=== PATIENT | female | born 1955 | race Two or more races ===

== ENCOUNTER → 2020-09-21 | Outpatient (CLI) | payer OTHER ==
[2020-09-21 08:51] LABS: Basophils # (auto) 0 10 ^3/uL (0-0.2); Basophils % (auto) 0.6 % (0.0-2.0); Eosinophils # (auto) 0.1 10 ^3/uL (0-0.8); Eosinophils % (auto) 2.5 % (0.0-7.0); Hematocrit 35.7 % (36.0-46.0); Hemoglobin 11.9 g/dL (12.2-16.2); Lymphocytes # (auto) 0.7 10 ^3/uL (0.4-5.4); Lymphocytes % (auto) 22.2 % (10.0-50.0); Mean Corpuscular Hemoglobin 28.3 pg (28.0-32.0); Mean Corpuscular Hgb Conc. 33.4 g/dL (32.0-36.0); Mean Corpuscular Volume 84.8 fL (80.0-100.0); Monocytes # (auto) 0.3 10 ^3/uL (0-1.3); Monocytes % (auto) 10.7 % (0.0-12.0); Neutrophils # (auto) 1.9 10 ^3/uL (1.6-8.6); Nucleated Red Blood Cells % 0.2 %; Platelet Count (auto) 89 10^3/uL (140-450); Red Blood Cells 4.21 10^6/uL (4.0-5.20); Red Cell Distribution Width 14.8 % (11.8-14.3)
[2020-09-21 08:53] LABS: Urine Bacteria MANY /hpf (None Seen); Urine Blood Negative /uL (Negative); Urine Mucus FEW (None Seen); Urine Specific Gravity 1.019 (1.001-1.035); Urine WBC 28 /hpf (0 - 5)
[2020-09-21 09:05] LABS: Albumin 2.9 g/dL (3.4-5.0); Calcium 9.1 mg/dL (8.5-10.1); Potassium 4.7 mmol/L (3.5-5.1)
[2020-09-21 09:10] LABS: BUN/Creatinine Ratio 22.1; Bilirubin, Total 1.1 mg/dL (0.2-1.0); Total Protein 7.1 g/dL (6.4-8.2)
[2020-09-21 09:17] LABS: Folate (Folic Acid) 18.25 ng/mL (5.38-24)
== END | disposition home or self-care (01) ==
LOC: LAB 08:21
PROVIDERS: ATTEND Internal Medicine
DX: Z00.00 Encounter for general adult medical examination without abnormal findings (principal)
CPT/HCPCS: 36415; 80053; 80061; 81001; 82274; 82306; 82607; 82746; 83036; 83880; 84443; 85025; 87086

== ENCOUNTER → 2020-11-05 | Outpatient (CLI) | payer OTHER | END | disposition home or self-care (01) | LOC: XYW 08:06 | PROVIDERS: ATTEND Internal Medicine | DX: I89.0 Lymphedema, not elsewhere classified (principal) | CPT/HCPCS: 93306 ==

== ENCOUNTER → 2021-01-20 | Outpatient (CLI) | payer OTHER ==
[2021-01-20 16:14] LABS: BUN/Creatinine Ratio 20.9; Calcium 9.2 mg/dL (8.5-10.1); Potassium 3.5 mmol/L (3.5-5.1)
== END | disposition home or self-care (01) ==
LOC: LAB 15:41
PROVIDERS: ATTEND Internal Medicine
DX: I89.0 Lymphedema, not elsewhere classified (principal)
CPT/HCPCS: 36415; 80048

== ENCOUNTER → 2021-09-21 | Outpatient (CLI) | payer OTHER ==
[2021-09-21 09:42] LABS: Basophils # (auto) 0 10 ^3/uL (0-0.2); Basophils % (auto) 0.5 % (0.0-2.0); Eosinophils # (auto) 0.1 10 ^3/uL (0-0.8); Eosinophils % (auto) 2.4 % (0.0-7.0); Hematocrit 36.2 % (36.0-46.0); Hemoglobin 12.2 g/dL (12.2-16.2); Lymphocytes # (auto) 0.7 10 ^3/uL (0.4-5.4); Lymphocytes % (auto) 24.2 % (10.0-50.0); Mean Corpuscular Hemoglobin 28.5 pg (28.0-32.0); Mean Corpuscular Hgb Conc. 33.8 g/dL (32.0-36.0); Mean Corpuscular Volume 84.4 fL (80.0-100.0); Monocytes # (auto) 0.3 10 ^3/uL (0-1.3); Monocytes % (auto) 11.5 % (0.0-12.0); Neutrophils # (auto) 1.8 10 ^3/uL (1.6-8.6); Neutrophils % (auto) 61.4 % (37.0-80.0); Nucleated Red Blood Cells % 0.3 %; Red Blood Cells 4.29 10^6/uL (4.0-5.20); Red Cell Distribution Width 16.1 % (11.8-14.3); White Blood Cell 2.9 10^3/uL (4.4-10.8)
[2021-09-21 11:39] LABS: Albumin 3.1 g/dL (3.4-5.0); BUN/Creatinine Ratio 17.6; Calcium 8.8 mg/dL (8.5-10.1); Total Protein 6.9 g/dL (6.4-8.2)
== END | disposition home or self-care (01) ==
LOC: LAB 09:18
PROVIDERS: ATTEND Student in an Organized Health Care Education/Training Program
DX: Z00.00 Encounter for general adult medical examination without abnormal findings (principal)
CPT/HCPCS: 36415; 80053; 80061; 85025

== ENCOUNTER → 2023-04-18 | Outpatient (CLI) | payer OTHER ==
[2023-04-18 10:45] LABS: Basophils # (auto) 0 10 ^3/uL (0-0.2); Basophils % (auto) 0.5 % (0.0-2.0); Eosinophils # (auto) 0 10 ^3/uL (0-0.8); Lymphocytes # (auto) 0.6 10 ^3/uL (0.4-5.4); Lymphocytes % (auto) 22.5 % (10.0-50.0); Mean Corpuscular Hemoglobin 27.9 pg (28.0-32.0); Mean Corpuscular Hgb Conc. 32.2 g/dL (32.0-36.0); Mean Corpuscular Volume 86.6 fL (80.0-100.0); Monocytes # (auto) 0.2 10 ^3/uL (0-1.3); Monocytes % (auto) 8.3 % (0.0-12.0); Neutrophils # (auto) 1.6 10 ^3/uL (1.6-8.6); Neutrophils % (auto) 66.7 % (37.0-80.0); Nucleated Red Blood Cells % 0.2 %; Red Blood Cells 3.58 10^6/uL (4.0-5.20); Red Cell Distribution Width 16.8 % (11.8-14.3); White Blood Cell 2.5 10^3/uL (4.4-10.8)
[2023-04-18 11:08] LABS: Urine Bacteria MOD /hpf (None Seen); Urine Blood Negative /uL (Negative); Urine Clarity HAZY (Clear); Urine Color Yellow (Yellow); Urine Hyaline Cast FEW /lpf (0 - 2); Urine Mucus FEW (None Seen); Urine Protein, UAD Negative (Negative); Urine WBC 27 /hpf (0 - 5); Urine pH 5.5 (5.0-8.0)
[2023-04-18 11:40] LABS: Alanine Aminotransferase 24 U/L (7-40); Albumin 3.2 g/dL (3.2-4.8); Alkaline Phosphatase 115 U/L (46-116); Anion Gap 7 (5-15); Aspartate Aminotransferase 42 U/L (13-40); BUN/Creatinine Ratio 16.9 (10.0-20.0); Blood Urea Nitrogen 11 mg/dL (9-23); Calcium 8.7 mg/dL (8.5-10.1); Carbon Dioxide 24 mmol/L (20-30); Chloride 114 mmol/L (98-107); Glucose 96 mg/dL (74-106); LDL Cholesterol 71 mg/dL (< 100); Potassium 3.9 mmol/L (3.5-5.1); Sodium 145 mmol/L (136-145); Triglycerides 66 mg/dL (< 150)
[2023-04-18 11:41] LABS: Bilirubin, Total 2.7 mg/dL (0.2-1.0); Cholesterol 140 mg/dL (< 200); HDL Cholesterol 50 mg/dL (40-59); Total Protein 6.2 g/dL (5.7-8.2)
== END | disposition home or self-care (01) ==
LOC: LAB 10:23
PROVIDERS: ATTEND Internal Medicine
DX: I10 Essential (primary) hypertension (principal)
CPT/HCPCS: 36415; 80053; 80061; 81001; 82306; 84443; 85025

== ENCOUNTER → 2023-07-05 | Outpatient (CLI) | payer OTHER | END | disposition home or self-care (01) | LOC: LAB 12:34 | PROVIDERS: ATTEND Internal Medicine | DX: Z12.11 Encounter for screening for malignant neoplasm of colon (principal) | CPT/HCPCS: 82274 ==

== ENCOUNTER → 2023-11-16 | Outpatient (CLI) | payer MEDICARE, MEDICAID | END | disposition home or self-care (01) | LOC: XYW 12:19 | PROVIDERS: ATTEND Internal Medicine | DX: R06.02 Shortness of breath (principal); I51.89 Other ill-defined heart diseases | CPT/HCPCS: 93306 ==

== ENCOUNTER → 2023-11-19 | Outpatient (CLI) | payer MEDICARE, MEDICAID ==
[2023-11-19 08:07] LABS: Basophils # (auto) 0 10 ^3/uL (0-0.2); Eosinophils # (auto) 0 10 ^3/uL (0-0.8); Lymphocytes # (auto) 0.5 10 ^3/uL (0.4-5.4); Monocytes # (auto) 0.2 10 ^3/uL (0-1.3); Neutrophils # (auto) 1.1 10 ^3/uL (1.6-8.6); Nucleated Red Blood Cells % 0.1 %; Red Cell Distribution Width 18.3 % (11.8-14.3)
[2023-11-19 08:08] LABS: Basophils % (auto) 0.5 % (0.0-2.0); Eosinophils % (auto) 2.5 % (0.0-7.0); Hematocrit 28.1 % (36.0-46.0); Hemoglobin 8.9 g/dL (12.2-16.2); Lymphocytes % (auto) 27.6 % (10.0-50.0); Mean Corpuscular Hemoglobin 27.1 pg (28.0-32.0); Mean Corpuscular Hgb Conc. 31.6 g/dL (32.0-36.0); Mean Corpuscular Volume 85.6 fL (80.0-100.0); Monocytes % (auto) 11.8 % (0.0-12.0); Neutrophils % (auto) 57.6 % (37.0-80.0); Red Blood Cells 3.29 10^6/uL (4.0-5.20)
[2023-11-19 08:19] LABS: White Blood Cell 1.9 10^3/uL (4.4-10.8)
[2023-11-19 08:43] LABS: Anisocytosis Slight; Hypochromia Slight; Ovalocytes FEW; Platelet Estimate Decreased
[2023-11-19 09:03] LABS: Alanine Aminotransferase 18 U/L (7-40); Albumin 2.9 g/dL (3.2-4.8); Alkaline Phosphatase 131 U/L (46-116); Anion Gap 8 (5-15); Aspartate Aminotransferase 40 U/L (13-40); BUN/Creatinine Ratio 15.9 (10.0-20.0); Blood Urea Nitrogen 10 mg/dL (9-23); Calcium 8.9 mg/dL (8.5-10.1); Carbon Dioxide 24 mmol/L (20-30); Chloride 112 mmol/L (98-107); Glucose 93 mg/dL (74-106); Sodium 144 mmol/L (136-145)
[2023-11-19 09:04] LABS: Bilirubin, Total 2.6 mg/dL (0.2-1.0); Total Protein 5.8 g/dL (5.7-8.2)
== END | disposition home or self-care (01) ==
LOC: LAB 07:48
PROVIDERS: ATTEND Internal Medicine
DX: I10 Essential (primary) hypertension (principal); E55.9 Vitamin D deficiency, unspecified; R73.03 Prediabetes; D64.9 Anemia, unspecified; Z86.2 Personal history of diseases of the blood and blood-forming organs and certain disorders involving the immune mechanism
CPT/HCPCS: 36415; 80053; 82274; 82306; 83036; 83540; 83550; 84443; 85025

== ENCOUNTER → 2023-11-20 | Outpatient (CLI) | payer MEDICARE, MEDICAID ==
[2023-11-20 07:25] LABS: Basophils # (auto) 0 10 ^3/uL (0-0.2); Eosinophils # (auto) 0.1 10 ^3/uL (0-0.8); Lymphocytes # (auto) 0.5 10 ^3/uL (0.4-5.4); Monocytes # (auto) 0.3 10 ^3/uL (0-1.3); Neutrophils # (auto) 1.4 10 ^3/uL (1.6-8.6); Red Blood Cells 3.39 10^6/uL (4.0-5.20); White Blood Cell 2.3 10^3/uL (4.4-10.8)
[2023-11-20 07:27] LABS: Basophils % (auto) 0.5 % (0.0-2.0); Eosinophils % (auto) 2.5 % (0.0-7.0); Hematocrit 28.9 % (36.0-46.0); Lymphocytes % (auto) 21.9 % (10.0-50.0); Mean Corpuscular Hemoglobin 26.7 pg (28.0-32.0); Mean Corpuscular Hgb Conc. 31.2 g/dL (32.0-36.0); Mean Corpuscular Volume 85.5 fL (80.0-100.0); Monocytes % (auto) 11.1 % (0.0-12.0); Nucleated Red Blood Cells % 0.3 %; Red Cell Distribution Width 18.2 % (11.8-14.3)
== END | disposition home or self-care (01) ==
LOC: LAB 06:35
PROVIDERS: ATTEND Internal Medicine
DX: I89.0 Lymphedema, not elsewhere classified (principal); D64.9 Anemia, unspecified
CPT/HCPCS: 36415; 85025

== ENCOUNTER → 2023-11-27 | Outpatient (CLI) | payer MEDICARE, MEDICAID ==
[2023-11-27 12:26] LABS: INR 1.51 (0.9-1.15); Prothrombin Time 15.5 sec (9.3-11.8)
== END | disposition home or self-care (01) ==
LOC: LAB 11:36
PROVIDERS: ATTEND Internal Medicine
DX: Z01.812 Encounter for preprocedural laboratory examination (principal); D61.818 Other pancytopenia
CPT/HCPCS: 36415; 85610

== ENCOUNTER → 2023-12-04 | Outpatient (CLI) | payer MEDICARE, MEDICAID ==
[~2023-12-04] VITALS: Ht 167.6 cm; Wt 99.8 kg
[~2023-12-04] MED LIST: FERR-7 PO; FURO1TAB31 PO; HYDR-4902 PO; LIDOCAINE 2%HCL (LOCAL ANESTH.) INJ 10ml MDV ONE; MIDAZOLAM HCL 2MG/2ML 2ml VIAL (1mg/ml) ONE; POTA-36 PO; TRAM50TA2 PO
[2023-12-04 09:15] VITALS: BP 149/67; PULSE 79; RESP 18
[2023-12-04] MEDS: fentaNYL CITRATE 100 MCG/2 ML VL IV ONE (09:15)
[2023-12-04] MEDS: MIDAZOLAM HCL 2MG/2ML 2ml VIAL (1mg/ml) IV ONE (09:15)
== END | disposition home or self-care (01) ==
LOC: XYW 08:26
PROVIDERS: ATTEND Internal Medicine
DX: D61.818 Other pancytopenia (principal); F41.9 Anxiety disorder, unspecified; M17.0 Bilateral primary osteoarthritis of knee; M16.0 Bilateral primary osteoarthritis of hip; I50.32 Chronic diastolic (congestive) heart failure; E66.01 Morbid (severe) obesity due to excess calories; Z79.899 Other long term (current) drug therapy; Z98.890 Other specified postprocedural states
CPT/HCPCS: 38222; 72192; 77012; C1729; J2001; J2250; 10005; 99152

== ENCOUNTER 2023-12-09 18:12 | Inpatient (IN) | payer MEDICARE, MEDICAID ==
[~2023-12-09] VITALS: Ht 170.2 cm; Wt 119.9 kg
[~2023-12-09 18:12] MED LIST changes: -FERR-7 PO; -FURO1TAB31 PO; -HYDR-4902 PO; -LIDOCAINE 2%HCL (LOCAL ANESTH.) INJ 10ml MDV ONE; -MIDAZOLAM HCL 2MG/2ML 2ml VIAL (1mg/ml) ONE; -POTA-36 PO
[2023-12-09 20:23] LABS: Alanine Aminotransferase 24 U/L (7-40); Alkaline Phosphatase 94 U/L (46-116); Anion Gap 12 (5-15); Aspartate Aminotransferase 49 U/L (13-40); BUN/Creatinine Ratio 12.9 (10.0-20.0); Bilirubin, Total 4.6 mg/dL (0.2-1.0); Blood Urea Nitrogen 9 mg/dL (9-23); Calcium 8.7 mg/dL (8.5-10.1); Carbon Dioxide 18 mmol/L (20-30); Chloride 109 mmol/L (98-107); Glucose 110 mg/dL (74-106); Potassium 3.8 mmol/L (3.5-5.1); Sodium 139 mmol/L (136-145); Total Protein 6.1 g/dL (5.7-8.2)
[2023-12-09] MEDS ORDERED: SODIUM CHLORIDE 0.9% 2,000 ML IV ONE (20:45)
[2023-12-09 21:36] LABS: Basophils # (auto) 0 10 ^3/uL (0-0.2); Basophils % (auto) 0.1 % (0.0-2.0); Eosinophils # (auto) 0 10 ^3/uL (0-0.8); Hematocrit 37.5 % (36.0-46.0); Hemoglobin 11.5 g/dL (12.2-16.2); Lymphocytes # (auto) 0.2 10 ^3/uL (0.4-5.4); Lymphocytes % (auto) 2.3 % (10.0-50.0); Mean Corpuscular Hgb Conc. 30.6 g/dL (32.0-36.0); Mean Corpuscular Volume 88.4 fL (80.0-100.0); Monocytes # (auto) 0.2 10 ^3/uL (0-1.3); Monocytes % (auto) 2.9 % (0.0-12.0); Neutrophils # (auto) 6.5 10 ^3/uL (1.6-8.6); Neutrophils % (auto) 94.7 % (37.0-80.0); Nucleated Red Blood Cells % 0.1 %; Red Blood Cells 4.25 10^6/uL (4.0-5.20); White Blood Cell 6.9 10^3/uL (4.4-10.8)
[2023-12-09 21:37] LABS: Red Cell Distribution Width 21.5 % (11.8-14.3)
[2023-12-09] MEDS: cefTRIAXone 1GM/50ML D5W 50 ML IV ONE (23:32)
[2023-12-09] MEDS: ACETAMINOPHEN 325 MG TAB PO ONE (23:32)
[2023-12-09] MEDS: VANCOMYCIN 1GM/200ML 200 ML IV ONE (23:33)
[2023-12-10] VITALS (7 sets, daily range): BP systolic 125–139; BP diastolic 49–53; PULSE 94–115; RESP 16–20; TEMP 97.5–98.2; O2SAT 93–99
[2023-12-10] MEDS ORDERED: NITROGLYCERIN 0.4 MG SL TAB SL PRN
[2023-12-10] MEDS: SODIUM CHLORIDE 0.9% 1,000 ML IV ONE (00:15)
[2023-12-10] MEDS ORDERED: ONDANSETRON HCL 4 MG/2 ML VIAL IV PRN (00:15)
[2023-12-10] MEDS ORDERED: MORPHINE SULFATE INJ 2 MG/ml SYRG IV PRN ×2 (00:15)
[2023-12-10 01:46] LABS: Urine Bacteria MANY /hpf (None Seen); Urine Blood Negative /uL (Negative); Urine Clarity Turbid (Clear); Urine Color Dark-Yellow (Yellow); Urine Mucus FEW (None Seen); Urine Protein, UAD TRACE (Negative); Urine Specific Gravity 1.021 (1.001-1.035); Urine Urobilinogen 3 mg/dL (Negative); Urine WBC 3 /hpf (0 - 5); Urine pH 5.5 (5.0-9.0)
[2023-12-10] MEDS ORDERED: FUROSEMIDE 40 MG TAB PO SCH (10:00)
[2023-12-10] MEDS ORDERED: ENOXAPARIN SOD 40 MG/0.4 ML SYRINGE SC SCH (10:00)
[2023-12-10] MEDS: ACETAMINOPHEN 325 MG TAB PO PRN (10:56)
[2023-12-10] MEDS ORDERED: HYDR-4902 PO (11:14)
[2023-12-10] MEDS ORDERED: FURO1TAB31 PO (11:14)
[2023-12-10] MEDS ORDERED: FERR-7 PO (11:14)
[2023-12-10] MEDS ORDERED: POTA-36 PO (11:14)
[2023-12-10] MEDS ORDERED: INFLUENZA QUAD 2023-2024 0.5 ML SYRG IM ONE (11:15)
[2023-12-10] MEDS ORDERED: PNEUMOCOCCAL VACC POLYS 25 MCG/0.5 ML VIAL IM ONE (11:15)
[2023-12-10 11:42] LABS: Alanine Aminotransferase 19 U/L (7-40); Albumin 2.7 g/dL (3.2-4.8); Alkaline Phosphatase 69 U/L (46-116); Anion Gap 11 (5-15); Aspartate Aminotransferase 26 U/L (13-40); BUN/Creatinine Ratio 19.8 (10.0-20.0); Blood Urea Nitrogen 16 mg/dL (9-23); Calcium 8.7 mg/dL (8.5-10.1); Carbon Dioxide 20 mmol/L (20-30); Chloride 108 mmol/L (98-107); Glucose 99 mg/dL (74-106); LDL Cholesterol 45 mg/dL (< 100); Magnesium 1.8 mg/dL (1.6-2.6); Potassium 3.7 mmol/L (3.5-5.1); Sodium 139 mmol/L (136-145); Triglycerides 73 mg/dL (< 150)
[2023-12-10 11:43] LABS: Bilirubin, Direct 2.4 mg/dL (<0.3); Bilirubin, Total 4.3 mg/dL (0.2-1.0); Cholesterol 114 mg/dL (< 200); HDL Cholesterol 32 mg/dL (40-59); Total Protein 5.3 g/dL (5.7-8.2)
[2023-12-10 11:47] LABS: Lactic Acid w/Reflex 8.4 mmol/L (0.4-2.0)
[2023-12-10 11:51] LABS: Basophils # (auto) 0 10 ^3/uL (0-0.2); CRP High Sensitivity 6.51 mg/dL (<1.0); Eosinophils # (auto) 0 10 ^3/uL (0-0.8); Hemoglobin 10.4 g/dL (12.2-16.2); Lymphocytes # (auto) 0.3 10 ^3/uL (0.4-5.4); Monocytes # (auto) 0.1 10 ^3/uL (0-1.3); Neutrophils # (auto) 6.3 10 ^3/uL (1.6-8.6); White Blood Cell 6.7 10^3/uL (4.4-10.8)
[2023-12-10 11:53] LABS: Hematocrit 33.4 % (36.0-46.0); Lymphocytes % (auto) 4.5 % (10.0-50.0); Mean Corpuscular Hemoglobin 27.3 pg (28.0-32.0); Mean Corpuscular Hgb Conc. 31.3 g/dL (32.0-36.0); Mean Corpuscular Volume 87.3 fL (80.0-100.0); Monocytes % (auto) 1.8 % (0.0-12.0); Neutrophils % (auto) 93.7 % (37.0-80.0); Red Blood Cells 3.82 10^6/uL (4.0-5.20)
[2023-12-10 12:01] LABS: Red Cell Distribution Width 21.5 % (11.8-14.3)
[2023-12-10 12:04] LABS: Partial Thromboplastin Time 38.9 SEC (24.5-34.5); Prothrombin Time 20.1 sec (9.3-11.8)
[2023-12-10] MEDS ORDERED: VANCOMYCIN PER PHARMACY 0 MG IV SCH (12:15)
[2023-12-10 12:21] LABS: Anisocytosis Slight; Platelet Estimate Decreased
[2023-12-10] MEDS: VANCOMYCIN 1GM/200ML 200 ML IV SCH (12:59)
[2023-12-10] MEDS: HYDROcodone-ACET 5/325MG TAB PO PRN (13:29)
[2023-12-10] MEDS ORDERED: IOHEXOL 350 MG/ML 100ML IJ ONE (15:28)
[2023-12-10 15:34] LABS: Free T3 1.35 pg/mL (2.3-4.2); Free T4 (Free Thyroxine) 1.03 ng/dL (0.89-1.76)
[2023-12-10] MEDS ORDERED: cefTRIAXone 1GM/50ML D5W 50 ML IV SCH (21:00)
[2023-12-10] MEDS: PIPERACILLIN-TAZOB 3.375GM 100 ML IV SCH (21:26)
[2023-12-11] VITALS (7 sets, daily range): BP systolic 115–148; BP diastolic 43–55; PULSE 89–98; RESP 16–20; TEMP 97.3–98.1; O2SAT 95–99
[2023-12-11 05:49] LABS: Basophils # (auto) 0 10 ^3/uL (0-0.2); Eosinophils # (auto) 0 10 ^3/uL (0-0.8); Hematocrit 30.4 % (36.0-46.0); Hemoglobin 9.4 g/dL (12.2-16.2); Lymphocytes # (auto) 0.4 10 ^3/uL (0.4-5.4); Lymphocytes % (auto) 5.9 % (10.0-50.0); Mean Corpuscular Hemoglobin 26.7 pg (28.0-32.0); Mean Corpuscular Volume 86.1 fL (80.0-100.0); Monocytes # (auto) 0.2 10 ^3/uL (0-1.3); Monocytes % (auto) 3.3 % (0.0-12.0); Neutrophils # (auto) 5.8 10 ^3/uL (1.6-8.6); Neutrophils % (auto) 90.8 % (37.0-80.0); Nucleated Red Blood Cells % 0.2 %; Red Blood Cells 3.53 10^6/uL (4.0-5.20); Red Cell Distribution Width 21.6 % (11.8-14.3); White Blood Cell 6.4 10^3/uL (4.4-10.8)
[2023-12-11 05:56] LABS: Alanine Aminotransferase 14 U/L (7-40); Albumin 2.4 g/dL (3.2-4.8); Alkaline Phosphatase 52 U/L (46-116); Anion Gap 8 (5-15); Aspartate Aminotransferase 22 U/L (13-40); BUN/Creatinine Ratio 21.6 (10.0-20.0); Bilirubin, Total 4.5 mg/dL (0.2-1.0); Blood Urea Nitrogen 16 mg/dL (9-23); Calcium 8.9 mg/dL (8.7-10.4); Carbon Dioxide 21 mmol/L (20-30); Chloride 107 mmol/L (98-107); Glucose 88 mg/dL (74-106); Sodium 136 mmol/L (136-145)
[2023-12-11 06:24] LABS: Lactic Acid w/Reflex 4.3 mmol/L (0.4-2.0)
[2023-12-11] MEDS: FUROSEMIDE 40 MG/4 ML VIAL IV ONE (09:28)
[2023-12-11] MEDS: metroNIDAZOLE 500MG/100ML 100 ML IV SCH (14:00)
[2023-12-11 15:01] LABS: Lactic Acid w/Reflex 3.6 mmol/L (0.4-2.0)
[2023-12-11] MEDS: CEFEPIME 1GM/ 50ML 50 ML IV SCH (17:33)
[2023-12-11] MEDS: VANCOMYCIN 1GM/200ML 200 ML IV SCH (23:06)
[2023-12-12] VITALS (8 sets, daily range): BP systolic 115–138; BP diastolic 46–54; PULSE 79–90; RESP 17–19; TEMP 90–99.3; O2SAT 92–100
[2023-12-12] MEDS: CEFEPIME 1GM/ 50ML 50 ML IV SCH (01:45)
[2023-12-12 06:30] LABS: Basophils # (auto) 0 10 ^3/uL (0-0.2); Basophils % (auto) 0.1 % (0.0-2.0); Eosinophils # (auto) 0 10 ^3/uL (0-0.8); Eosinophils % (auto) 0.1 % (0.0-7.0); Hematocrit 29.2 % (36.0-46.0); Hemoglobin 9.2 g/dL (12.2-16.2); Lymphocytes # (auto) 0.3 10 ^3/uL (0.4-5.4); Lymphocytes % (auto) 5.7 % (10.0-50.0); Mean Corpuscular Hemoglobin 27.1 pg (28.0-32.0); Mean Corpuscular Hgb Conc. 31.3 g/dL (32.0-36.0); Mean Corpuscular Volume 86.6 fL (80.0-100.0); Monocytes # (auto) 0.3 10 ^3/uL (0-1.3); Neutrophils # (auto) 5.3 10 ^3/uL (1.6-8.6); Neutrophils % (auto) 89.1 % (37.0-80.0); Nucleated Red Blood Cells % 0.2 %; Red Blood Cells 3.37 10^6/uL (4.0-5.20); Red Cell Distribution Width 21.1 % (11.8-14.3)
[2023-12-12 06:40] LABS: Alanine Aminotransferase 15 U/L (7-40); Albumin 2.3 g/dL (3.2-4.8); Alkaline Phosphatase 63 U/L (46-116); Anion Gap 8 (5-15); Aspartate Aminotransferase 28 U/L (13-40); BUN/Creatinine Ratio 25.6 (10.0-20.0); Bilirubin, Total 4.2 mg/dL (0.2-1.0); Blood Urea Nitrogen 21 mg/dL (9-23); Calcium 8.8 mg/dL (8.7-10.4); Carbon Dioxide 22 mmol/L (20-30); Chloride 104 mmol/L (98-107); Glucose 101 mg/dL (74-106); Magnesium 2.1 mg/dL (1.6-2.6); Potassium 3.6 mmol/L (3.5-5.1); Sodium 134 mmol/L (136-145); Total Protein 4.8 g/dL (5.7-8.2)
[2023-12-12] MEDS: FUROSEMIDE 40 MG/4 ML VIAL IV SCH (10:47)
[2023-12-12] MEDS: metroNIDAZOLE 500 MG TAB PO SCH (16:03)
[2023-12-12] MEDS: cefTRIAXone 1GM/50ML D5W 50 ML IV SCH (18:25)
[2023-12-12] MEDS: NYSTATIN TOPICAL POWDER 15GM TOP SCH (22:49)
[2023-12-13 05:00] VITALS: BP 154/47; PULSE 83; RESP 19; TEMP 98.6; O2SAT 95
[2023-12-13 05:49] VITALS: BP 141/56; PULSE 77
[2023-12-13 06:39] LABS: Hematocrit 28.8 % (36.0-46.0); Hemoglobin 9.3 g/dL (12.2-16.2); Mean Corpuscular Hemoglobin 27.7 pg (28.0-32.0); Mean Corpuscular Hgb Conc. 32.3 g/dL (32.0-36.0); Mean Corpuscular Volume 85.7 fL (80.0-100.0); Red Blood Cells 3.36 10^6/uL (4.0-5.20); White Blood Cell 5.4 10^3/uL (4.4-10.8)
[2023-12-13 06:47] LABS: Red Cell Distribution Width 22.3 % (11.8-14.3)
[2023-12-13 06:48] LABS: Basophils % (manual) 0 (0.0-2.0); Blast Cells 0; Myelocytes % 0; Promyelocytes % 0; Reactive Lymphocytes 0
[2023-12-13 07:04] LABS: Alanine Aminotransferase 22 U/L (7-40); Albumin 2.3 g/dL (3.2-4.8); Alkaline Phosphatase 85 U/L (46-116); Anion Gap 5 (5-15); BUN/Creatinine Ratio 29.7 (10.0-20.0); Blood Urea Nitrogen 19 mg/dL (9-23); Calcium 8.5 mg/dL (8.5-10.1); Carbon Dioxide 24 mmol/L (20-30); Chloride 105 mmol/L (98-107); Glucose 114 mg/dL (74-106); Magnesium 1.9 mg/dL (1.6-2.6); Potassium 3.3 mmol/L (3.5-5.1); Sodium 134 mmol/L (136-145)
[2023-12-13 07:05] LABS: Aspartate Aminotransferase 48 U/L (13-40); Bilirubin, Total 4.6 mg/dL (0.2-1.0)
[2023-12-13 07:10] LABS: Lactic Acid w/Reflex 2.6 mmol/L (0.4-2.0)
[2023-12-13 08:10] LABS: Band Neutrophils % (manual) 8; Eosinophils % (manual) 2 (0-7); Lymphocytes % (manual) 14 (10.0-50.0); Metamyelocytes % 3; Monocytes % (manual) 5 (0-12)
[2023-12-13 08:11] LABS: Anisocytosis Slight; Platelet Estimate Decreased
[2023-12-13 08:17] VITALS: PULSE 82; RESP 17; O2SAT 93
[2023-12-13 08:37] LABS: Erythrocyte Sedimentation Rate 8 mm/hr (0-20)
[2023-12-13] MEDS: POTASSIUM EFFERVESENT TAB 25 MEQ PO ONE (08:54)
[2023-12-13 09:00] VITALS: BP 141/54; PULSE 82; RESP 17; TEMP 98.7; O2SAT 93
[2023-12-13 09:36] LABS: Hepatitis B Surface Antibody Negative (Negative)
[2023-12-13 09:48] LABS: Hepatitis B Surface Antigen Negative (Negative)
[2023-12-13] MEDS: FUROSEMIDE 20 MG/2 ML VIAL IV SCH (09:52)
[2023-12-13 10:10] LABS: Hepatitis C Antibody Negative (Negative)
[2023-12-13 13:00] VITALS: BP 109/70; PULSE 85; RESP 18; TEMP 97.7; O2SAT 93
[2023-12-13 17:00] VITALS: BP 136/51; PULSE 74; RESP 17; TEMP 98.2; O2SAT 98
[2023-12-14] VITALS (8 sets, daily range): BP systolic 127–150; BP diastolic 48–64; PULSE 80–87; RESP 17–21; TEMP 97.7–98.1; O2SAT 94–98
[2023-12-14 06:10] LABS: Basophils # (auto) 0 10 ^3/uL (0-0.2); Basophils % (auto) 0.1 % (0.0-2.0); Eosinophils # (auto) 0.1 10 ^3/uL (0-0.8); Eosinophils % (auto) 1.8 % (0.0-7.0); Hematocrit 30.2 % (36.0-46.0); Hemoglobin 9.8 g/dL (12.2-16.2); Lymphocytes # (auto) 0.8 10 ^3/uL (0.4-5.4); Lymphocytes % (auto) 19.9 % (10.0-50.0); Mean Corpuscular Hgb Conc. 32.4 g/dL (32.0-36.0); Mean Corpuscular Volume 86.6 fL (80.0-100.0); Monocytes # (auto) 0.6 10 ^3/uL (0-1.3); Monocytes % (auto) 14.7 % (0.0-12.0); Neutrophils # (auto) 2.7 10 ^3/uL (1.6-8.6); Neutrophils % (auto) 63.5 % (37.0-80.0); Nucleated Red Blood Cells % 0.1 %; Red Blood Cells 3.49 10^6/uL (4.0-5.20); Red Cell Distribution Width 21.9 % (11.8-14.3); White Blood Cell 4.2 10^3/uL (4.4-10.8)
[2023-12-14 06:21] LABS: Alanine Aminotransferase 30 U/L (7-40); Albumin 2.3 g/dL (3.2-4.8); Alkaline Phosphatase 113 U/L (46-116); Anion Gap 3 (5-15); Aspartate Aminotransferase 62 U/L (13-40); Bilirubin, Total 4.7 mg/dL (0.2-1.0); Blood Urea Nitrogen 15 mg/dL (9-23); Calcium 8.6 mg/dL (8.7-10.4); Carbon Dioxide 27 mmol/L (20-30); Chloride 105 mmol/L (98-107); Glucose 93 mg/dL (74-106); Magnesium 1.9 mg/dL (1.6-2.6); Potassium 3.4 mmol/L (3.5-5.1); Sodium 135 mmol/L (136-145); Total Protein 5.1 g/dL (5.7-8.2)
[2023-12-14] MEDS: POTASSIUM CHL 20 Meq TABLET PO ONE (07:09)
[2023-12-14 08:06] LABS: Anti-Centromere B Antibody <0.2 AI (0.0-0.9); Anti-Jo-1 Antibody <0.2 AI (0.0-0.9); Anti-dsDNA Antibody 1 IU/mL (0-9); Antichromatin Antibody <0.2 AI (0.0-0.9); Antiscleroderma-70 Antibody <0.2 AI (0.0-0.9); RNP Antibody 5.5 AI (0.0-0.9); Sjogren's Anti-SS-A Antibody <0.2 AI (0.0-0.9); Sjogren's Anti-SS-B Antibody <0.2 AI (0.0-0.9); Smith Antibody <0.2 AI (0.0-0.9)
[2023-12-14] MEDS: LORazepam 2MG/ML-1ML VIAL IV ONE (17:20)
[2023-12-14] MEDS: NEOMYCIN-BACITRACIN-POLYM 15GM TOP OINT TOP SCH (22:09)
[2023-12-15] VITALS (7 sets, daily range): BP systolic 109–142; BP diastolic 43–61; PULSE 85–91; RESP 17–20; TEMP 97.6–98.4; O2SAT 94–97
[2023-12-15 06:30] LABS: Hematocrit 28.8 % (36.0-46.0); Hemoglobin 9.6 g/dL (12.2-16.2); Mean Corpuscular Hgb Conc. 33.3 g/dL (32.0-36.0)
[2023-12-15 06:31] LABS: Mean Corpuscular Hemoglobin 28.1 pg (28.0-32.0); Mean Corpuscular Volume 84.3 fL (80.0-100.0); Red Blood Cells 3.42 10^6/uL (4.0-5.20); White Blood Cell 5.1 10^3/uL (4.4-10.8)
[2023-12-15 06:32] LABS: Red Cell Distribution Width 21.6 % (11.8-14.3)
[2023-12-15 06:33] LABS: Basophils % (manual) 0 (0.0-2.0); Blast Cells 0; Myelocytes % 0; Promyelocytes % 0; Reactive Lymphocytes 0
[2023-12-15 06:41] LABS: INR 1.6 (0.9-1.15); Partial Thromboplastin Time 34.2 SEC (24.5-34.5); Prothrombin Time 16.4 sec (9.3-11.8)
[2023-12-15 06:44] LABS: Band Neutrophils % (manual) 4; Eosinophils % (manual) 5 (0-7); Lymphocytes % (manual) 21 (10.0-50.0); Metamyelocytes % 1; Monocytes % (manual) 15 (0-12); Platelet Estimate Decreased
[2023-12-15 06:47] LABS: Alanine Aminotransferase 30 U/L (7-40); Alkaline Phosphatase 130 U/L (46-116); Anion Gap 3 (5-15); Aspartate Aminotransferase 58 U/L (13-40); BUN/Creatinine Ratio 27.8 (10.0-20.0); Blood Urea Nitrogen 15 mg/dL (9-23); Calcium 8.4 mg/dL (8.5-10.1); Carbon Dioxide 28 mmol/L (20-30); Chloride 105 mmol/L (98-107); Glucose 91 mg/dL (74-106); Magnesium 1.8 mg/dL (1.6-2.6); Potassium 3.8 mmol/L (3.5-5.1); Sodium 136 mmol/L (136-145)
[2023-12-15 06:48] LABS: Albumin 2.4 g/dL (3.2-4.8); Bilirubin, Total 4.3 mg/dL (0.2-1.0); Total Protein 5.1 g/dL (5.7-8.2)
[2023-12-15 06:56] LABS: CRP High Sensitivity 3.21 mg/dL (<1.0)
[2023-12-15 10:07] LABS: Actin (Smooth Muscle) Antibody 34 Units (0-19); Mitochondrial (M2) Antibody <20.0 Units (0.0-20.0)
[2023-12-16] VITALS (7 sets, daily range): BP systolic 122–134; BP diastolic 47–61; PULSE 84–92; RESP 17–20; TEMP 97.5–98.3; O2SAT 93–96
[2023-12-16 07:05] LABS: Red Blood Cells 3.48 10^6/uL (4.0-5.20)
[2023-12-16 07:08] LABS: Hematocrit 30.3 % (36.0-46.0); Hemoglobin 9.7 g/dL (12.2-16.2); Mean Corpuscular Hemoglobin 27.9 pg (28.0-32.0); Mean Corpuscular Volume 87.3 fL (80.0-100.0); White Blood Cell 3.9 10^3/uL (4.4-10.8)
[2023-12-16 07:35] LABS: Basophils % (manual) 0 (0.0-2.0); Blast Cells 0; Metamyelocytes % 0; Myelocytes % 0; Promyelocytes % 0; Reactive Lymphocytes 0; Red Cell Distribution Width 21.9 % (11.8-14.3)
[2023-12-16 07:50] LABS: Alanine Aminotransferase 30 U/L (7-40); Albumin 2.2 g/dL (3.2-4.8); Alkaline Phosphatase 141 U/L (46-116); Anion Gap 4 (5-15); Aspartate Aminotransferase 68 U/L (13-40); BUN/Creatinine Ratio 21.1 (10.0-20.0); Blood Urea Nitrogen 12 mg/dL (9-23); Calcium 8.3 mg/dL (8.5-10.1); Carbon Dioxide 25 mmol/L (20-30); Chloride 106 mmol/L (98-107); Glucose 79 mg/dL (74-106); Magnesium 1.9 mg/dL (1.6-2.6); Phosphorus 2.7 mg/dL (2.4-5.1); Sodium 135 mmol/L (136-145)
[2023-12-16 07:51] LABS: Bilirubin, Total 3.7 mg/dL (0.2-1.0)
[2023-12-16 07:59] LABS: CRP High Sensitivity 2.26 mg/dL (<1.0)
[2023-12-16 08:43] LABS: Monocytes % (manual) 16 (0-12)
[2023-12-16 08:44] LABS: Band Neutrophils % (manual) 2; Eosinophils % (manual) 5 (0-7); Lymphocytes % (manual) 21 (10.0-50.0)
[2023-12-16 08:45] LABS: Anisocytosis Slight; Platelet Estimate Markedly Decreased
[2023-12-17] VITALS (8 sets, daily range): BP systolic 117–148; BP diastolic 46–63; PULSE 83–90; RESP 18–20; TEMP 97.6–98; O2SAT 93–98
[2023-12-17 06:37] LABS: Alanine Aminotransferase 31 U/L (7-40); Alkaline Phosphatase 144 U/L (46-116); Anion Gap 4 (5-15); BUN/Creatinine Ratio 22.8 (10.0-20.0); Blood Urea Nitrogen 13 mg/dL (9-23); Calcium 8.2 mg/dL (8.7-10.4); Carbon Dioxide 27 mmol/L (20-30); Chloride 106 mmol/L (98-107); Glucose 85 mg/dL (74-106); Magnesium 1.8 mg/dL (1.6-2.6); Potassium 3.8 mmol/L (3.5-5.1); Sodium 137 mmol/L (136-145)
[2023-12-17 06:38] LABS: Albumin 2.2 g/dL (3.2-4.8); Aspartate Aminotransferase 65 U/L (13-40)
[2023-12-17 06:39] LABS: Bilirubin, Total 3.6 mg/dL (0.2-1.0); Total Protein 4.9 g/dL (5.7-8.2)
[2023-12-17 06:46] LABS: Basophils # (auto) 0 10 ^3/uL (0-0.2); Eosinophils # (auto) 0.2 10 ^3/uL (0-0.8); Hemoglobin 9.6 g/dL (12.2-16.2); Lymphocytes # (auto) 0.8 10 ^3/uL (0.4-5.4); Neutrophils # (auto) 2.3 10 ^3/uL (1.6-8.6); Red Blood Cells 3.46 10^6/uL (4.0-5.20); White Blood Cell 3.8 10^3/uL (4.4-10.8)
[2023-12-17 06:48] LABS: Basophils % (auto) 0.2 % (0.0-2.0); Eosinophils % (auto) 4.4 % (0.0-7.0); Hematocrit 30.3 % (36.0-46.0); Mean Corpuscular Hemoglobin 27.9 pg (28.0-32.0); Mean Corpuscular Hgb Conc. 31.8 g/dL (32.0-36.0); Mean Corpuscular Volume 87.6 fL (80.0-100.0); Monocytes # (auto) 0.5 10 ^3/uL (0-1.3); Monocytes % (auto) 13.8 % (0.0-12.0); Neutrophils % (auto) 60.6 % (37.0-80.0); Nucleated Red Blood Cells % 0.3 %
[2023-12-17 06:59] LABS: Red Cell Distribution Width 22.3 % (11.8-14.3)
[2023-12-17 08:13] LABS: INR 1.57 (0.9-1.15); Partial Thromboplastin Time 32.8 SEC (24.5-34.5); Prothrombin Time 16.1 sec (9.3-11.8)
[2023-12-17] MEDS: CEFPODOXIME PROXETIL 200 MG TAB PO SCH (21:06)
[2023-12-18] VITALS (7 sets, daily range): BP systolic 96–145; BP diastolic 45–66; PULSE 72–100; RESP 13–20; TEMP 97.5–98.4; O2SAT 94–98
[2023-12-18 06:37] LABS: Hematocrit 29.1 % (36.0-46.0); Hemoglobin 9.5 g/dL (12.2-16.2); Mean Corpuscular Hemoglobin 28.4 pg (28.0-32.0); Red Cell Distribution Width 23.1 % (11.8-14.3); White Blood Cell 3.4 10^3/uL (4.4-10.8)
[2023-12-18 06:41] LABS: Mean Corpuscular Hgb Conc. 32.7 g/dL (32.0-36.0); Mean Corpuscular Volume 86.7 fL (80.0-100.0); Red Blood Cells 3.35 10^6/uL (4.0-5.20)
[2023-12-18 06:50] LABS: Alanine Aminotransferase 27 U/L (7-40); Alkaline Phosphatase 120 U/L (46-116); Anion Gap 5 (5-15); Aspartate Aminotransferase 53 U/L (13-40); BUN/Creatinine Ratio 22.9 (10.0-20.0); Blood Urea Nitrogen 11 mg/dL (9-23); Calcium 8.2 mg/dL (8.5-10.1); Carbon Dioxide 26 mmol/L (20-30); Chloride 105 mmol/L (98-107); Glucose 81 mg/dL (74-106); Magnesium 1.8 mg/dL (1.6-2.6); Potassium 3.5 mmol/L (3.5-5.1); Sodium 136 mmol/L (136-145)
[2023-12-18 06:51] LABS: Albumin 2.2 g/dL (3.2-4.8); Total Protein 4.8 g/dL (5.7-8.2)
[2023-12-18 07:02] LABS: Band Neutrophils % (manual) 0; Basophils % (manual) 0 (0.0-2.0); Blast Cells 0; Metamyelocytes % 0; Myelocytes % 0; Promyelocytes % 0; Reactive Lymphocytes 0
[2023-12-18 07:52] LABS: Anisocytosis Slight; Eosinophils % (manual) 3 (0-7); Hypochromia Slight; Lymphocytes % (manual) 25 (10.0-50.0); Monocytes % (manual) 8 (0-12); Platelet Estimate Decreased
[2023-12-18] MEDS: POTASSIUM CHL 20 Meq TABLET PO ONE (11:37)
[2023-12-18] MEDS: FUROSEMIDE 20 MG TAB PO SCH (11:39)
[2023-12-18] MEDS: LORazepam 2MG/ML-1ML VIAL IV ONE (13:44)
[2023-12-18] MEDS: MORPHINE SULFATE INJ 2 MG/ml SYRG IV PRN (13:45)
[2023-12-19 01:00] VITALS: BP 124/56; PULSE 96; RESP 18; TEMP 98.6; O2SAT 93
[2023-12-19 05:00] VITALS: BP 121/47; PULSE 95; RESP 18; TEMP 98.5; O2SAT 93
[2023-12-19 07:25] LABS: Basophils # (auto) 0 10 ^3/uL (0-0.2); Basophils % (auto) 0.2 % (0.0-2.0); Eosinophils # (auto) 0.1 10 ^3/uL (0-0.8); Eosinophils % (auto) 2.6 % (0.0-7.0); Hemoglobin 9.4 g/dL (12.2-16.2); Lymphocytes # (auto) 0.6 10 ^3/uL (0.4-5.4); Lymphocytes % (auto) 13.6 % (10.0-50.0); Mean Corpuscular Hemoglobin 28.5 pg (28.0-32.0); Mean Corpuscular Hgb Conc. 32.3 g/dL (32.0-36.0); Mean Corpuscular Volume 88.1 fL (80.0-100.0); Monocytes # (auto) 0.5 10 ^3/uL (0-1.3); Monocytes % (auto) 12.1 % (0.0-12.0); Neutrophils # (auto) 3.1 10 ^3/uL (1.6-8.6); Neutrophils % (auto) 71.5 % (37.0-80.0); Nucleated Red Blood Cells % 0.1 %; Red Blood Cells 3.29 10^6/uL (4.0-5.20); Red Cell Distribution Width 23.3 % (11.8-14.3); White Blood Cell 4.3 10^3/uL (4.4-10.8)
[2023-12-19 07:46] LABS: Alanine Aminotransferase 26 U/L (7-40); Albumin 2.1 g/dL (3.2-4.8); Alkaline Phosphatase 132 U/L (46-116); Anion Gap 6 (5-15); Aspartate Aminotransferase 56 U/L (13-40); BUN/Creatinine Ratio 18.6 (10.0-20.0); Blood Urea Nitrogen 11 mg/dL (9-23); Carbon Dioxide 24 mmol/L (20-30); Chloride 106 mmol/L (98-107); Glucose 83 mg/dL (74-106); Potassium 4.1 mmol/L (3.5-5.1); Sodium 136 mmol/L (136-145)
[2023-12-19 07:47] LABS: Bilirubin, Total 3.4 mg/dL (0.2-1.0); Total Protein 4.9 g/dL (5.7-8.2)
[2023-12-19 08:00] VITALS: RESP 20
[2023-12-19 09:00] VITALS: BP 138/55; PULSE 85; RESP 18; TEMP 98.5; O2SAT 95
[2023-12-19] MEDS ORDERED: NYS15PW TOP (11:56)
[2023-12-19] MEDS ORDERED: MET500T PO (11:56)
[2023-12-19] MEDS ORDERED: CEFP200T15 PO (11:56)
[2023-12-19 13:00] VITALS: BP 130/61; PULSE 98; RESP 18; TEMP 97.8; O2SAT 98
[2023-12-19 13:52] VITALS: BP 138/55; PULSE 98; RESP 18; TEMP 36.9; O2SAT 98
== END 2023-12-19 14:50 | disposition home or self-care (01) | DRG 871 ==
LOC: ER 18:12 → EDUNIT# 18:12 → EDBD 18:12 → EDUNIT# 23:59 → TELE 23:59 → TELE-CENTR 12-10 10:49 → CENTRAL 12-11 13:25
PROVIDERS: ADMIT Internal Medicine; ATTEND Internal Medicine
DX: A40.3 Sepsis due to Streptococcus pneumoniae (principal); J13 Pneumonia due to Streptococcus pneumoniae; I50.32 Chronic diastolic (congestive) heart failure; E87.20 Acidosis, unspecified; E44.1 Mild protein-calorie malnutrition; D68.9 Coagulation defect, unspecified; R18.8 Other ascites; D61.818 Other pancytopenia; K80.20 Calculus of gallbladder without cholecystitis without obstruction; Z66 Do not resuscitate; R74.01 Elevation of levels of liver transaminase levels; K74.60 Unspecified cirrhosis of liver; K76.0 Fatty (change of) liver, not elsewhere classified; E66.01 Morbid (severe) obesity due to excess calories; E07.81 Sick-euthyroid syndrome; E80.6 Other disorders of bilirubin metabolism; D69.59 Other secondary thrombocytopenia; E88.09 Other disorders of plasma-protein metabolism, not elsewhere classified; E87.6 Hypokalemia; D46.9 Myelodysplastic syndrome, unspecified; B37.2 Candidiasis of skin and nail; Z96.643 Presence of artificial hip joint, bilateral; Z79.899 Other long term (current) drug therapy; K42.9 Umbilical hernia without obstruction or gangrene; Z68.39 Body mass index [BMI] 39.0-39.9, adult; M19.90 Unspecified osteoarthritis, unspecified site
CPT/HCPCS: 36415; 71045; 74175; 74176; 76604; 76705; 78226; 80053; 80061; 80202; 80320; 81001; 82105; 82140; 82248; 82270; 82728; 83516; 83540; 83550; 83605; 83615; 83735; 83880; 84100; 84439; 84443; 84481; 85007; 85025; 85027; 85045; 85610; 85652; 85730; 86141; 86225; 86235; 86706; 86803; 86850; 86880; 86900; 86901; 87040; 87077; 87186; 87340; 96361; 96365; 96368; 97110; 97116; 97163; 97530; G0378; J2543; J3490

== ENCOUNTER 2024-02-06 15:51 | Inpatient (IN) | payer MEDICARE, MEDICAID ==
[~2024-02-06] VITALS: Ht 175.3 cm; Wt 131.7 kg
[2024-02-06] MEDS: ALBUMIN 25% 100 ML IV ONE (00:19)
[2024-02-06] MEDS: PIPERACILLIN-TAZOB 3.375GM 100 ML IV ONE (03:19)
[~2024-02-06 15:51] MED LIST changes: +CEFP200T15 PO; +FERR-7 PO; +FURO1TAB31 PO; +HYDR-4902 PO; +MET500T PO; +NYS15PW TOP; +POTA-36 PO
[2024-02-06 16:51] LABS: Basophils # (auto) 0 10 ^3/uL (0-0.2); Basophils % (auto) 0.1 % (0.0-2.0); Eosinophils # (auto) 0.1 10 ^3/uL (0-0.8); Eosinophils % (auto) 2.4 % (0.0-7.0); Hematocrit 34.7 % (36.0-46.0); Hemoglobin 11.6 g/dL (12.2-16.2); Lymphocytes # (auto) 0.6 10 ^3/uL (0.4-5.4); Lymphocytes % (auto) 13.2 % (10.0-50.0); Mean Corpuscular Hgb Conc. 33.4 g/dL (32.0-36.0); Mean Corpuscular Volume 92.8 fL (80.0-100.0); Monocytes # (auto) 0.6 10 ^3/uL (0-1.3); Monocytes % (auto) 12.9 % (0.0-12.0); Neutrophils # (auto) 3.1 10 ^3/uL (1.6-8.6); Neutrophils % (auto) 71.4 % (37.0-80.0); Nucleated Red Blood Cells % 0.1 %; Red Blood Cells 3.74 10^6/uL (4.0-5.20); Red Cell Distribution Width 19.3 % (11.8-14.3); White Blood Cell 4.3 10^3/uL (4.4-10.8)
[2024-02-06 17:19] LABS: Alanine Aminotransferase 26 U/L (7-40); Albumin 2.4 g/dL (3.2-4.8); Alkaline Phosphatase 164 U/L (46-116); Anion Gap 8 (5-15); Aspartate Aminotransferase 63 U/L (13-40); BUN/Creatinine Ratio 14.5 (10.0-20.0); Blood Urea Nitrogen 11 mg/dL (9-23); Calcium 8.5 mg/dL (8.7-10.4); Carbon Dioxide 24 mmol/L (20-30); Chloride 104 mmol/L (98-107); Glucose 95 mg/dL (74-106); Potassium 3.5 mmol/L (3.5-5.1); Sodium 136 mmol/L (136-145)
[2024-02-06 17:20] LABS: Bilirubin, Total 5.4 mg/dL (0.2-1.0); Total Protein 5.8 g/dL (5.7-8.2)
[2024-02-06] MEDS ORDERED: ALBUTEROL SULF 2.5 MG/0.5ML(0.5%) NEB SOLN NEB PRN (18:15)
[2024-02-06] MEDS ORDERED: IPRATROPIUM BROM 0.5 MG/2.5ML INH SOL NEB PRN (18:15)
[2024-02-06] MEDS ORDERED: LORazepam 0.5 MG TAB PO PRN (18:15)
[2024-02-06 19:18] LABS: Erythrocyte Sedimentation Rate 22 mm/hr (0-20)
[2024-02-06 19:43] LABS: Lactic Acid w/Reflex 2.6 mmol/L (0.4-2.0)
[2024-02-06] MEDS: ACETAMINOPHEN 325 MG TAB PO PRN (20:47)
[2024-02-06] MEDS ORDERED: VANCOMYCIN PER PHARMACY 0 MG IV STA (21:26)
[2024-02-06 21:45] VITALS: PULSE 96; RESP 16; O2SAT 96
[2024-02-06 23:07] VITALS: BP 127/62; PULSE 108; RESP 20; TEMP 98.6; O2SAT 99
[2024-02-06] MEDS: SODIUM CHLOR 0.9% PF (SALINE LOCK) 10ML VIAL/SYR IV SCH (23:08)
[2024-02-06 23:29] VITALS: O2SAT 98
[2024-02-06 23:31] VITALS: BP 134/80; PULSE 107; RESP 18; TEMP 98; O2SAT 98
[2024-02-06] MEDS: MORPHINE SULFATE INJ 2 MG/ml SYRG IV PRN (23:31)
[2024-02-07] VITALS (11 sets, daily range): BP systolic 96–134; BP diastolic 34–73; PULSE 95–113; RESP 17–20; TEMP 97.9–98.6; O2SAT 93–99
[2024-02-07] MEDS: FUROSEMIDE 100 MG/10ML VIAL IV ONE (00:41)
[2024-02-07] MEDS: FUROSEMIDE 20 MG/2 ML VIAL IV SCH (06:00)
[2024-02-07] MEDS: VANCOMYCIN 1GM/200ML 200 ML IV ONE (06:00)
[2024-02-07] MEDS: HYDROcodone-ACET 5/325MG TAB PO PRN (06:02)
[2024-02-07 06:36] LABS: Alanine Aminotransferase 21 U/L (7-40); Alkaline Phosphatase 111 U/L (46-116); Anion Gap 9 (5-15); BUN/Creatinine Ratio 15.9 (10.0-20.0); Blood Urea Nitrogen 13 mg/dL (9-23); Calcium 8.4 mg/dL (8.7-10.4); Carbon Dioxide 23 mmol/L (20-30); Chloride 104 mmol/L (98-107); Glucose 97 mg/dL (74-106); Magnesium 1.8 mg/dL (1.6-2.6); Potassium 3.8 mmol/L (3.5-5.1); Sodium 136 mmol/L (136-145)
[2024-02-07 06:37] LABS: Albumin 2.4 g/dL (3.2-4.8); Aspartate Aminotransferase 46 U/L (13-40); Bilirubin, Total 6.8 mg/dL (0.2-1.0); Total Protein 5.3 g/dL (5.7-8.2)
[2024-02-07 06:53] LABS: Lactic Acid w/Reflex 2.8 mmol/L (0.4-2.0)
[2024-02-07 08:26] LABS: Basophils # (auto) 0 10 ^3/uL (0-0.2); Basophils % (auto) 0.1 % (0.0-2.0); Eosinophils # (auto) 0 10 ^3/uL (0-0.8); Eosinophils % (auto) 0.1 % (0.0-7.0); Hematocrit 29.1 % (36.0-46.0); Hemoglobin 9.8 g/dL (12.2-16.2); Lymphocytes # (auto) 0.5 10 ^3/uL (0.4-5.4); Lymphocytes % (auto) 6.1 % (10.0-50.0); Mean Corpuscular Hemoglobin 31.4 pg (28.0-32.0); Mean Corpuscular Hgb Conc. 33.7 g/dL (32.0-36.0); Mean Corpuscular Volume 93.1 fL (80.0-100.0); Monocytes # (auto) 0.6 10 ^3/uL (0-1.3); Monocytes % (auto) 7.4 % (0.0-12.0); Neutrophils # (auto) 6.5 10 ^3/uL (1.6-8.6); Neutrophils % (auto) 86.3 % (37.0-80.0); Nucleated Red Blood Cells % 0.1 %; Red Blood Cells 3.13 10^6/uL (4.0-5.20); Red Cell Distribution Width 19.4 % (11.8-14.3); White Blood Cell 7.5 10^3/uL (4.4-10.8)
[2024-02-07 09:24] LABS: INR 1.44 (0.9-1.15); Partial Thromboplastin Time 34.6 SEC (24.5-34.5); Prothrombin Time 14.9 sec (9.3-11.8)
[2024-02-07 09:27] LABS: Magnesium 1.7 mg/dL (1.6-2.6)
[2024-02-07 09:28] LABS: Phosphorus 3.1 mg/dL (2.4-5.1)
[2024-02-07 09:39] LABS: Hepatitis B Surface Antigen Negative (Negative)
[2024-02-07 09:59] LABS: Hepatitis A Ab IgM Negative
[2024-02-07 10:00] LABS: Hepatitis B Core IgM Negative; Hepatitis C Antibody Negative (Negative)
[2024-02-07] MEDS: FUROSEMIDE 20 MG/2 ML VIAL IV ONE (10:35)
[2024-02-07] MEDS: cefTRIAXone 2GM/50ML D5W 50 ML IV SCH (12:28)
[2024-02-07 12:42] LABS: Lactic Acid w/Reflex 3.3 mmol/L (0.4-2.0)
[2024-02-07 16:08] LABS: Urine Bacteria None Seen /hpf (None Seen)
[2024-02-07 16:12] LABS: Body Fluid Polymorphonuclear 22 % (0-25)
[2024-02-07 16:17] LABS: Body Fluid Red Blood Cells 2148 CUMM (0-2000); Body Fluid White Blood Cells 155 CUMM (0-200)
[2024-02-07 16:30] LABS: Urine Blood 2+ /uL (Negative); Urine Clarity Clear (Clear); Urine Color Yellow (Yellow); Urine Mucus FEW (None Seen); Urine Protein, UAD Negative (Negative); Urine Specific Gravity 1.014 (1.001-1.035); Urine Urobilinogen Normal (Negative); Urine WBC 5 /hpf (0 - 5)
[2024-02-07 16:37] LABS: Amphetamine Screen, Urine Neg (NEGATIVE)
[2024-02-07 16:38] LABS: Benzodiazephine Screen, Urine Neg (NEGATIVE)
[2024-02-07 16:39] LABS: Barbiturate Scree,Urine Neg (NEGATIVE); Cannabinoid Screen, Urine Neg (NEGATIVE); Cocaine Screen, Urine Neg (NEGATIVE); Opiate Scree,Urine Neg (NEGATIVE); Phencyclidine Screen, Urine Neg (NEGATIVE)
[2024-02-07] MEDS: FUROSEMIDE 40 MG/4 ML VIAL IV SCH ×2 (18:06→22:34)
[2024-02-07] MEDS: PANTOPRAZOLE 40 MG/10 ML VIAL INJ IV ONE (22:22)
[2024-02-07] MEDS: ALBUMIN 25% 50 ML IV ONE (22:32)
[2024-02-08] VITALS (9 sets, daily range): BP systolic 98–128; BP diastolic 34–49; PULSE 84–93; RESP 18–20; TEMP 97.8–98.5; O2SAT 94–98
[2024-02-08 01:23] LABS: Lactic Acid w/Reflex 2.8 mmol/L (0.4-2.0)
[2024-02-08 07:06] LABS: Basophils # (auto) 0 10 ^3/uL (0-0.2); Basophils % (auto) 0.1 % (0.0-2.0); Eosinophils # (auto) 0 10 ^3/uL (0-0.8); Eosinophils % (auto) 0.4 % (0.0-7.0); Hematocrit 26.2 % (36.0-46.0); Lymphocytes # (auto) 0.5 10 ^3/uL (0.4-5.4); Lymphocytes % (auto) 10.9 % (10.0-50.0); Mean Corpuscular Hemoglobin 31.7 pg (28.0-32.0); Mean Corpuscular Hgb Conc. 34.4 g/dL (32.0-36.0); Mean Corpuscular Volume 92.1 fL (80.0-100.0); Monocytes # (auto) 0.4 10 ^3/uL (0-1.3); Neutrophils # (auto) 3.6 10 ^3/uL (1.6-8.6); Neutrophils % (auto) 80.6 % (37.0-80.0); Nucleated Red Blood Cells % 0.1 %; Red Blood Cells 2.84 10^6/uL (4.0-5.20); Red Cell Distribution Width 19.1 % (11.8-14.3); White Blood Cell 4.4 10^3/uL (4.4-10.8)
[2024-02-08 07:29] LABS: Alanine Aminotransferase 19 U/L (7-40); Albumin 2.2 g/dL (3.2-4.8); Alkaline Phosphatase 93 U/L (46-116); Anion Gap 6 (5-15); Aspartate Aminotransferase 36 U/L (13-40); BUN/Creatinine Ratio 17.8 (10.0-20.0); Blood Urea Nitrogen 16 mg/dL (9-23); Calcium 8.6 mg/dL (8.7-10.4); Carbon Dioxide 25 mmol/L (20-30); Chloride 103 mmol/L (98-107); Glucose 99 mg/dL (74-106); Potassium 3.5 mmol/L (3.5-5.1); Sodium 134 mmol/L (136-145)
[2024-02-08 07:30] LABS: Bilirubin, Total 4.8 mg/dL (0.2-1.0); Total Protein 4.7 g/dL (5.7-8.2)
[2024-02-08 08:04] LABS: Platelet Estimate Decreased
[2024-02-08 08:05] LABS: Stomatocytes Few
[2024-02-08 08:08] LABS: Platelet Estimate Decreased
[2024-02-08] MEDS: CYANOCOBALAMIN (B-12) 1000 MCG/1 ML VIAL IM ONE (08:44)
[2024-02-08] MEDS: PANTOPRAZOLE 40 MG/10 ML VIAL INJ IV SCH (08:44)
[2024-02-08] MEDS: POTASSIUM EFFERVESENT TAB 25 MEQ PO ONE ×2 (11:31→18:54)
[2024-02-08] MEDS ORDERED: POTA-180 PO (12:42)
[2024-02-08] MEDS ORDERED: ERGO1CAP23 PO (12:42)
[2024-02-08] MEDS ORDERED: BUME1TAB3 PO (12:42)
[2024-02-08] MEDS ORDERED: VANCOMYCIN PER PHARMACY 0 MG IV SCH (15:30)
[2024-02-08] MEDS: FUROSEMIDE INJECTION 100 MG in SODIUM CHL 0.9% 100 ML IV SCH (16:03)
[2024-02-08] MEDS ORDERED: VANCOMYCIN 1GM/200ML 200 ML IV SCH (17:00)
[2024-02-08] MEDS: VANCOMYCIN 1GM/200ML 200 ML IV SCH (20:24)
[2024-02-09] VITALS (13 sets, daily range): BP systolic 104–116; BP diastolic 42–53; PULSE 78–91; RESP 18–20; TEMP 97.5–98.6; O2SAT 94–99
[2024-02-09 07:41] LABS: Basophils # (auto) 0 10 ^3/uL (0-0.2); Basophils % (auto) 0.1 % (0.0-2.0); Eosinophils # (auto) 0.1 10 ^3/uL (0-0.8); Eosinophils % (auto) 1.4 % (0.0-7.0); Hematocrit 27.4 % (36.0-46.0); Hemoglobin 9.5 g/dL (12.2-16.2); Lymphocytes # (auto) 0.5 10 ^3/uL (0.4-5.4); Lymphocytes % (auto) 12.6 % (10.0-50.0); Mean Corpuscular Hemoglobin 32.2 pg (28.0-32.0); Mean Corpuscular Hgb Conc. 34.7 g/dL (32.0-36.0); Mean Corpuscular Volume 92.8 fL (80.0-100.0); Monocytes # (auto) 0.4 10 ^3/uL (0-1.3); Neutrophils # (auto) 3.3 10 ^3/uL (1.6-8.6); Neutrophils % (auto) 76.9 % (37.0-80.0); Red Blood Cells 2.95 10^6/uL (4.0-5.20); Red Cell Distribution Width 19.4 % (11.8-14.3); White Blood Cell 4.3 10^3/uL (4.4-10.8)
[2024-02-09 07:46] LABS: Alanine Aminotransferase 23 U/L (7-40); Albumin 2.1 g/dL (3.2-4.8); Alkaline Phosphatase 123 U/L (46-116); Anion Gap 8 (5-15); Aspartate Aminotransferase 58 U/L (13-40); BUN/Creatinine Ratio 17.1 (10.0-20.0); Blood Urea Nitrogen 14 mg/dL (9-23); Calcium 8.1 mg/dL (8.7-10.4); Carbon Dioxide 26 mmol/L (20-30); Chloride 101 mmol/L (98-107); Glucose 88 mg/dL (74-106); Potassium 3.5 mmol/L (3.5-5.1); Sodium 135 mmol/L (136-145)
[2024-02-09 07:47] LABS: Bilirubin, Total 3.6 mg/dL (0.2-1.0); INR 1.33 (0.9-1.15); Partial Thromboplastin Time 34.8 SEC (24.5-34.5); Prothrombin Time 13.8 sec (9.3-11.8); Total Protein 4.9 g/dL (5.7-8.2)
[2024-02-09] MEDS ORDERED: POTASSIUM CHL 20MEQ/100ML 100 ML IV SCH (08:30)
[2024-02-09] MEDS: POTASSIUM EFFERVESENT TAB 25 MEQ PO ONE (11:32)
[2024-02-09] MEDS: SPIRONOLACTONE 25 MG TAB PO ONE (14:30)
[2024-02-09] MEDS: ALBUMIN 25% 100 ML IV SCH (17:14)
[2024-02-09] MEDS: FUROSEMIDE 40 MG/4 ML VIAL IV SCH (21:57)
[2024-02-10] VITALS (9 sets, daily range): BP systolic 109–127; BP diastolic 49–82; PULSE 76–96; RESP 16–20; TEMP 97.7–98.7; O2SAT 95–99
[2024-02-10 07:06] LABS: Basophils # (auto) 0 10 ^3/uL (0-0.2); Basophils % (auto) 0.1 % (0.0-2.0); Eosinophils # (auto) 0.1 10 ^3/uL (0-0.8); Eosinophils % (auto) 3.2 % (0.0-7.0); Hemoglobin 8.8 g/dL (12.2-16.2); Lymphocytes # (auto) 0.4 10 ^3/uL (0.4-5.4); Lymphocytes % (auto) 14.5 % (10.0-50.0); Mean Corpuscular Hemoglobin 31.7 pg (28.0-32.0); Mean Corpuscular Hgb Conc. 33.8 g/dL (32.0-36.0); Mean Corpuscular Volume 93.9 fL (80.0-100.0); Monocytes # (auto) 0.4 10 ^3/uL (0-1.3); Neutrophils # (auto) 1.8 10 ^3/uL (1.6-8.6); Neutrophils % (auto) 68.2 % (37.0-80.0); Red Blood Cells 2.77 10^6/uL (4.0-5.20); Red Cell Distribution Width 19.2 % (11.8-14.3); White Blood Cell 2.6 10^3/uL (4.4-10.8)
[2024-02-10 07:23] LABS: Anion Gap 6 (5-15); Carbon Dioxide 28 mmol/L (20-30); Chloride 105 mmol/L (98-107); Potassium 3.8 mmol/L (3.5-5.1); Sodium 139 mmol/L (136-145)
[2024-02-10 07:24] LABS: Calcium 8.2 mg/dL (8.7-10.4)
[2024-02-10 07:29] LABS: BUN/Creatinine Ratio 25.3 (10.0-20.0); Blood Urea Nitrogen 20 mg/dL (9-23); Glucose 90 mg/dL (74-106)
[2024-02-10] MEDS: SPIRONOLACTONE 25 MG TAB PO SCH (09:58)
[2024-02-10] MEDS ORDERED: SPIRONOLACTONE 25 MG TAB PO SCH (10:00)
[2024-02-10] MEDS: VANCOMYCIN 1GM/200ML 200 ML IV ONE (11:44)
[2024-02-12 06:42] LABS: Protein, Body Fluid 1.1 g/dL (.)
== END 2024-02-10 18:20 | disposition home health service (06) | DRG 871 ==
LOC: ER 15:51 → OVERFLOW 18:05 → CENTRAL 23:01 → EAST 02-10 11:23
PROVIDERS: ADMIT Internal Medicine; ATTEND Emergency Medicine
PROC: 0W9G3ZZ Drainage of Peritoneal Cavity, Percutaneous Approach (ICD-10-PCS; principal; 2024-02-07)
DX: A41.9 Sepsis, unspecified organism (principal); I50.31 Acute diastolic (congestive) heart failure; R18.8 Other ascites; L03.115 Cellulitis of right lower limb; D61.818 Other pancytopenia; Z68.41 Body mass index [BMI] 40.0-44.9, adult; K75.4 Autoimmune hepatitis; K74.60 Unspecified cirrhosis of liver; K80.20 Calculus of gallbladder without cholecystitis without obstruction; E87.70 Fluid overload, unspecified; K21.9 Gastro-esophageal reflux disease without esophagitis; E66.01 Morbid (severe) obesity due to excess calories; Z96.642 Presence of left artificial hip joint; K76.0 Fatty (change of) liver, not elsewhere classified; Z98.51 Tubal ligation status; Z79.899 Other long term (current) drug therapy
CPT/HCPCS: 36415; 49083; 71045; 74176; 76705; 76942; 80048; 80053; 80061; 80074; 80202; 80307; 81001; 82140; 82248; 82306; 82607; 83010; 83036; 83605; 83615; 83690; 83735; 83880; 83986; 84100; 84443; 84484; 85025; 85610; 85652; 85730; 86141; 86880; 87081; 87205; 89051; 93970; 93971; 97110; 97116; 97163; 97530; G0378; J2470; J2543; P9047

== ENCOUNTER → 2024-04-07 | Outpatient (CLI) | payer MEDICARE, MEDICAID ==
[~2024-04-07] MED LIST changes: +BUME1TAB3 PO; +ERGO1CAP23 PO; -FURO1TAB31 PO; +POTA-180 PO; -POTA-36 PO; -TRAM50TA2 PO
[2024-04-07 12:30] LABS: Basophils # (auto) 0 10 ^3/uL (0-0.2); Eosinophils # (auto) 0.1 10 ^3/uL (0-0.8); Eosinophils % (auto) 2.3 % (0.0-7.0); Hematocrit 29.7 % (36.0-46.0); Hemoglobin 10.2 g/dL (12.2-16.2); Lymphocytes # (auto) 0.5 10 ^3/uL (0.4-5.4); Lymphocytes % (auto) 14.4 % (10.0-50.0); Mean Corpuscular Hgb Conc. 34.4 g/dL (32.0-36.0); Mean Corpuscular Volume 93.2 fL (80.0-100.0); Monocytes # (auto) 0.5 10 ^3/uL (0-1.3); Monocytes % (auto) 13.8 % (0.0-12.0); Neutrophils # (auto) 2.6 10 ^3/uL (1.6-8.6); Neutrophils % (auto) 68.5 % (37.0-80.0); Nucleated Red Blood Cells % 0.1 %; Platelet Count (auto) 124 10^3/uL (140-450); Red Blood Cells 3.19 10^6/uL (4.0-5.20); Red Cell Distribution Width 15.6 % (11.8-14.3); White Blood Cell 3.8 10^3/uL (4.4-10.8)
[2024-04-07 12:54] LABS: Alanine Aminotransferase 15 U/L (7-40); Albumin 2.8 g/dL (3.2-4.8); Alkaline Phosphatase 126 U/L (46-116); Anion Gap 8 (5-15); Aspartate Aminotransferase 33 U/L (13-40); BUN/Creatinine Ratio 18.1 (10.0-20.0); Bilirubin, Total 5.2 mg/dL (0.2-1.0); Blood Urea Nitrogen 17 mg/dL (9-23); Calcium 9.3 mg/dL (8.7-10.4); Carbon Dioxide 24 mmol/L (20-30); Chloride 107 mmol/L (98-107); Glucose 98 mg/dL (74-106); Sodium 139 mmol/L (136-145); Total Protein 6.5 g/dL (5.7-8.2)
== END | disposition home or self-care (01) ==
LOC: LAB 12:09
PROVIDERS: ATTEND Internal Medicine
DX: I89.0 Lymphedema, not elsewhere classified (principal); K74.60 Unspecified cirrhosis of liver
CPT/HCPCS: 36415; 80053; 85025

== ENCOUNTER 2024-05-07 01:03 | Inpatient (IN) | payer MEDICARE, MEDICAID ==
[~2024-05-07] VITALS: Ht 175.3 cm; Wt 87.5 kg
[2024-05-07 01:39] VITALS: PULSE 78; RESP 20; O2SAT 99
[2024-05-07 01:54] LABS: Basophils # (auto) 0 10 ^3/uL (0-0.2); Basophils % (auto) 0.6 % (0.0-2.0); Eosinophils # (auto) 0.1 10 ^3/uL (0-0.8); Eosinophils % (auto) 2.6 % (0.0-7.0); Hematocrit 28.3 % (36.0-46.0); Hemoglobin 9.5 g/dL (12.2-16.2); Lymphocytes # (auto) 0.6 10 ^3/uL (0.4-5.4); Lymphocytes % (auto) 19.8 % (10.0-50.0); Mean Corpuscular Hemoglobin 30.9 pg (28.0-32.0); Mean Corpuscular Hgb Conc. 33.6 g/dL (32.0-36.0); Monocytes # (auto) 0.4 10 ^3/uL (0-1.3); Monocytes % (auto) 14.3 % (0.0-12.0); Neutrophils # (auto) 1.8 10 ^3/uL (1.6-8.6); Neutrophils % (auto) 62.7 % (37.0-80.0); Nucleated Red Blood Cells % 0.2 %; Platelet Count (auto) 123 10^3/uL (140-450); Red Blood Cells 3.08 10^6/uL (4.0-5.20); Red Cell Distribution Width 14.3 % (11.8-14.3); White Blood Cell 2.9 10^3/uL (4.4-10.8)
[2024-05-07 02:18] LABS: Alanine Aminotransferase 32 U/L (7-40); Albumin 2.8 g/dL (3.2-4.8); Alkaline Phosphatase 137 U/L (46-116); Anion Gap 6 (5-15); Aspartate Aminotransferase 51 U/L (13-40); BUN/Creatinine Ratio 21.6 (10.0-20.0); Blood Alcohol < 3.0 mg/dL (<10); Blood Urea Nitrogen 22 mg/dL (9-23); Calcium 8.9 mg/dL (8.7-10.4); Carbon Dioxide 22 mmol/L (20-31); Chloride 109 mmol/L (98-107); Glucose 87 mg/dL (74-106); Potassium 4.1 mmol/L (3.5-5.1); Sodium 137 mmol/L (136-145)
[2024-05-07 02:19] LABS: Bilirubin, Total 4.4 mg/dL (0.2-1.0); Total Protein 6.2 g/dL (5.7-8.2)
[2024-05-07 02:27] LABS: INR 1.36 (0.9-1.15); Partial Thromboplastin Time 31.6 SEC (24.5-34.5); Prothrombin Time 14.1 sec (9.3-11.8)
[2024-05-07] MEDS ORDERED: MORPHINE SULFATE INJ 2 MG/ml SYRG IV PRN (05:15)
[2024-05-07] MEDS ORDERED: NITROGLYCERIN 0.4 MG SL TAB SL PRN (05:15)
[2024-05-07] MEDS ORDERED: ONDANSETRON HCL 4 MG/2 ML VIAL IV PRN (05:15)
[2024-05-07] MEDS ORDERED: ACETAMINOPHEN 325 MG TAB PO PRN (05:15)
[2024-05-07] MEDS: SODIUM CHLOR 0.9% PF (SALINE LOCK) 10ML VIAL/SYR IV SCH (05:43)
[2024-05-07] MEDS ORDERED: HYDROcodone-ACET 5/325MG TAB PO PRN (05:45)
[2024-05-07 05:49] LABS: Urine Bacteria FEW /hpf (None Seen); Urine Blood Negative /uL (Negative); Urine Clarity Clear (Clear); Urine Color Yellow (Yellow); Urine Protein, UAD Negative (Negative); Urine Specific Gravity 1.017 (1.001-1.035); Urine Urobilinogen 8 mg/dL (Negative); Urine WBC 8 /hpf (0 - 5); Urine pH 5.5 (5.0-9.0)
[2024-05-07] MEDS ORDERED: ERGOCALCIFEROL 50,000 UNIT(1.25MG) CAP PO SCH (06:00)
[2024-05-07] MEDS: POTASSIUM CHL 20 Meq TABLET PO SCH (06:00)
[2024-05-07 06:04] LABS: Amphetamine Screen, Urine Neg (NEGATIVE)
[2024-05-07 06:05] LABS: Barbiturate Scree,Urine Neg (NEGATIVE); Benzodiazephine Screen, Urine Neg (NEGATIVE); Cannabinoid Screen, Urine Neg (NEGATIVE); Cocaine Screen, Urine Neg (NEGATIVE); Opiate Scree,Urine Neg (NEGATIVE); Phencyclidine Screen, Urine Neg (NEGATIVE)
[2024-05-07 07:42] LABS: Basophils # (auto) 0 10 ^3/uL (0-0.2); Basophils % (auto) 0.7 % (0.0-2.0); Eosinophils # (auto) 0 10 ^3/uL (0-0.8); Eosinophils % (auto) 1.2 % (0.0-7.0); Hematocrit 30.8 % (36.0-46.0); Hemoglobin 10.1 g/dL (12.2-16.2); Lymphocytes # (auto) 0.4 10 ^3/uL (0.4-5.4); Mean Corpuscular Hemoglobin 30.5 pg (28.0-32.0); Mean Corpuscular Hgb Conc. 32.8 g/dL (32.0-36.0); Mean Corpuscular Volume 92.8 fL (80.0-100.0); Monocytes # (auto) 0.4 10 ^3/uL (0-1.3); Monocytes % (auto) 12.9 % (0.0-12.0); Neutrophils # (auto) 1.9 10 ^3/uL (1.6-8.6); Neutrophils % (auto) 70.2 % (37.0-80.0); Nucleated Red Blood Cells % 0.4 %; Platelet Count (auto) 70 10^3/uL (140-450); Red Blood Cells 3.32 10^6/uL (4.0-5.20); Red Cell Distribution Width 14.4 % (11.8-14.3); White Blood Cell 2.7 10^3/uL (4.4-10.8)
[2024-05-07 07:49] LABS: Alanine Aminotransferase 33 U/L (7-40); Albumin 2.9 g/dL (3.2-4.8); Alkaline Phosphatase 128 U/L (46-116); Anion Gap 7 (5-15); Aspartate Aminotransferase 53 U/L (13-40); BUN/Creatinine Ratio 18.7 (10.0-20.0); Bilirubin, Total 4.9 mg/dL (0.2-1.0); Blood Urea Nitrogen 17 mg/dL (9-23); Calcium 9.1 mg/dL (8.7-10.4); Carbon Dioxide 20 mmol/L (20-31); Chloride 110 mmol/L (98-107); Glucose 83 mg/dL (74-106); Potassium 4.3 mmol/L (3.5-5.1); Sodium 137 mmol/L (136-145); Total Protein 6.5 g/dL (5.7-8.2)
[2024-05-07 07:55] VITALS: PULSE 78; RESP 14; O2SAT 100
[2024-05-07] MEDS ORDERED: BUMETANIDE 1 MG TAB PO SCH (10:00)
[2024-05-07] MEDS: FERROUS SULFATE 325mg EC TAB PO SCH (10:20)
[2024-05-07] MEDS: PANTOPRAZOLE 40 MG TAB PO SCH (10:21)
[2024-05-07] MEDS: LACTULOSE 20Gm/30ML SOLN PO ONE (10:26)
[2024-05-07] MEDS ORDERED: LACTULOSE 20Gm/30ML SOLN PO PRN ×2 (11:15→14:15)
[2024-05-07] MEDS: SPIRONOLACTONE 25 MG TAB PO ONE (11:47)
[2024-05-07] MEDS: FUROSEMIDE 20 MG TAB PO ONE (11:47)
[2024-05-07] MEDS: LACTULOSE 20Gm/30ML SOLN PO SCH (14:08)
[2024-05-07] MEDS: cefTRIAXone 1GM/50ML D5W 50 ML IV SCH (14:44)
[2024-05-07] MEDS ORDERED: BUMETANIDE 2.5mg/10ml (0.25 mg/ml) INJ IV SCH (18:00)
[2024-05-07 19:40] VITALS: PULSE 86; RESP 14; O2SAT 96
[2024-05-08 05:17] LABS: Basophils # (auto) 0 10 ^3/uL (0-0.2); Basophils % (auto) 0.3 % (0.0-2.0); Eosinophils # (auto) 0.1 10 ^3/uL (0-0.8); Eosinophils % (auto) 2.5 % (0.0-7.0); Hematocrit 27.7 % (36.0-46.0); Hemoglobin 9.3 g/dL (12.2-16.2); Lymphocytes # (auto) 0.5 10 ^3/uL (0.4-5.4); Lymphocytes % (auto) 19.7 % (10.0-50.0); Mean Corpuscular Hemoglobin 30.9 pg (28.0-32.0); Mean Corpuscular Hgb Conc. 33.8 g/dL (32.0-36.0); Mean Corpuscular Volume 91.6 fL (80.0-100.0); Monocytes # (auto) 0.4 10 ^3/uL (0-1.3); Monocytes % (auto) 17.3 % (0.0-12.0); Neutrophils # (auto) 1.5 10 ^3/uL (1.6-8.6); Neutrophils % (auto) 60.2 % (37.0-80.0); Nucleated Red Blood Cells % 0.1 %; Platelet Count (auto) 113 10^3/uL (140-450); Red Blood Cells 3.02 10^6/uL (4.0-5.20); Red Cell Distribution Width 14.2 % (11.8-14.3); White Blood Cell 2.5 10^3/uL (4.4-10.8)
[2024-05-08 05:34] LABS: Alanine Aminotransferase 33 U/L (7-40); Alkaline Phosphatase 101 U/L (46-116); Anion Gap 6 (5-15); BUN/Creatinine Ratio 18.1 (10.0-20.0); Blood Urea Nitrogen 17 mg/dL (9-23); Calcium 9.2 mg/dL (8.7-10.4); Carbon Dioxide 22 mmol/L (20-31); Chloride 110 mmol/L (98-107); Glucose 89 mg/dL (74-106); Potassium 4.4 mmol/L (3.5-5.1); Sodium 138 mmol/L (136-145)
[2024-05-08 05:35] LABS: Albumin 2.7 g/dL (3.2-4.8); Aspartate Aminotransferase 45 U/L (13-40)
[2024-05-08 05:36] LABS: Bilirubin, Total 5.1 mg/dL (0.2-1.0); Total Protein 6.3 g/dL (5.7-8.2)
[2024-05-08 08:40] VITALS: O2SAT 100
[2024-05-08] MEDS: FUROSEMIDE 20 MG TAB PO SCH (11:11)
[2024-05-08] MEDS: rifAXIMin 550 MG TAB PO SCH (11:11)
[2024-05-08] MEDS: SPIRONOLACTONE 25 MG TAB PO SCH (11:12)
[2024-05-08] MEDS: LACTULOSE 20Gm/30ML SOLN PO SCH (12:29)
[2024-05-08 16:04] VITALS: BP 113/47; PULSE 78; RESP 16; TEMP 97.6; O2SAT 100
[2024-05-08 16:44] VITALS: BP 113/47; PULSE 78; RESP 16; TEMP 97.6; O2SAT 100
[2024-05-08 21:00] VITALS: BP 119/50; PULSE 81; RESP 22; TEMP 98; O2SAT 98
[2024-05-09 01:00] VITALS: BP 116/53; PULSE 81; RESP 22; TEMP 98.1; O2SAT 99
[2024-05-09 05:00] VITALS: BP 139/62; PULSE 82; RESP 22; TEMP 98; O2SAT 100
[2024-05-09] MEDS ORDERED: ENOXAPARIN SOD 40 MG/0.4 ML SYRINGE SC ONE (06:30)
[2024-05-09 07:20] LABS: Basophils # (auto) 0 10 ^3/uL (0-0.2); Basophils % (auto) 0.2 % (0.0-2.0); Eosinophils # (auto) 0.1 10 ^3/uL (0-0.8); Eosinophils % (auto) 1.9 % (0.0-7.0); Hematocrit 28.4 % (36.0-46.0); Hemoglobin 9.5 g/dL (12.2-16.2); Lymphocytes # (auto) 0.4 10 ^3/uL (0.4-5.4); Lymphocytes % (auto) 15.9 % (10.0-50.0); Mean Corpuscular Hemoglobin 30.8 pg (28.0-32.0); Mean Corpuscular Hgb Conc. 33.4 g/dL (32.0-36.0); Mean Corpuscular Volume 92.1 fL (80.0-100.0); Monocytes # (auto) 0.4 10 ^3/uL (0-1.3); Monocytes % (auto) 15.1 % (0.0-12.0); Neutrophils # (auto) 1.8 10 ^3/uL (1.6-8.6); Neutrophils % (auto) 66.9 % (37.0-80.0); Nucleated Red Blood Cells % 0.1 %; Platelet Count (auto) 106 10^3/uL (140-450); Red Blood Cells 3.09 10^6/uL (4.0-5.20); Red Cell Distribution Width 14.4 % (11.8-14.3); White Blood Cell 2.7 10^3/uL (4.4-10.8)
[2024-05-09 07:41] LABS: Chloride 110 mmol/L (98-107); Potassium 4.4 mmol/L (3.5-5.1); Sodium 137 mmol/L (136-145)
[2024-05-09 07:42] LABS: Anion Gap 6 (5-15); Carbon Dioxide 21 mmol/L (20-31)
[2024-05-09 07:47] LABS: Glucose 96 mg/dL (74-106)
[2024-05-09 07:48] LABS: BUN/Creatinine Ratio 20.4 (10.0-20.0); Blood Urea Nitrogen 19 mg/dL (9-23)
[2024-05-09 09:00] VITALS: BP 108/57; PULSE 75; RESP 18; TEMP 98; O2SAT 99
[2024-05-09 13:00] VITALS: BP 111/61; PULSE 73; RESP 16; TEMP 98.1; O2SAT 100
[2024-05-09] MEDS ORDERED: LACT10SO3 PO (14:38)
[2024-05-09] MEDS ORDERED: FURO20TA4 PO (14:38)
[2024-05-09] MEDS ORDERED: SPIR25TA PO (14:38)
[2024-05-09] MEDS ORDERED: RIFA550T PO (14:38)
[2024-05-09 15:10] VITALS: BP 108/57
[2024-05-09 16:24] VITALS: BP 117/80; PULSE 73; RESP 20; TEMP 97.9; O2SAT 100
== END 2024-05-09 17:35 | disposition home or self-care (01) | DRG 441 ==
LOC: EDBD 01:03 → ER 01:03 → OVERFLOW 05:10 → ER 05:10 → WEST WING 05-08 15:45
PROVIDERS: ADMIT Hospitalist; ATTEND Hospitalist
DX: K76.82 Hepatic encephalopathy (principal); G92.8 Other toxic encephalopathy; I50.33 Acute on chronic diastolic (congestive) heart failure; D61.818 Other pancytopenia; D68.4 Acquired coagulation factor deficiency; E72.20 Disorder of urea cycle metabolism, unspecified; R18.8 Other ascites; K74.69 Other cirrhosis of liver; K72.90 Hepatic failure, unspecified without coma; K75.81 Nonalcoholic steatohepatitis (NASH); K21.9 Gastro-esophageal reflux disease without esophagitis; D69.59 Other secondary thrombocytopenia; D53.9 Nutritional anemia, unspecified; E55.9 Vitamin D deficiency, unspecified; N18.2 Chronic kidney disease, stage 2 (mild); R74.01 Elevation of levels of liver transaminase levels; Z79.899 Other long term (current) drug therapy
CPT/HCPCS: 36415; 70450; 71045; 76705; 80048; 80053; 80307; 80320; 81001; 82105; 82140; 82248; 82306; 82607; 83516; 83605; 83735; 83880; 84443; 84484; 85025; 85610; 85730; 86038; 86225; 86235; 93005; 97110; 97116; 97163; 97530; 99291; G0378

== ENCOUNTER → 2024-07-18 | Outpatient (CLI) | payer MEDICARE, MEDICAID ==
[~2024-07-18] MED LIST changes: +FURO20TA4 PO; +LACT10SO3 PO; +RIFA550T PO; +SPIR25TA PO
[2024-07-18 12:27] LABS: Basophils # (auto) 0 10 ^3/uL (0-0.2); Basophils % (auto) 0.2 % (0.0-2.0); Eosinophils # (auto) 0 10 ^3/uL (0-0.8); Eosinophils % (auto) 0.9 % (0.0-7.0); Hematocrit 39.4 % (36.0-46.0); Hemoglobin 13.3 g/dL (12.2-16.2); Lymphocytes # (auto) 0.5 10 ^3/uL (0.4-5.4); Lymphocytes % (auto) 9.5 % (10.0-50.0); Mean Corpuscular Hemoglobin 31.8 pg (28.0-32.0); Mean Corpuscular Hgb Conc. 33.8 g/dL (32.0-36.0); Mean Corpuscular Volume 94.1 fL (80.0-100.0); Monocytes # (auto) 0.7 10 ^3/uL (0-1.3); Monocytes % (auto) 14.1 % (0.0-12.0); Neutrophils # (auto) 3.8 10 ^3/uL (1.6-8.6); Neutrophils % (auto) 75.3 % (37.0-80.0); Platelet Count (auto) 105 10^3/uL (140-450); Red Blood Cells 4.18 10^6/uL (4.0-5.20); Red Cell Distribution Width 15.7 % (11.8-14.3); White Blood Cell 5.1 10^3/uL (4.4-10.8)
[2024-07-18 12:36] LABS: INR 1.4 (0.9-1.15); Partial Thromboplastin Time 33.3 SEC (24.5-34.5); Prothrombin Time 14.5 sec (9.3-11.8)
[2024-07-18 13:17] LABS: Alanine Aminotransferase 35 U/L (7-40); Alkaline Phosphatase 111 U/L (46-116); Anion Gap 5 (5-15); Blood Urea Nitrogen 19 mg/dL (9-23); Calcium 9.7 mg/dL (8.7-10.4); Carbon Dioxide 26 mmol/L (20-31); Chloride 103 mmol/L (98-107); Total Protein 6.8 g/dL (5.7-8.2)
[2024-07-18 13:24] LABS: Albumin 3.1 g/dL (3.2-4.8); Aspartate Aminotransferase 47 U/L (13-40); Glucose 116 mg/dL (74-106); Sodium 134 mmol/L (136-145)
== END | disposition home or self-care (01) ==
LOC: LAB 12:01
PROVIDERS: ATTEND Internal Medicine
DX: K74.69 Other cirrhosis of liver (principal)
CPT/HCPCS: 36415; 80053; 85025; 85610; 85730

== ENCOUNTER 2024-10-06 12:45 | Inpatient (IN) | payer MEDICARE, MEDICAID ==
[~2024-10-06] VITALS: Ht 170.2 cm; Wt 99.5 kg
[~2024-10-06 12:45] MED LIST changes: +CIPR250T3 PO; -ERGO1CAP23 PO; -FERR-7 PO; -HYDR-4902 PO; +LACT10SO60 PO; +SPIR100T4 PO
--- NOTE | 2024-10-06 13:00 | ED.PDOC ---
Musculoskeletal HPI Comments 69 year old female brought in by EMS presents to the ED with a chief complaint of bilateral leg swelling onset 2 weeks. Per EMS, patient's family noticed bilateral leg swelling for the past 2 weeks, worsen the past 3 days. Patient is usually able to ambulate on her own, has not been able to due to swelling. She noticed she was confused yesterday, improved today. PMHx CHF,GERD. Denies chest pain, shortness of breath, nausea, vomiting, diarrhea, headache. No other symptoms or modifying factors present at this time. Time Seen by MD: 12:38 Primary Care Provider: Galina Reviewed Notes: Medications, Allergies Allergies: Coded Allergies: NO KNOWN ALLERGIES (Unverified , 12/04/23) Home Meds Active Scripts Ciprofloxacin Hcl (Ciprofloxacin Hcl) 250 Mg Tab, 2 TAB PO BID for 7 Days, #28 TAB Prov:SANIA QUICK MD 09/21/24 Rifaximin (Xifaxan) 550 Mg Tab, 550 MG PO BID for 30 Days, #60 TAB Prov:[facility] 05/09/24 Spironolactone (Aldactone) 25 Mg Tab, 50 MG PO DAILY for 30 Days, #60 TAB Prov:[facility] 05/09/24 Lactulose (Lactulose) 10 Gm/15 Ml Katelynn, 30 ML PO Q6HR for 30 Days, #1 BOTTLE Prov:[facility] 05/09/24 Furosemide (Furosemide) 20 Mg Tab, 20 MG PO DAILY for 30 Days, #30 TAB Prov:[facility] 05/09/24 Nystatin (Mycostatin) 1 Applic Ap, 1 APPLIC TOP BID for 5 Days, #1 APPLIC Prov:RAN MARIE [facility]IDENT 12/19/23 Metronidazole (Metronidazole) 500 Mg Tab, 500 MG PO Q8HR for 3 Days, #9 TAB Prov:[facility] 12/19/23 Cefpodoxime Proxetil (Cefpodoxime Proxetil) 200 Mg Tab, 200 MG PO BID for 3 Days, #6 TAB Prov:RAN MARIE [facility] 12/19/23 Reported Medications Bumetanide (Bumetanide) 1 Mg Tab, 1 MG PO BID, MG 02/08/24 Potassium Chloride (Potassium Chloride ER) 20 Meq Tab, 20 MEQ PO DAILY WITH FOOD, TAB 02/08/24 Information Source: Patient, Emergency Med Personnel Mode of Arrival: EMS Location: Bilateral Extremity Location: Leg Timing: Weeks Prehospital treatment: None Severity: Moderate Bear Weight: Limited Pain: Moderate Mechanism: Unknown Circumstances: Unknown Onset of Symptoms: Spontaneous Symptoms: Swelling, Pain DVT Risk Factors: CHF Associated signs and symptoms: Swelling Past Medical History PAST MEDICAL HISTORY: Anemia, CHF, Gallstones, GERD, Liver Surgical History: Tubal Ligation CONTROL SYSTEMS ENGINEER History: No Pertinent CONTROL SYSTEMS ENGINEER History Family History Family History: Reviewed,noncontributory to illness, No family hx of Cancer, No family hx of DM, No family hx of Heart pedro, No family hx of HTN, No family hx ofKidney pedro, No family hx of Liver pedro, No family hx of Lung pedro, No family hx of Stroke Social History Smoker: Non-Smoker Alcohol: Denies ETOH Use Drugs: Denies Drug Use Lives In: Home Constitutional: denies: chills, diaphoresis, fatigue, fever, malaise, sweats, weakness, others EENTM: denies: blurred vision, double vision, ear bleeding, ear discharge, ear drainage, ear pain, ear ringing, eye pain, eye redness, hearing loss, mouth pain, mouth swelling, nasal discharge, nose bleeding, nose congestion, nose pain, photophobia, tearing, throat pain, throat swelling, voice changes, others Respiratory: denies: cough, hemoptysis, orthopnea, SOB at rest, shortness of breath, SOB with excertion, stridor, wheezing, others Cardiovascular: denies: chest pain, dizzy spells, diaphoresis, Dyspnea on exertion, edema, irregular heart beat, left arm pain, lightheadedness, palpitations, PND, syncope, others Gastrointestinal: denies: abdomen distended, abdominal pain, blood streaked bowels, constipated, diarrhea, dysphagia, difficulty swallowing, hematemesis, melena, nausea, poor appetite, poor fluid intake, rectal bleeding, rectal pain, vomiting, others Genitourinary: denies: abnormal vagina bleeding, burning, dyspareunia, dysuria, flank pain, frequency, hematuria, incontinence, pain, , vagina discharge, urgency, others Neurological: denies: dizziness, fainting, headache, left sided numbness, left sided weakness, numbness, paresthesia, pre-existing deficit, right sided numbness, right sided weakness, seizure, speech problems, tingling, tremors, weakness, others Musculoskeletal: reports: others (bilateral leg swelling); denies: back pain, gout, joint pain, joint swelling, muscle pain, muscle stiffness, neck pain Integumetry: denies: bruises, change in color, change in hair/nails, dryness, laceration, lesions, lumps, rash, wounds, others Allergic/Immunocompromised: denies: Difficulty Healing, Frequent Infections, Hives, Itching, others Hematologic/Lymphatic: denies: anemia, blood clots, easy bleeding, easy bruising, swollen glands, others Endocrine: denies: excessive hunger, excessive sweating, excessive thirst, excessive urination, flushing, intolerance to cold, intolerance to heat, unexplained weight gain, unexplained weight loss, others Psychiatric: denies: anxiety, bipolar disorder, depression, hopeless, panic disorder, schizophrenia, sleepless, suicidal, others All Other Systems: Reviewed and Negative Physical Exam General Appearance: Moderate Distress, Normal HEENT: Normal ENT Inspection, Pharynx Normal, TMs Normal Neck: Full Range of Motion, Non-Tender, Normal, Normal Inspection Respiratory: Chest Non-Tender, Lungs Clear, No Accessory Muscle Use, No Respi ratory Distress, Normal Breath Sounds Cardiovascular: No Edema, No JVD, No Murmur, No Gallop, Normal Peripheral Pulses, Regular Rate/Rhythm Breast Exam: Deferred Gastrointestinal: No Organomegaly, Non Tender, No Pulsatile Mass, Normal Bowel Sounds, Soft Genitalia: Deferred Pelvic: Deferred Rectal: Deferred Extremities: No calf tenderness, Normal capillary refill, Non-tender, Pedal edema, Swelling (Bilateral lower extremity) Musculoskeletal : Apperance: Normal Neurologic: Alert, laminating press operator II-XII nml as Tested, No Motor Deficits, Normal Affect, Normal Mood, No Sensory Deficits Cerebellar Function: NOT DONE Reflexes: NOT DONE Skin: Dry, Normal Color, Warm Peripheral Pulses: 3+ Radial (R), 3+ Radial (L) Lymphatic: No Adenopathy Was a procedure done? Was a procedure done?: No Differential Diagnosis EXT Differential Diagnosis: Sprain, Strain X-Ray, Labs, Meds, VS Vital Signs Date Time Temp Pulse Resp B/P (MAP) Pulse Ox O2 Delivery O2 Flow Rate FiO2 10/06/24 16:20 81 17 124/37 (66) 100 10/06/24 15:58 124/37 10/06/24 13:15 98.1 82 17 111/63 (79) 93 98.1 10/06/24 13:15 82 17 93 Room Air* 0 21 10/06/24 13:04 98.2 82 18 114/53 (73) 97 98.2 Lab Test 10/06/24 15:46 10/06/24 13:30 Range/Units Urine Color Yellow Yellow Urine Clarity Clear Clear Urine pH 5.0 5.0-9.0 Urine Specific Brogan 1.012 1.001-1.035 Urine Protein Negative Negative Urine Ketones Negative Negative Urine Blood Negative Negative /uL Urine Nitrite Negative Negative Urine Bilirubin Negative Negative Urine Urobilinogen Normal Negative mg/dL Urine Leukocyte Esterase Negative Negative /uL Urine RBC 1 0 - 4 /hpf Urine Microscopic WBC 1 0-5 /HPF Urine Squamous Epithelial Cells Few <5 /hpf Urine Bacteria None seen None Seen /hpf Urine Hyaline Casts Mod 0 - 2 /lpf Urine Glucose Normal Normal mg/dL White Blood Count 6.9 4.4-10.8 10^3/uL Red Blood Count 2.85 L 4.0-5.20 10^6/uL Hemoglobin 10.3 L 12.2-16.2 g/dL Hematocrit 30.2 L 36.0-46.0 % Mean Corpuscular Volume 106.0 H 80.0-100.0 fL Mean Corpuscular Hemoglobin 36.3 H 28.0-32.0 pg Mean Corpuscular Hemoglobin Concent 34.2 32.0-36.0 g/dL Red Cell Distribution Width 14.5 H 11.8-14.3 % Platelet Count 105 L 140-450 10^3/uL Mean Platelet Volume 8.4 6.9-10.8 fL Neutrophils (%) (Auto) 74.3 37.0-80.0 % Lymphocytes (%) (Auto) 8.5 L 10.0-50.0 % Monocytes (%) (Auto) 12.3 H 0.0-12.0 % Eosinophils (%) (Auto) 4.6 0.0-7.0 % Basophils (%) (Auto) 0.3 0.0-2.0 % Neutrophils # (Auto) 5.1 1.6-8.6 10 ^3/uL Lymphocytes # (Auto) 0.6 0.4-5.4 10 ^3/uL Monocytes # (Auto) 0.8 0-1.3 10 ^3/uL Eosinophils # (Auto) 0.3 0-0.8 10 ^3/uL Basophils # (Auto) 0 0-0.2 10 ^3/uL Nucleated Red Blood Cells 0.0 % Sodium Level 138 136-145 mmol/L Potassium Level 5.6 *H 3.5-5.1 mmol/L Chloride Level 107 98-107 mmol/L Carbon Dioxide Level 23 20-31 mmol/L Anion Gap 8 5-15 Blood Urea Nitrogen 42 H 9-23 mg/dL Creatinine 1.89 H 0.550-1.02 mg/dL Glomerular Filtration Rate Calc 29 >90 mL/min BUN/Creatinine Ratio 22.2 H 10.0-20.0 Serum Glucose 106 74-106 mg/dL Calcium Level 9.0 8.7-10.4 mg/dL Total Bilirubin 4.5 H 0.2-1.0 mg/dL Aspartate Amino Transferase (AST) 70 H 13-40 U/L Alanine Aminotransferase (ALT) 41 H 7-40 U/L Alkaline Phosphatase 166 H 46-116 U/L Ammonia 18 11-32 umol/L Troponin I High Sensitivity 4 </=34 ng/L Total Protein 5.6 L 5.7-8.2 g/dL Albumin 2.5 L 3.2-4.8 g/dL Current Medications Medications (Trade) Dose Ordered Sig/Anna Route Start Time Stop Time Status Last Admin Bumetanide (Bumex Injection) 2 mg ONCE ONCE IV 10/06/24 13:45 10/06/24 13:46 DC 10/06/24 15:58 Patient slightly disoriented. Complaining of bilateral lower extremity swelling. Vitals stable. Answering questions. Has a history of liver disease. Ammonia level. Reviewed her previous visit. Waiting for family. Continue cardiac monitoring. EKG reviewed does not show any acute changes. WBC within normal limits. Liver enzymes elevated. Potassium elevated. Hyperkalemia treatment. Nephrology consultation. Explained to the patient. Slowly getting better in mentation. [address] [address] Ph: [phone] DIAGNOSTIC IMAGING Diagnostic Imaging Report : [id number] Signed PATIENT: KALPESH KELLOGG ACCT: [id number] UNIT: [id number] : 1955 LOC: ER ROOM / BED: / AGE / SEX: 69 / F ADM STATUS: REG ER SERVICE 1302 ORDERING PHYSICIAN: EDGARD APARICIO MD PROCEDURE(s): CXRP - CHEST PORTABLE REASON: sob ORDER NUMBER(s): [id number], ACCESSION NUMBER(s): [id number] CHEST RADIOGRAPH Indication: sob Technique: Single frontal view of the chest was obtained COMPARISON: XY CHEST PORTABLE on DOS: 09/17/24, XY CHEST PORTABLE on DOS: 05/07/24, XY CHEST PORTABLE on DOS: 02/06/24, XY CHEST XRAY 1 VIEW on DOS: 12/19/23, XY CHEST PORTABLE on DOS: 12/11/23 FINDINGS: Lines and Tubes: None Lungs: Clear Pleura: No effusion. No pneumothorax. Cardiomediastinal contours: Unremarkable Bones: Unremarkable IMPRESSION: No acute disease. ATED BY: DONATO CROWLEY MD DICTATED DATE/TIME: 10/06/24 1325 SIGNED BY: DONATO CROWLEY MD SIGNED DATE/TIME: 10/06/24 1325 CC: Time of 1ST Reevaluation: 13:08 Reevaluation 1ST: Unchanged Patient Education/Counseling: Diagnosis, Treatment, Prognosis Family Education/Counseling: No Family Present Additional Information The following tests were ordered, and results were reviewed by me: TROP, CBC, XY CHEST, UA, BMP, AMMONIA, CMP, WOUND CULTURE W/ GS Additional Information was gathered from interviewing the following independent historians: EMS I reviewed and agreed with the following test results read by other providers: XY CHEST I discussed treatment and results with medical personnel and: patient Comprehensive systems review obtained and negative except for what is stated in the HPI. Departure 1 Departure Time of Disposition: 13:31 Impression: Primary Impression: Metabolic encephalopathy Additional Impressions: Hyperkalemia Bilateral lower extremity edema Hyperbilirubinemia LFT elevation Disposition: ADMITTED INPATIENT Admit to: Med Surg Condition: Guarded Critical Care Note Critical Care Time?: Yes (90 min-critical care time only) Critical care comment: Hyperkalemia Stability Stability form required: No Heart Score Heart Score: Heart Score Response (Comments) Value History Slightly Suspicious 0 EKG Normal 0 Age >65 2 Risk Factors >3 or Hx ASHD 2 Troponin Normal limit 0 Total 4 I personally scribed for EDGARD APARICIO MD ([email or web address]) on 10/06/24 at 13:00. Electronically submitted by Maribell Gutierrez ([email or web address]). I personally scribed for EDGARD APARICIO MD ([email or web address]) on 10/06/24 at 15:00. Electronically submitted by Maribell Gutierrez ([email or web address]). EDGARD APARICIO MD Oct 06, 2024 13:00
[2024-10-06 13:15] VITALS: PULSE 82; RESP 17; O2SAT 93
--- NOTE | 2024-10-06 13:27 | DVH ---
CHEST RADIOGRAPH Indication: sob Technique: Single frontal view of the chest was obtained COMPARISON: XY CHEST PORTABLE on DOS: 09/17/24, XY CHEST PORTABLE on DOS: 05/07/24, XY CHEST PORTABLE o n DOS: 02/06/24, XY CHEST XRAY 1 VIEW on DOS: 12/19/23, XY CHEST PORTABLE on DOS: 12/11/23 FINDINGS: Lines and Tubes: None Lungs: Clear Pleura: No effusion. No pneumothorax. Cardiomediastinal contours: Unremarkable Bones: Unremarkable IMPRESSION: No acute disease.
[2024-10-06 13:54] LABS: Basophils # (auto) 0 10 ^3/uL (0-0.2); Eosinophils # (auto) 0.3 10 ^3/uL (0-0.8); Hemoglobin 10.3 g/dL (12.2-16.2); Lymphocytes # (auto) 0.6 10 ^3/uL (0.4-5.4); Monocytes # (auto) 0.8 10 ^3/uL (0-1.3); Neutrophils % (auto) 74.3 % (37.0-80.0); White Blood Cell 6.9 10^3/uL (4.4-10.8)
[2024-10-06 13:57] LABS: Basophils % (auto) 0.3 % (0.0-2.0); Eosinophils % (auto) 4.6 % (0.0-7.0); Hematocrit 30.2 % (36.0-46.0); Lymphocytes % (auto) 8.5 % (10.0-50.0); Mean Corpuscular Hemoglobin 36.3 pg (28.0-32.0); Mean Corpuscular Hgb Conc. 34.2 g/dL (32.0-36.0); Monocytes % (auto) 12.3 % (0.0-12.0); Neutrophils # (auto) 5.1 10 ^3/uL (1.6-8.6); Platelet Count (auto) 105 10^3/uL (140-450); Red Blood Cells 2.85 10^6/uL (4.0-5.20); Red Cell Distribution Width 14.5 % (11.8-14.3)
[2024-10-06 14:03] LABS: Carbon Dioxide 23 mmol/L (20-31); Glucose 106 mg/dL (74-106)
[2024-10-06 14:04] LABS: Anion Gap 8 (5-15); BUN/Creatinine Ratio 22.2 (10.0-20.0); Sodium 138 mmol/L (136-145)
[2024-10-06 14:07] LABS: Alanine Aminotransferase 41 U/L (7-40); Albumin 2.5 g/dL (3.2-4.8); Alkaline Phosphatase 166 U/L (46-116); Aspartate Aminotransferase 70 U/L (13-40); Blood Urea Nitrogen 42 mg/dL (9-23); Chloride 107 mmol/L (98-107); Total Protein 5.6 g/dL (5.7-8.2)
[2024-10-06 14:11] LABS: Bilirubin, Total 4.5 mg/dL (0.2-1.0); Potassium 5.6 mmol/L (3.5-5.1)
[2024-10-06 15:49] LABS: Urine Bacteria None Seen /hpf (None Seen)
[2024-10-06] MEDS: BUMETANIDE 2.5mg/10ml (0.25 mg/ml) INJ IV ONE (15:58)
[2024-10-06] MEDS ORDERED: DOCUSATE SOD 100 MG CAP PO PRN (16:15)
[2024-10-06] MEDS ORDERED: ONDANSETRON HCL 4 MG/2 ML VIAL IV PRN (16:15)
[2024-10-06] MEDS ORDERED: IBUPROFEN 600 MG TAB PO PRN (16:15)
--- NOTE | 2024-10-06 16:28 | DVHPN2 ---
Subjective Patient is a 69 year-old F with a PMhx of Idiopathic Liver Cirrhosis, HTN, Obesity who presented to the ED with complaints of fluid overload lower extremity swelling and pain at her decubitus ulcer in her sacrum. Patient was recently admitted for confusion. Patient denies any fevers chills chest pain has mild shortness of breath no GI or complaints. Changes from previous H/P or p: No Changes Objective Vitals Vital Signs Date Time Temp Pulse Resp B/P (MAP) Pulse Ox O2 Delivery O2 Flow Rate FiO2 10/06/24 16:20 81 17 124/37 (66) 100 10/06/24 13:15 98.1 98.1 10/06/24 13:15 Room Air* 0 21 Exam Gen: in bed NAD Cvs: N S1/S2, RRR Resp: Creps Abd: Morbidly Obese Herbologist: AAO x3 Ext: 4+ edema Decubitus stage 2-3 present on admission Medications Current Medications Medications Dose Ordered Sig/Anna Route Start Time Stop Time Status Last Admin Dose Admin Bumetanide 1 mg BIDD IV 10/06/24 18:00 UNV Lactulose 30 ml DAILY PO 10/07/24 10:00 UNV Spironolactone 50 mg DAILY PO 10/07/24 10:00 UNV Famotidine 20 mg Q12HR IV 10/06/24 22:00 UNV Sodium Chloride 10 ml Q8HR IV 10/06/24 22:00 UNV Acetaminophen/ Hydrocodone Bitart 1 tab Q4HP PRN PO 10/06/24 16:15 UNV Ondansetron HCl 4 mg Q4HP PRN IV 10/06/24 16:15 UNV Docusate Sodium 100 mg BIDPRN PRN PO 10/06/24 16:15 UNV Multivitamins 1 tab DAILY PO 10/07/24 10:00 UNV Ibuprofen 600 mg Q6HP PRN PO 10/06/24 16:15 UNV Laboratory Results Laboratory Tests 10/06/24 13:30 Chemistry Test 10/06/24 13:30 Albumin 2.5 g/dL (3.2-4.8) L Calcium Level 9.0 mg/dL (8.7-10.4) Total Protein 5.6 g/dL (5.7-8.2) L LFT Test 10/06/24 13:30 Alanine Aminotransferase (ALT) 41 U/L (7-40) H Alkaline Phosphatase 166 U/L (46-116) H Aspartate Amino Transferase (AST) 70 U/L (13-40) H Total Bilirubin 4.5 mg/dL (0.2-1.0) H Urinalysis Test 10/06/24 15:46 Urine Color Pending Urine Clarity Pending Urine pH Pending Urine Specific [place] Pending Urine Protein Pending Urine Ketones Pending Urine Blood Pending Urine Nitrite Pending Urine Bilirubin Pending Urine Urobilinogen Pending Urine Leukocyte Esterase Pending Urine RBC Pending Urine Microscopic WBC Pending Urine Squamous Epithelial Cells Pending Urine Bacteria Pending Urine Glucose Pending Assessment/Plan Assessment/Plan # Fluid Overload due to Liver Cirrhosis - Bumex IV # Idiopathic Liver Cirrhosis # Sacral Decubitus POA - Wound Consult - Position and turn q2 hours # Severe protein Malnutrition - Dietary Cx # Goals of care discussion > 18 mins FULL CODE Plan discussed with: Patient My Orders Orders - BENJAMIN MADISON MD Procedure Category Date Status Time Insert Castrejon Catheter RAMAKRISHNA 10/06/24 In Process 13:33 * Wound Consult CONS 10/06/24 Transmitted Admit ADMIT 10/06/24 Transmitted 16:21 Basic Metabolic Panel LAB 10/07/24 Verified 04:00 Magnesium LAB 10/07/24 Verified 04:00 B-Type Natriuretic LAB 10/07/24 Verified Peptide 04:00 Date of Service: Oct 06, 2024 Billing Provider: BENJAMIN MADISON MD Common Visit Codes: 19629-[id number] INP/OBS CARE (HIGH) Secondary Visit Codes: 27720-[id number] CARE PLAN 30 MINUTES BENJAMIN MADISON MD Oct 06, 2024 16:28
[2024-10-06 16:30] LABS: Urine Blood Negative /uL (Negative); Urine Clarity Clear (Clear); Urine Color Yellow (Yellow); Urine Hyaline Cast MOD /lpf (0 - 2); Urine Protein, UAD Negative (Negative); Urine Specific Gravity 1.012 (1.001-1.035); Urine Squamous Epithelial Cell FEW /hpf (<5); Urine Urobilinogen Normal (Negative); Urine WBC 1 /HPF (0-5)
--- NOTE | 2024-10-06 16:41 | DVHHP2 ---
History of Present Illness Reason for Visit: Hepatic Encepahlopathy History of Present Illness The patient is a 69-year-old female with past medical history of CHF, anemia, gallstones, GERD, and liver disease who presented to [facility] ED with complaint of bilateral lower extremity swelling for the past 2 weeks. Patient reports symptoms progressively get worse with difficulty to ambulate, periods of confusion, getting worse that prompted this visit. Patient was seen and evaluated in the ED, laboratory data shows WBC 6.9, hemoglobin 10.3, hematocrit 30.2, platelets 105, sodium 138, potassium 5.6, BUN 42, creatinine 1.89, GFR 29, glucose 106, AST 70, ALT 41, troponin 4, protein 5.6, albumin 2.5, ammonia 18. Chest x-ray show no acute disease. Patient was started on IV Bumex, please see medication orders section in the computer. On my assessment, patient denied chest pain, no headache, no dizziness, no diaphoresis, no shortness of breath, no abdominal pain, no diarrhea, no nausea, no vomiting, no fever, no chills. Patient was admitted for further evaluation and medical management. Past Medical History Anemia, CHF, Gallstones, GERD, Liver Past Surgical History Tubal Ligation Family History Reviewed, noncontributory to the management of this case. Past Social History The patient lives at home, denies smoking, alcohol or illicit drugs abuse. Review of Systems Constitutional: Yes: Weakness; No: Fever, Chills, Sweats, Malaise, Other Eyes: No: Pain, Vision change, Conjunctivae inflammation, Eyelid inflammation, Other, Redness ENT: No: Ear pain, Ear discharge, Nose pain, Nose discharge, Nose congestion, Mouth pain, Mouth swelling, Throat pain, Throat swelling, Other Respiratory: No: Cough, Dry, Shortness of breath, SOB with excertion, Wheezing, Hemoptysis, Pleuritic Pain, Sputum, Wheezing, Other Cardiovascular: No: Chest Pain, Palpitations, Orthopnea, Paroxysmal Noc. Dyspnea, Edema, Lt Headedness, Other Gastrointestinal: No: Nausea, Vomiting, Abdominal Pain, Diarrhea, Constipation, Melena, Hematochezia, Other Genitourinary: No Dysuria, No Frequency, No Incontinence, No Hematuria, No Retention, No Other Musculoskeletal: other (Bilateral leg swelling); No: neck pain, shoulder pain, arm pain, back pain, hand pain, leg pain, foot pain Skin: Other (Sacral decubitus ulcer); No: Rash, Lesions, Jaundice, Bruising Neurological: No: Weakness, Numbness, Incoordination, Change in speech, Confusion, Seizures, Other Allergies: Coded Allergies: NO KNOWN ALLERGIES (Unverified , 12/04/23) Medications Current Medications Medications Dose Ordered Sig/Anna Route Start Time Stop Time Status Last Admin Dose Admin Bumetanide 1 mg BIDD IV 10/06/24 18:00 Lactulose 30 ml DAILY PO 10/07/24 10:00 Spironolactone 50 mg DAILY PO 10/07/24 10:00 Famotidine 20 mg DAILY IV 10/06/24 16:26 Sodium Chloride 10 ml Q8HR IV 10/06/24 22:00 Acetaminophen/ Hydrocodone Bitart 1 tab Q4HP PRN PO 10/06/24 16:15 Ondansetron HCl 4 mg Q4HP PRN IV 10/06/24 16:15 Docusate Sodium 100 mg BIDPRN PRN PO 10/06/24 16:15 Multivitamins 1 tab DAILY PO 10/07/24 10:00 Ibuprofen 600 mg Q6HP PRN PO 10/06/24 16:15 Hold Exam Vital Signs Vital Signs Date Time Temp Pulse Resp B/P (MAP) Pulse Ox O2 Delivery O2 Flow Rate FiO2 10/06/24 16:20 81 17 124/37 (66) 100 10/06/24 13:15 98.1 98.1 10/06/24 13:15 Room Air* 0 21 General Appearance: Alert, Oriented X3, Cooperative, No acute distress HEENT: Atraumatic, PERRLA, EOMI, Mucous membr. moist/pink Respiratory: Clear to auscultation, Normal air movement Cardiovascular: Regular rate, Normal S1, Normal S2, No murmurs Abdominal: Normal bowel sounds, Soft, No tenderness, No hepatospenomegaly, No masses Extremities: No clubbing, No cyanosis, Normal pulses, No tenderness/swelling, Other (Lower extremity edema) Skin: No rashes Neuro: Normal speech, Normal tone, Sensation intact, Cranial nerves 3-12 NL, Reflexes 2+, Other (Generalized weakness) Psych/Mental Status: Mental status NL, Mood NL Labs/Xrays Labs Test 10/06/24 15:46 10/06/24 13:30 Range/Units Urine Color Yellow Yellow Urine Clarity Clear Clear Urine pH 5.0 5.0-9.0 Urine Specific [place] 1.012 1.001-1.035 Urine Protein Negative Negative Urine Ketones Negative Negative Urine Blood Negative Negative /uL Urine Nitrite Negative Negative Urine Bilirubin Negative Negative Urine Urobilinogen Normal Negative mg/dL Urine Leukocyte Esterase Negative Negative /uL Urine RBC 1 0 - 4 /hpf Urine Microscopic WBC 1 0-5 /HPF Urine Squamous Epithelial Cells Few <5 /hpf Urine Bacteria None seen None Seen /hpf Urine Hyaline Casts Mod 0 - 2 /lpf Urine Glucose Normal Normal mg/dL White Blood Count 6.9 4.4-10.8 10^3/uL Red Blood Count 2.85 L 4.0-5.20 10^6/uL Hemoglobin 10.3 L 12.2-16.2 g/dL Hematocrit 30.2 L 36.0-46.0 % Mean Corpuscular Volume 106.0 H 80.0-100.0 fL Mean Corpuscular Hemoglobin 36.3 H 28.0-32.0 pg Mean Corpuscular Hemoglobin Concent 34.2 32.0-36.0 g/dL Red Cell Distribution Width 14.5 H 11.8-14.3 % Platelet Count 105 L 140-450 10^3/uL Mean Platelet Volume 8.4 6.9-10.8 fL Neutrophils (%) (Auto) 74.3 37.0-80.0 % Lymphocytes (%) (Auto) 8.5 L 10.0-50.0 % Monocytes (%) (Auto) 12.3 H 0.0-12.0 % Eosinophils (%) (Auto) 4.6 0.0-7.0 % Basophils (%) (Auto) 0.3 0.0-2.0 % Neutrophils # (Auto) 5.1 1.6-8.6 10 ^3/uL Lymphocytes # (Auto) 0.6 0.4-5.4 10 ^3/uL Monocytes # (Auto) 0.8 0-1.3 10 ^3/uL Eosinophils # (Auto) 0.3 0-0.8 10 ^3/uL Basophils # (Auto) 0 0-0.2 10 ^3/uL Nucleated Red Blood Cells 0.0 % Sodium Level 138 136-145 mmol/L Potassium Level 5.6 *H 3.5-5.1 mmol/L Chloride Level 107 98-107 mmol/L Carbon Dioxide Level 23 20-31 mmol/L Anion Gap 8 5-15 Blood Urea Nitrogen 42 H 9-23 mg/dL Creatinine 1.89 H 0.550-1.02 mg/dL Glomerular Filtration Rate Calc 29 >90 mL/min BUN/Creatinine Ratio 22.2 H 10.0-20.0 Serum Glucose 106 74-106 mg/dL Calcium Level 9.0 8.7-10.4 mg/dL Total Bilirubin 4.5 H 0.2-1.0 mg/dL Aspartate Amino Transferase (AST) 70 H 13-40 U/L Alanine Aminotransferase (ALT) 41 H 7-40 U/L Alkaline Phosphatase 166 H 46-116 U/L Ammonia 18 11-32 umol/L Troponin I High Sensitivity 4 </=34 ng/L Total Protein 5.6 L 5.7-8.2 g/dL Albumin 2.5 L 3.2-4.8 g/dL PATIENT: KALPESH KELLOGG ACCT: [id number] UNIT: [id number] : 1955 LOC: ER ROOM / BED: / AGE / SEX: 69 / F ADM STATUS: REG ER SERVICE 1302 ORDERING PHYSICIAN: EDGARD APARICIO MD PROCEDURE(s): CXRP - CHEST PORTABLE REASON: sob ORDER NUMBER(s): [id number], ACCESSION NUMBER(s): [id number] CHEST RADIOGRAPH Indication: sob Technique: Single frontal view of the chest was obtained COMPARISON: XY CHEST PORTABLE on DOS: 09/17/24, XY CHEST PORTABLE on DOS: 05/07/24, XY CHEST PORTABLE on DOS: 02/06/24, XY CHEST XRAY 1 VIEW on DOS: 12/19/23, XY CHEST PORTABLE on DOS: 12/11/23 FINDINGS: Lines and Tubes: None Lungs: Clear Pleura: No effusion. No pneumothorax. Cardiomediastinal contours: Unremarkable Bones: Unremarkable IMPRESSION: No acute disease. Assessment/Plan Assessment/Plan Hepatic encephalopathy Hyperkalemia Bilateral lower extremity edema Hyperbilirubinemia Elevated liver enzymes Sacral decubitus ulcer Acute on chronic renal failure Plan 1. Admit to med surge unit 2. Breathing treatment 3. Pain control management 4. Management of fluids and electrolytes 5. Consultation for hospitalist 6. Diagnostic tests chest x-ray 7. DVT prophylaxis on SCDs 8. Repeat labs CBC, CMP in a.m. 9. Continue with current medical management 10. Treatment plan discussed with patient and RN. Patient verbalized un derstanding. Plan discussed with: Patient, Other (RN) My Orders Orders - PATRICIO BLACKWELL DNP Procedure Category Date Status Time Bumetanide Injection PHA 10/06/24 In Process (Bumex Injection) 18:00 Lactulose Oral PHA 10/07/24 In Process 10:00 Spironolactone PHA 10/07/24 In Process (Aldactone) 10:00 *[facility] CONS 10/06/24 Transmitted -[place] 16:02 Famotidine Injection PHA 10/06/24 In Process (Pepcid Injection) 16:26 Albumin 25% (Albutein) PHA 10/06/24 In Process 16:15 Allergies RAMAKRISHNA 10/06/24 In Process 16:02 Code Status CODE 10/06/24 Transmitted 16:02 Renal DIET 10/06/24 Transmitted Standard(2gna,3gk,Lopho) Dinner Sodium Chloride Lock PHA 10/06/24 In Process (Saline Lock Ns) 22:00 Oxygen Per Hour RT 10/06/24 Transmitted 16:02 Hydrocodone-Acet PHA 10/06/24 In Process 5/325mg Tab ([place] 16:15 Ondansetron Hcl PHA 10/06/24 In Process (Zofran) 16:15 Docusate Sodium PHA 10/06/24 In Process Capsule (Colace 16:15 Multiple Vitamin PHA 10/07/24 In Process Tablet (Mvi Tab) 10:00 Complete Blood Count LAB 10/07/24 Verified 04:00 Comprehensive LAB 10/07/24 Verified Metabolic Panel 04:00 Condition: Serious RAMAKRISHNA 10/06/24 In Process 16:02 Bedrest With Bathroom RAMAKRISHNA 10/06/24 In Process Privileg 16:02 Sequential RAMAKRISHNA 10/06/24 In Process Compression Device Ibuprofen Tablet PHA 10/06/24 In Process (Motrin Tablet) 16:15 Pharmacy RAMAKRISHNA 10/06/24 In Process Clarification: 16:26 Problem List: (1) Hepatic encephalopathy (2) Hyperkalemia (3) Elevated liver enzymes (4) Hyperbilirubinemia (5) Bilateral lower extremity edema (6) Sacral decubitus ulcer (7) Acute on chronic renal failure Date of Service: Oct 06, 2024 Billing Provider: PATRICIO BLACKWELL DNP Common Visit Codes: [id number] INP/OBS CARE (HIGH) PATRICIO BLACKWELL DNP Oct 06, 2024 16:41
[2024-10-06] MEDS: FUROSEMIDE 20 MG/2 ML VIAL IV ONE (16:45)
[2024-10-06] MEDS: InsuLIN REG 1unit/0.01ml Soln (100units/ml) IV ONE (16:45)
[2024-10-06] MEDS: CALCIUM GLUC 1,000mg/50ml-NS 50 ML IV ONE (16:45)
[2024-10-06] MEDS: DEXTROSE (50%) 50ML SYRG IV ONE (16:45)
[2024-10-06] MEDS: SODIUM BICARB 8.4% 50Meq/50ml SYR INJ IV ONE (16:45)
[2024-10-06] MEDS: ALBUTEROL SULF 2.5 MG/0.5ML(0.5%) NEB SOLN NEB ONE (16:54)
[2024-10-06] MEDS: SODIUM ZIRCONIUM CYCL 10 GM PAK PO ONE ×2 (17:00→17:52)
[2024-10-06] MEDS: FAMOTIDINE (10MG/ML) 2ML VL IV SCH (17:53)
[2024-10-06] MEDS: ALBUMIN 25% 100 ML IV ONE (17:53)
[2024-10-06] MEDS: BUMETANIDE 1mg/4ml VIAL (0.25mg/ml) IV SCH (18:00)
[2024-10-06 19:30] VITALS: PULSE 90; RESP 15; O2SAT 90
[2024-10-06] MEDS: SODIUM CHLOR 0.9% PF (SALINE LOCK) 10ML VIAL/SYR IV SCH (22:27)
[2024-10-06] MEDS: HYDROcodone-ACET 5/325MG TAB PO PRN (22:48)
[2024-10-07] VITALS (9 sets, daily range): BP systolic 113–134; BP diastolic 37–86; PULSE 69–85; RESP 17–20; TEMP 97.4–98.5; O2SAT 95–100
[2024-10-07 07:17] LABS: Alanine Aminotransferase 35 U/L (7-40); Anion Gap 11 (5-15); BUN/Creatinine Ratio 20.1 (10.0-20.0); Calcium 8.8 mg/dL (8.7-10.4); Carbon Dioxide 21 mmol/L (20-31); Chloride 102 mmol/L (98-107); Magnesium 2.2 mg/dL (1.6-2.6); Potassium 4.6 mmol/L (3.5-5.1)
[2024-10-07 07:20] LABS: Albumin 2.7 g/dL (3.2-4.8); Alkaline Phosphatase 140 U/L (46-116); Aspartate Aminotransferase 51 U/L (13-40); Bilirubin, Total 4.6 mg/dL (0.2-1.0); Blood Urea Nitrogen 37 mg/dL (9-23); Glucose 71 mg/dL (74-106); Sodium 134 mmol/L (136-145); Total Protein 5.6 g/dL (5.7-8.2)
[2024-10-07 07:21] LABS: Basophils # (auto) 0 10 ^3/uL (0-0.2); Basophils % (auto) 0.6 % (0.0-2.0); Eosinophils # (auto) 0.2 10 ^3/uL (0-0.8); Eosinophils % (auto) 4.8 % (0.0-7.0); Hematocrit 30.5 % (36.0-46.0); Hemoglobin 9.7 g/dL (12.2-16.2); Lymphocytes # (auto) 0.7 10 ^3/uL (0.4-5.4); Mean Corpuscular Hemoglobin 34.7 pg (28.0-32.0); Mean Corpuscular Hgb Conc. 31.8 g/dL (32.0-36.0); Mean Corpuscular Volume 109.1 fL (80.0-100.0); Monocytes # (auto) 0.6 10 ^3/uL (0-1.3); Monocytes % (auto) 11.9 % (0.0-12.0); Neutrophils # (auto) 3.5 10 ^3/uL (1.6-8.6); Neutrophils % (auto) 68.7 % (37.0-80.0); Platelet Count (auto) 76 10^3/uL (140-450); Red Blood Cells 2.79 10^6/uL (4.0-5.20); Red Cell Distribution Width 14.6 % (11.8-14.3); White Blood Cell 5.2 10^3/uL (4.4-10.8)
[2024-10-07] MEDS: LACTULOSE 20Gm/30ML SOLN PO SCH (09:58)
[2024-10-07] MEDS: MULTIPLE VITAMIN TAB PO SCH (09:59)
[2024-10-07] MEDS: SPIRONOLACTONE 25 MG TAB PO SCH (09:59)
--- NOTE | 2024-10-07 10:05 | DVHPN2 ---
Progress Note Date Seen: Oct 07, 2024 Medical Necessity Reason Pt with a Central, PICC or Fol: No Subjective Patient reports: No new complaints Review of Systems: HEENT:Normal, CVS:Normal, RESPIRATORY:Normal, GI:Normal, :Normal, MSK:Normal, NEURO:Normal Objective vital signs Vital Sign Date Time Temp Pulse Resp B/P (MAP) Pulse Ox O2 Delivery O2 Flow Rate FiO2 10/07/24 07:46 97.4 77 20 132/37 (68) 100 97.4 10/07/24 00:49 Room Air* 0 21 Total Intake and Output 10/06/24 10/06/24 10/07/24 15:00 23:00 07:00 Intake Total 600 ml Output Total 1400 ml Balance -800 ml medications Current Medications Medications Dose Ordered Sig/Anna Route Start Time Stop Time Status Last Admin Dose Admin Bumetanide 1 mg BIDD IV 10/06/24 18:00 10/07/24 05:55 1 MG Lactulose 30 ml DAILY PO 10/07/24 10:00 Spironolactone 50 mg DAILY PO 10/07/24 10:00 Famotidine 20 mg DAILY IV 10/06/24 16:26 10/06/24 17:53 20 MG Sodium Chloride 10 ml Q8HR IV 10/06/24 22:00 10/07/24 05:57 10 ML Acetaminophen/ Hydrocodone Bitart 1 tab Q4HP PRN PO 10/06/24 16:15 10/06/24 22:48 1 TAB Ondansetron HCl 4 mg Q4HP PRN IV 10/06/24 16:15 Docusate Sodium 100 mg BIDPRN PRN PO 10/06/24 16:15 Multivitamins 1 tab DAILY PO 10/07/24 10:00 Examination: GENERAL:Normal, HEENT:Normal, NECK:Normal, LUNGS:Normal, CVS:Normal, ABDOMEN:Normal, MSK:Normal, MSK:Abnormal (edema+++), SKIN:Normal, NEURO:Normal, :Normal laboratory and microbiology Laboratory Tests 10/07/24 05:12 Test 10/07/24 05:12 Range/Units Serum Glucose 71 L 74-106 mg/dL Problem List/Assessment/Plan Problem List/Assessment/Plan #1 fluid overload/acute on chronic diastolic heart failure: bumex, aldactone #2 liver cirrhosis/metabolic liver disease #3 acute renal failure ?vasomotor nephropathy #4 ? ascites: paracentesis #5 obesity #6 anemia/thrombocytopenia #7 hyperkalemia: improved #8 mod protein malnutrition advance care planning- wishes to be dnr- time spent 21 mins Plan discussed with: Patient My Orders My Orders Orders - LUCIA HUNTER MD Procedure Category Date Status Time Pt Request For Service PT 10/07/24 Verified 09:58 Paracentesis US 10/07/24 Verified 09:58 Comprehensive LAB 10/08/24 Verified Metabolic Panel 06:00 PTPTT LAB 10/08/24 Verified 04:00 Date of Service: Oct 07, 2024 Billing Provider: LUCIA HUNTER MD Common Visit Codes: [id number] INP/OBS CARE(HIGH) Secondary Visit Codes: [id number] CARE PLAN 30 MINUTES LUCIA HUNTER MD Oct 07, 2024 10:05
--- NOTE | 2024-10-07 11:20 | DVH ---
US ABDOMEN LIMITED HISTORY: FLUID CHECK COMPARISON: US ABDOMEN LIMITED on DOS: 05/07/24, US ABDOMEN LIMITED on DOS: 02/07/24 TECHNIQUE: Transverse and longitudinal sonographic images were obtained of all four quadrants of the abdomen and pelvis. FINDINGS: IMPRESSION: Small volume of ascites.
--- NOTE | 2024-10-07 11:24 | DVHINCON2 ---
Date of service: Oct 07, 2024 Referring Physician Hospitalist Reason for Consultation Acute kidney injury History of Present Illness 69-year-old white female past medical history of fatty liver disease and cirrhosis on the spironolactone and Bumex presents to the hospital complaining of progressive swelling in her legs. Nephrology consulted due to acute kidney injury. Previous workup also shows history of diastolic heart failure. At presentation patient was found to have elevated potassium level. Previous renal function is normal at baseline patient denies any history of kidney problems Past Medical History Cirrhosis Fatty liver disease Diastolic heart failure Past Surgical History Paracentesis Allergies: Coded Allergies: NO KNOWN ALLERGIES (Unverified , 12/04/23) Home Meds Active Scripts Ciprofloxacin Hcl (Ciprofloxacin Hcl) 250 Mg Tab, 2 TAB PO BID for 7 Days, #28 TAB Prov:SANIA QUICK MD 09/21/24 Rifaximin (Xifaxan) 550 Mg Tab, 550 MG PO BID for 30 Days, #60 TAB Prov:PRITESH MACK [facility] 05/09/24 Spironolactone (Aldactone) 25 Mg Tab, 50 MG PO DAILY for 30 Days, #60 TAB [facility] 05/09/24 Lactulose (Lactulose) 10 Gm/15 Ml Katelynn, 30 ML PO Q6HR for 30 Days, #1 BOTTLE Prov:FREDERICKPRITESH [facility] 05/09/24 Furosemide (Furosemide) 20 Mg Tab, 20 MG PO DAILY for 30 Days, #30 TAB Prov:[facility]PRITESH [facility] 05/09/24 Nystatin (Mycostatin) 1 Applic Ap, 1 APPLIC TOP BID for 5 Days, #1 APPLIC Prov:RAN MARIE RESIDENT 12/19/23 Metronidazole (Metronidazole) 500 Mg Tab, 500 MG PO Q8HR for 3 Days, #9 TAB Prov:RAN MARIE [facility] 12/19/23 Cefpodoxime Proxetil (Cefpodoxime Proxetil) 200 Mg Tab, 200 MG PO BID for 3 Days, #6 TAB Prov:RAN MARIE RESIDENT 12/19/23 Reported Medications Potassium Chloride (Potassium Chloride ER) 20 Meq Tab, 20 MEQ PO DAILY WITH FOOD, TAB 02/08/24 Discontinued Reported Medications Bumetanide (Bumetanide) 1 Mg Tab, 1 MG PO BID, MG 02/08/24 Current Medications Current Medications Medications (Trade) Dose Ordered Sig/Anna Route PRN Reason Start Time Stop Time Status Last Admin Bumetanide (Bumex Injection) 1 mg BIDD IV 10/06/24 18:00 10/07/24 05:55 Lactulose 30 ml DAILY PO 10/07/24 10:00 10/07/24 09:58 Spironolactone (Aldactone) 50 mg DAILY PO 10/07/24 10:00 10/07/24 10:07 DC 10/07/24 09:59 Famotidine (Pepcid Injection) 20 mg DAILY IV 10/06/24 16:26 10/07/24 09:58 Sodium Chloride (Saline Lock Ns) 10 ml Q8HR IV 10/06/24 22:00 10/07/24 05:57 Acetaminophen/ Hydrocodone Bitart ([place] 5/325MG Tab) 1 tab Q4HP PRN PO MODERATE PAIN (4-6 PAIN SCALE) 10/06/24 16:15 10/07/24 10:01 Ondansetron HCl (Zofran) 4 mg Q4HP PRN IV NAUSEA / VOMITING 10/06/24 16:15 Docusate Sodium (Colace Capsule) 100 mg BIDPRN PRN PO FOR CONSTIPATION 10/06/24 16:15 Multivitamins (Mvi Tab) 1 tab DAILY PO 10/07/24 10:00 10/07/24 09:59 Ibuprofen (Motrin Tablet) 600 mg Q6HP PRN PO PAIN SCALE 1-3 OR TEMP>100.4 10/06/24 16:15 10/06/24 18:53 DC Octreotide Acetate (SandoSTATIN) 100 mcg TID SUBCUT 10/07/24 14:00 Family History: Alcoholism G8 FATHER FH: alcohol abuse Meningitis G8 MOTHER Review of Systems Leg swelling H&P Exam Vital Signs/I&O Vital Sign Date Time Temp Pulse Resp B/P (MAP) Pulse Ox O2 Delivery O2 Flow Rate FiO2 10/07/24 07:46 97.4 77 20 132/37 (68) 100 97.4 10/07/24 00:49 Room Air* 0 21 Intake and Output 10/06/24 10/07/24 19:00 07:00 Intake Total 600 ml Output Total 1400 ml Balance -800 ml Intake Oral 600 ml Output Urine Total 1400 ml Physical Exam Overweight elderly white female Not in overt distress Abdominal ventral hernia noted No murmur Lungs clear to auscultation bilaterally 2+ bilateral ankle edema Labs/Diagnostic Data Labs/Diagnostic Data Laboratory Tests Test 10/07/24 05:12 10/06/24 20:51 10/06/24 15:46 10/06/24 13:30 Range/Units White Blood Count 5.2 6.9 4.4-10.8 10^3/uL Red Blood Count 2.79 L 2.85 L 4.0-5.20 10^6/uL Hemoglobin 9.7 L 10.3 L 12.2-16.2 g/dL Hematocrit 30.5 L 30.2 L 36.0-46.0 % Mean Corpuscular Volume 109.1 H 106.0 H 80.0-100.0 fL Mean Corpuscular Hemoglobin 34.7 H 36.3 H 28.0-32.0 pg Mean Corpuscular Hemoglobin Concent 31.8 L 34.2 32.0-36.0 g/dL Red Cell Distribution Width 14.6 H 14.5 H 11.8-14.3 % Platelet Count 76 L 105 L 140-450 10^3/uL Mean Platelet Volume 8.2 8.4 6.9-10.8 fL Neutrophils (%) (Auto) 68.7 74.3 37.0-80.0 % Lymphocytes (%) (Auto) 14.0 8.5 L 10.0-50.0 % Monocytes (%) (Auto) 11.9 12.3 H 0.0-12.0 % Eosinophils (%) (Auto) 4.8 4.6 0.0-7.0 % Basophils (%) (Auto) 0.6 0.3 0.0-2.0 % Neutrophils # (Auto) 3.5 5.1 1.6-8.6 10 ^3/uL Lymphocytes # (Auto) 0.7 0.6 0.4-5.4 10 ^3/uL Monocytes # (Auto) 0.6 0.8 0-1.3 10 ^3/uL Eosinophils # (Auto) 0.2 0.3 0-0.8 10 ^3/uL Basophils # (Auto) 0 0 0-0.2 10 ^3/uL Nucleated Red Blood Cells 0.0 0.0 % Sodium Level 134 L 138 136-145 mmol/L Potassium Level 4.6 5.0 5.6 *H 3.5-5.1 mmol/L Chloride Level 102 107 98-107 mmol/L Carbon Dioxide Level 21 23 20-31 mmol/L Anion Gap 11 8 5-15 Blood Urea Nitrogen 37 H 42 H 9-23 mg/dL Creatinine 1.84 H 1.89 H 0.550-1.02 mg/dL Glomerular Filtration Rate Calc 30 29 >90 mL/min BUN/Creatinine Ratio 20.1 H 22.2 H 10.0-20.0 Serum Glucose 71 L 106 74-106 mg/dL Calcium Level 8.8 9.0 8.7-10.4 mg/dL Magnesium Level 2.2 1.6-2.6 mg/dL Total Bilirubin 4.6 H 4.5 H 0.2-1.0 mg/dL Aspartate Amino Transferase (AST) 51 H 70 H 13-40 U/L Alanine Aminotransferase (ALT) 35 41 H 7-40 U/L Alkaline Phosphatase 140 H 166 H 46-116 U/L B-Type Natriuretic Peptide 127.38 0-100 pg/mL Total Protein 5.6 L 5.6 L 5.7-8.2 g/dL Albumin 2.7 L 2.5 L 3.2-4.8 g/dL Urine Color Yellow Yellow Urine Clarity Clear Clear Urine pH 5.0 5.0-9.0 Urine Specific [place] 1.012 1.001-1.035 Urine Protein Negative Negative Urine Ketones Negative Negative Urine Blood Negative Negative /uL Urine Nitrite Negative Negative Urine Bilirubin Negative Negative Urine Urobilinogen Normal Negative mg/dL Urine Leukocyte Esterase Negative Negative /uL Urine RBC 1 0 - 4 /hpf Urine Microscopic WBC 1 0-5 /HPF Urine Squamous Epithelial Cells Few <5 /hpf Urine Bacteria None seen None Seen /hpf Urine Hyaline Casts Mod 0 - 2 /lpf Urine Glucose Normal Normal mg/dL Ammonia 18 11-32 umol/L Troponin I High Sensitivity 4 </=34 ng/L Assessment Acute kidney injury secondary to fluid overload: prerenal Cirrhosis versus CHF as cause of fluid overload Hyperkalemia likely in the setting of acute kidney injury and spironolactone Hypervolemia Fatty liver disease with cirrhosis; anemia and thrombocytopenia Aldactone on hold Ultrasound of the kidney Recommend considering new ultrasound of the heart to evaluate cardiac function Currently on Bumex we will continue Strict Is&Os Plan discussed with: Patient FABRCIE GARCIA MD Oct 07, 2024 11:23
--- NOTE | 2024-10-07 13:44 | DVH ---
RENAL ULTRASOUND CLINICAL HISTORY: JOSE ALBERTO TECHNIQUE: Multiple ultrasound images of the kidneys and bladder were obtained. COMPARISON: None FINDINGS: The right kidney measures 10.8 cm in length. The left kidney measures 9.3 cm. The kidneys appear echo genic compatible with medical renal disease. There is no evidence of nephrolithiasis or hydronephrosi s. There is a Castrejon catheter in the bladder which is decompressed. IMPRESSION: 1. Kidneys appear echogenic compatible with medical renal disease. HS:Y
[2024-10-07] MEDS: OCTREOTIDE ACETATE 100 MCG/ML VL SUBCUT SCH (15:07)
[2024-10-08] VITALS (8 sets, daily range): BP systolic 104–136; BP diastolic 48–64; PULSE 56–83; RESP 17–20; TEMP 97.4–98.4; O2SAT 97–100
[2024-10-08 07:31] LABS: Hematocrit 29.1 % (36.0-46.0); Hemoglobin 9.7 g/dL (12.2-16.2); Mean Corpuscular Hemoglobin 35.8 pg (28.0-32.0); Mean Corpuscular Hgb Conc. 33.2 g/dL (32.0-36.0); Neutrophils # (auto) 3.3 10 ^3/uL (1.6-8.6); White Blood Cell 4.7 10^3/uL (4.4-10.8)
[2024-10-08 07:33] LABS: Basophils # (auto) 0.2 10 ^3/uL (0-0.2); Basophils % (auto) 3.8 % (0.0-2.0); Eosinophils # (auto) 0.2 10 ^3/uL (0-0.8); Lymphocytes # (auto) 0.5 10 ^3/uL (0.4-5.4); Mean Corpuscular Volume 107.7 fL (80.0-100.0); Monocytes # (auto) 0.5 10 ^3/uL (0-1.3); Monocytes % (auto) 10.1 % (0.0-12.0); Neutrophils % (auto) 70.1 % (37.0-80.0); Nucleated Red Blood Cells % 0.2 %; Red Cell Distribution Width 14.3 % (11.8-14.3)
[2024-10-08 07:35] LABS: Platelet Count (auto) 76 10^3/uL (140-450)
[2024-10-08 07:47] LABS: Alanine Aminotransferase 32 U/L (7-40); Anion Gap 11 (5-15); BUN/Creatinine Ratio 14.9 (10.0-20.0); Carbon Dioxide 22 mmol/L (20-31); Chloride 100 mmol/L (98-107); Potassium 4.5 mmol/L (3.5-5.1)
[2024-10-08 07:48] LABS: Albumin 2.5 g/dL (3.2-4.8); Alkaline Phosphatase 125 U/L (46-116); Aspartate Aminotransferase 49 U/L (13-40); Bilirubin, Total 5.2 mg/dL (0.2-1.0); Blood Urea Nitrogen 30 mg/dL (9-23); Calcium 8.7 mg/dL (8.7-10.4); Glucose 109 mg/dL (74-106); Sodium 133 mmol/L (136-145); Total Protein 5.4 g/dL (5.7-8.2)
[2024-10-08 08:08] LABS: INR 1.33 (0.9-1.15); Partial Thromboplastin Time 36.5 SEC (24.5-34.5); Prothrombin Time 13.7 sec (9.3-11.8)
--- NOTE | 2024-10-08 09:57 | DVHPN2 ---
Progress Note Date Seen: Oct 08, 2024 Medical Necessity Reason Pt with a Central, PICC or Fol: No Subjective Patient reports: No new complaints Review of Systems: HEENT:Normal, CVS:Normal, RESPIRATORY:Normal, GI:Normal, :Normal, MSK:Normal, NEURO:Normal Objective vital signs Vital Sign Date Time Temp Pulse Resp B/P (MAP) Pulse Ox O2 Delivery O2 Flow Rate FiO2 10/08/24 08:57 97.6 56 20 108/49 (68) 99 97.6 10/07/24 20:00 Room Air* 0 21 Total Intake and Output 10/07/24 10/07/24 10/08/24 15:00 23:00 07:00 Intake Total 830 ml 500 ml Output Total 3650 ml 1100 ml Balance -2820 ml -600 ml medications Current Medications Medications Dose Ordered Sig/Anna Route Start Time Stop Time Status Last Admin Dose Admin Bumetanide 1 mg BIDD IV 10/06/24 18:00 10/08/24 05:51 1 MG Lactulose 30 ml DAILY PO 10/07/24 10:00 10/07/24 09:58 30 ML Famotidine 20 mg DAILY IV 10/06/24 16:26 10/07/24 09:58 20 MG Sodium Chloride 10 ml Q8HR IV 10/06/24 22:00 10/08/24 05:51 10 ML Acetaminophen/ Hydrocodone Bitart 1 tab Q4HP PRN PO 10/06/24 16:15 10/07/24 23:31 1 TAB Ondansetron HCl 4 mg Q4HP PRN IV 10/06/24 16:15 Docusate Sodium 100 mg BIDPRN PRN PO 10/06/24 16:15 Multivitamins 1 tab DAILY PO 10/07/24 10:00 10/07/24 09:59 1 TAB Octreotide Acetate 100 mcg TID SUBCUT 10/07/24 14:00 10/08/24 05:52 100 MCG Examination: GENERAL:Normal, HEENT:Normal, NECK:Normal, LUNGS:Normal, CVS:Normal, ABDOMEN:Normal, MSK:Normal, MSK:Abnormal (edema, ecchymosis), SKIN:Normal, NEURO:Normal, :Normal laboratory and microbiology Laboratory Tests 10/08/24 06:51 Test 10/08/24 06:51 Range/Units Serum Glucose 109 H 74-106 mg/dL Problem List/Assessment/Plan Problem List/Assessment/Plan #1 fluid overload/acute on chronic diastolic heart failure: bumex #2 liver cirrhosis/metabolic liver disease #3 acute renal failure ?vasomotor nephropathy #4 ? ascites: paracentesis #5 obesity #6 anemia/thrombocytopenia #7 hyperkalemia: improved #8 mod protein malnutrition advance care planning- wishes to be dnr- time spent 21 mins Plan discussed with: Patient My Orders My Orders Orders - LUCIA HUNTER MD Procedure Category Date Status Time Pt Request For Service PT 10/07/24 Logged 09:58 Discontinue Tele RAMAKRISHNA 10/07/24 In Process 10:05 Transfer Orders XFER 10/07/24 Transmitted 10:05 Octreotide Acetate PHA 10/07/24 In Process (Sandostatin) 14:00 Code Status CODE 10/07/24 Transmitted 10:18 Dietary Evaluation Review Comments: To avoid uremic syndrome, encouarge Renal Specific Protein 37 restriction diet. The dietary prtein may be increased to 50-61 gram once pt is on routine dialysis. Tight sodium control for preventing edema. Expected Outcomes/Goals: Improved nutrition status. Date of Service: Oct 08, 2024 Billing Provider: LUCIA HUNTER MD Common Visit Codes: [id number] INP/OBS CARE(HIGH) LUCIA HUNTER MD Oct 08, 2024 09:57
--- NOTE | 2024-10-08 13:10 | DVHPN2 ---
Progress Note Date Seen: Oct 08, 2024 Medical Necessity Reason Pt with a Central, PICC or Fol: Yes The following are medically ne: Castrejon Catheter Subjective Patient reports: Feels better Objective vital signs Vital Sign Date Time Temp Pulse Resp B/P (MAP) Pulse Ox O2 Delivery O2 Flow Rate FiO2 10/08/24 13:00 98.4 66 20 105/50 (68) 98 98.4 10/08/24 08:00 Room Air* 0 21 Total Intake and Output 10/07/24 10/07/24 10/08/24 15:00 23:00 07:00 Intake Total 830 ml 500 ml Output Total 3650 ml 1100 ml Balance -2820 ml -600 ml medications Current Medications Medications Dose Ordered Sig/Anna Route Start Time Stop Time Status Last Admin Dose Admin Lactulose 30 ml DAILY PO 10/07/24 10:00 10/08/24 10:23 30 ML Sodium Chloride 10 ml Q8HR IV 10/06/24 22:00 10/08/24 05:51 10 ML Acetaminophen/ Hydrocodone Bitart 1 tab Q4HP PRN PO 10/06/24 16:15 10/07/24 23:31 1 TAB Ondansetron HCl 4 mg Q4HP PRN IV 10/06/24 16:15 Docusate Sodium 100 mg BIDPRN PRN PO 10/06/24 16:15 Multivitamins 1 tab DAILY PO 10/07/24 10:00 10/08/24 10:23 1 TAB Octreotide Acetate 100 mcg TID SUBCUT 10/07/24 14:00 10/08/24 05:52 100 MCG Bumetanide 1 mg QAM IV 10/09/24 07:00 Pantoprazole Sodium 40 mg DAILY@0600 PO 10/09/24 06:00 Examination: GENERAL:Normal, CVS:Normal, ABDOMEN:Abnormal, SKIN:Normal laboratory and microbiology Laboratory Tests 10/08/24 06:51 Test 10/08/24 06:51 Range/Units Serum Glucose 109 H 74-106 mg/dL Problem List/Assessment/Plan Problem List/Assessment/Plan Acute kidney injury secondary to fluid overload: prerenal Cirrhosis versus CHF as cause of fluid overload Hyperkalemia likely in the setting of acute kidney injury and spironolactone Hypervolemia Fatty liver disease with cirrhosis; anemia and thrombocytopenia edema better UF nearly 4.7L cr worsened in setting of poor fluid mobilization. agree with reducing diuretics. Can convert to po regime soon Aldactone on hold Ultrasound of the kidney unremarkable Recommend considering new ultrasound of the heart to evaluate cardiac function Currently on Bumex we will continue Strict Is&Os Plan discussed with: Patient Dietary Evaluation Review Comments: To avoid uremic syndrome, encouarge Renal Specific Protein 37 restriction diet. The dietary prtein may be increased to 50-61 gram once pt is on routine dialysis. Tight sodium control for preventing edema. Expected Outcomes/Goals: Improved nutrition status. FABRICE GARCIA MD Oct 08, 2024 13:10
[2024-10-09] VITALS (8 sets, daily range): BP systolic 100–115; BP diastolic 41–49; PULSE 67–75; RESP 16–17; TEMP 97.2–98; O2SAT 96–100
[2024-10-09] MEDS: BUMETANIDE 1mg/4ml VIAL (0.25mg/ml) IV SCH (06:05)
[2024-10-09] MEDS: PANTOPRAZOLE 40 MG TAB PO SCH (06:06)
[2024-10-09 07:54] LABS: Chloride 101 mmol/L (98-107)
[2024-10-09 07:55] LABS: Anion Gap 8 (5-15); Carbon Dioxide 25 mmol/L (20-31)
[2024-10-09 08:00] LABS: Glucose 102 mg/dL (74-106)
[2024-10-09 08:01] LABS: BUN/Creatinine Ratio 16.5 (10.0-20.0)
[2024-10-09 08:04] LABS: Blood Urea Nitrogen 28 mg/dL (9-23); Calcium 8.7 mg/dL (8.7-10.4); Sodium 134 mmol/L (136-145)
--- NOTE | 2024-10-09 08:21 | DVH ---
Limited Abdominal Ultrasound - Ascites Evaluation Clinical History: FLUID CHECK FOR POSSIBLE PARACENTESIS Comparison: US ABDOMEN LIMITED on DOS: 10/07/24, US ABDOMEN LIMITED on DOS: 05/07/24, US ABDOMEN LIMIT ED on DOS: 02/07/24 Technique/Findings/Impression: Limited sonographic evaluation of the abdomen was performed to assess for ascites. There is trace ascites detected.
--- NOTE | 2024-10-09 09:52 | DVHPN2 ---
Progress Note Date Seen: Oct 09, 2024 Medical Necessity Reason Pt with a Central, PICC or Fol: Yes The following are medically ne: Castrejon Catheter Subjective Patient reports: No new complaints Review of Systems: HEENT:Normal, CVS:Normal, RESPIRATORY:Normal, GI:Normal, :Normal, MSK:Normal, NEURO:Normal Objective vital signs Vital Sign Date Time Temp Pulse Resp B/P (MAP) Pulse Ox O2 Delivery O2 Flow Rate FiO2 10/09/24 08:46 98.0 67 17 115/45 (68) 100 98.0 10/08/24 20:00 Room Air* 0 21 Total Intake and Output 10/08/24 10/08/24 10/09/24 15:00 23:00 07:00 Intake Total 1560 ml 822 ml Output Total 2150 ml 875 ml 850 ml Balance -2150 ml 685 ml -28 ml medications Current Medications Medications Dose Ordered Sig/Anna Route Start Time Stop Time Status Last Admin Dose Admin Lactulose 30 ml DAILY PO 10/07/24 10:00 10/08/24 10:23 30 ML Sodium Chloride 10 ml Q8HR IV 10/06/24 22:00 10/09/24 06:04 10 ML Acetaminophen/ Hydrocodone Bitart 1 tab Q4HP PRN PO 10/06/24 16:15 10/08/24 13:43 1 TAB Ondansetron HCl 4 mg Q4HP PRN IV 10/06/24 16:15 Docusate Sodium 100 mg BIDPRN PRN PO 10/06/24 16:15 Multivitamins 1 tab DAILY PO 10/07/24 10:00 10/08/24 10:23 1 TAB Octreotide Acetate 100 mcg TID SUBCUT 10/07/24 14:00 10/09/24 06:05 100 MCG Bumetanide 1 mg QAM IV 10/09/24 07:00 10/09/24 06:05 1 MG Pantoprazole Sodium 40 mg DAILY@0600 PO 10/09/24 06:00 10/09/24 06:06 40 MG Examination: GENERAL:Normal, HEENT:Normal, NECK:Normal, LUNGS:Normal, CVS:Normal, ABDOMEN:Normal, MSK:Normal, MSK:Abnormal (EDEMA+), SKIN:Normal, NEURO:Normal, :Normal laboratory and microbiology Laboratory Tests 10/09/24 07:22 10/08/24 06:51 Test 10/09/24 07:22 Range/Units Serum Glucose 102 74-106 mg/dL Problem List/Assessment/Plan Problem List/Assessment/Plan #1 fluid overload/acute on chronic diastolic heart failure: bumex #2 liver cirrhosis/metabolic liver disease #3 acute renal failure ?vasomotor nephropathy #4 ? ascites: paracentesis #5 obesity #6 anemia/thrombocytopenia #7 hyperkalemia: improved #8 mod protein malnutrition advance care planning- wishes to be dnr- time spent 21 mins Plan discussed with: Patient My Orders My Orders Orders - LUCIA HUNTER MD Procedure Category Date Status Time Bumetanide Injection PHA 10/09/24 In Process (Bumex Injection) 07:00 Pantoprazole Tablet PHA 10/09/24 In Process (Protonix Tablet) 06:00 Pt Request For Service PT 10/08/24 Logged 09:54 * [employer] Work[employer] Helper CONS 10/09/24 Verified Consult Discontinue Tele RAMAKRISHNA 10/09/24 Verified 09:49 Transfer Orders XFER 10/09/24 Verified 09:49 Spironolactone PHA 10/09/24 Verified (Aldactone) 10:00 Spironolactone PHA 10/09/24 Verified (Aldactone) 10:00 Dietary Evaluation Review Comments: To avoid uremic syndrome, encouarge Renal Specific Protein 37 restriction diet. The dietary prtein may be increased to 50-61 gram once pt is on routine dialysis. Tight sodium control for preventing edema. Expected Outcomes/Goals: Improved nutrition status. Date of Service: Oct 09, 2024 Billing Provider: LUCIA HUNTER MD Common Visit Codes: [id number] INP/OBS CARE(HIGH) LUCIA HUNTER MD Oct 09, 2024 09:52
[2024-10-09] MEDS: SPIRONOLACTONE 25 MG TAB PO ONE (10:50)
[2024-10-09] MEDS: SPIRONOLACTONE 25 MG TAB PO SCH (10:58)
--- NOTE | 2024-10-09 13:26 | DVHPN2 ---
Progress Note Date Seen: Oct 09, 2024 Medical Necessity Reason Pt with a Central, PICC or Fol: Yes The following are medically ne: Castrejon Catheter Subjective Patient reports: Feels better Objective vital signs Vital Sign Date Time Temp Pulse Resp B/P (MAP) Pulse Ox O2 Delivery O2 Flow Rate FiO2 10/09/24 12:50 97.6 69 17 102/41 (61) 98 97.6 10/09/24 08:00 Room Air* 0 21 Total Intake and Output 10/08/24 10/08/24 10/09/24 15:00 23:00 07:00 Intake Total 1560 ml 822 ml Output Total 2150 ml 875 ml 850 ml Balance -2150 ml 685 ml -28 ml medications Current Medications Medications Dose Ordered Sig/Anna Route Start Time Stop Time Status Last Admin Dose Admin Lactulose 30 ml DAILY PO 10/07/24 10:00 10/09/24 10:49 30 ML Sodium Chloride 10 ml Q8HR IV 10/06/24 22:00 10/09/24 06:04 10 ML Acetaminophen/ Hydrocodone Bitart 1 tab Q4HP PRN PO 10/06/24 16:15 10/08/24 13:43 1 TAB Ondansetron HCl 4 mg Q4HP PRN IV 10/06/24 16:15 Docusate Sodium 100 mg BIDPRN PRN PO 10/06/24 16:15 Multivitamins 1 tab DAILY PO 10/07/24 10:00 10/09/24 10:49 1 TAB Octreotide Acetate 100 mcg TID SUBCUT 10/07/24 14:00 10/09/24 06:05 100 MCG Bumetanide 1 mg QAM IV 10/09/24 07:00 10/09/24 06:05 1 MG Pantoprazole Sodium 40 mg DAILY@0600 PO 10/09/24 06:00 10/09/24 06:06 40 MG Spironolactone 25 mg DAILY PO 10/09/24 10:00 Examination: GENERAL:Abnormal, ABDOMEN:Abnormal, SKIN:Abnormal, NEURO:Normal laboratory and microbiology Laboratory Tests 10/09/24 07:22 10/08/24 06:51 Test 10/09/24 07:22 Range/Units Serum Glucose 102 74-106 mg/dL Microbiology Date/Time Source Procedure Growth Status 10/08/24 15:23 Sacrum Gram Stain - Final Resulted 10/08/24 15:23 Sacrum Wound Culture - Preliminary Resulted Problem List/Assessment/Plan Problem List/Assessment/Plan Acute kidney injury secondary to fluid overload: prerenal Cirrhosis versus CHF as cause of fluid overload Hyperkalemia likely in the setting of acute kidney injury and spironolactone Hypervolemia Fatty liver disease with cirrhosis; anemia and thrombocytopenia edema better UF nearly 4.7L cr worsened in setting of poor fluid mobilization. agree with reducing diuretics. Can convert to po regime soon Aldactone on hold Ultrasound of the kidney unremarkable Recommend considering new ultrasound of the heart to evaluate cardiac function Currently on Bumex we will continue Strict Is&Os Plan discussed with: Patient Dietary Evaluation Review Comments: To avoid uremic syndrome, encouarge Renal Specific Protein 37 restriction diet. The dietary prtein may be increased to 50-61 gram once pt is on routine dialysis. Tight sodium control for preventing edema. Expected Outcomes/Goals: Improved nutrition status. FABRICE GARCIA MD Oct 09, 2024 13:26
[2024-10-10] VITALS (7 sets, daily range): BP systolic 105–107; BP diastolic 44–49; PULSE 65–69; RESP 16–17; TEMP 97.6–98.5; O2SAT 91–98
[2024-10-10 06:47] LABS: Anion Gap 7 (5-15); Carbon Dioxide 26 mmol/L (20-31); Chloride 102 mmol/L (98-107); Potassium 4.6 mmol/L (3.5-5.1)
[2024-10-10 06:48] LABS: Calcium 8.6 mg/dL (8.7-10.4); Sodium 135 mmol/L (136-145)
[2024-10-10 06:53] LABS: BUN/Creatinine Ratio 20.3 (10.0-20.0); Glucose 79 mg/dL (74-106)
[2024-10-10 06:54] LABS: Blood Urea Nitrogen 29 mg/dL (9-23)
[2024-10-10] MEDS: BUMETANIDE 1 MG TAB PO SCH (08:29)
[2024-10-10] MEDS ORDERED: SPIR25TA PO (13:40)
[2024-10-10] MEDS ORDERED: BUM1T PO (13:40)
--- NOTE | 2024-10-10 17:01 | DVHDSRES ---
Discharge Summary Date of Admission Resident Creating Document: RAN MARIE RESIDENT Oct 06, 2024 at 16:21 Date of Discharge: Oct 10, 2024 Admitting Diagnosis Hepatic encephalopathy Labs/Diagnostic Data: Laboratory Results Test 10/10/24 04:29 10/08/24 06:51 10/07/24 05:12 10/06/24 15:46 Sodium Level 135 mmol/L (136-145) Potassium Level 4.6 mmol/L (3.5-5.1) Chloride Level 102 mmol/L (98-107) Carbon Dioxide Level 26 mmol/L (20-31) Anion Gap 7 (5-15) Blood Urea Nitrogen 29 mg/dL (9-23) Creatinine 1.43 mg/dL (0.550-1.02) Glomerular Filtration Rate Calc 40 mL/min (>90) BUN/Creatinine Ratio 20.3 (10.0-20.0) Serum Glucose 79 mg/dL (74-106) Calcium Level 8.6 mg/dL (8.7-10.4) White Blood Count 4.7 10^3/uL (4.4-10.8) Red Blood Count 2.70 10^6/uL (4.0-5.20) Hemoglobin 9.7 g/dL (12.2-16.2) Hematocrit 29.1 % (36.0-46.0) Mean Corpuscular Volume 107.7 fL (80.0-100.0) Mean Corpuscular Hemoglobin 35.8 pg (28.0-32.0) Mean Corpuscular Hemoglobin Concent 33.2 g/dL (32.0-36.0) Red Cell Distribution Width 14.3 % (11.8-14.3) Platelet Count 76 10^3/uL (140-450) Mean Platelet Volume 8.0 fL (6.9-10.8) Neutrophils (%) (Auto) 70.1 % (37.0-80.0) Lymphocytes (%) (Auto) 11.0 % (10.0-50.0) Monocytes (%) (Auto) 10.1 % (0.0-12.0) Eosinophils (%) (Auto) 5.0 % (0.0-7.0) Basophils (%) (Auto) 3.8 % (0.0-2.0) Neutrophils # (Auto) 3.3 10 ^3/uL (1.6-8.6) Lymphocytes # (Auto) 0.5 10 ^3/uL (0.4-5.4) Monocytes # (Auto) 0.5 10 ^3/uL (0-1.3) Eosinophils # (Auto) 0.2 10 ^3/uL (0-0.8) Basophils # (Auto) 0.2 10 ^3/uL (0-0.2) Nucleated Red Blood Cells 0.2 % Prothrombin Time 13.7 sec (9.3-11.8) Prothrombin Time INR 1.33 (0.9-1.15) Activated Partial Thromboplast Time 36.5 SEC (24.5-34.5) Total Bilirubin 5.2 mg/dL (0.2-1.0) Aspartate Amino Transferase (AST) 49 U/L (13-40) Alanine Aminotransferase (ALT) 32 U/L (7-40) Alkaline Phosphatase 125 U/L (46-116) Total Protein 5.4 g/dL (5.7-8.2) Albumin 2.5 g/dL (3.2-4.8) Vitamin B12 Level 1120 pg/mL (211-911) Thyroid Stimulating Hormone (TSH) 0.44 uIU/mL (0.55-4.78) Magnesium Level 2.2 mg/dL (1.6-2.6) B-Type Natriuretic Peptide 127.38 pg/mL (0-100) Urine Color Yellow (Yellow) Urine Clarity Clear (Clear) Urine pH 5.0 (5.0-9.0) Urine Specific [place] 1.012 (1.001-1.035) Urine Protein Negative (Negative) Urine Ketones Negative (Negative) Urine Blood Negative /uL (Negative) Urine Nitrite Negative (Negative) Urine Bilirubin Negative (Negative) Urine Urobilinogen Normal mg/dL (Negative) Urine Leukocyte Esterase Negative /uL (Negative) Urine RBC 1 /hpf (0 - 4) Urine Microscopic WBC 1 /HPF (0-5) Urine Squamous Epithelial Cells Few /hpf (<5) Urine Bacteria None seen /hpf (None Seen) Urine Hyaline Casts Mod /lpf (0 - 2) Urine Glucose Normal mg/dL (Normal) Test 10/06/24 13:30 Ammonia 18 umol/L (11-32) Troponin I High Sensitivity 4 ng/L (</=34) Other Laboratory Tests 10/10/24 04:29 10/08/24 06:51 Brief Hx & Hospital Course: This is a 69-year-old female who presented to [facility] ED with complaint of bilateral lower extremity swelling for the past 2 weeks. Past Medical History: Anemia, CHF, Gallstones, GERD, Liver Past Surgical History: Tubal Ligation Family History: Reviewed, noncontributory to the management of this case. Past Social History: The patient lives at home, denies smoking, alcohol or illicit drugs abuse. Patient reports symptoms progressively get worse with difficulty to ambulate, periods of confusion, getting worse that prompted this visit. Patient was seen and evaluated in the ED, laboratory data shows WBC 6.9, hemoglobin 10.3, hematocrit 30.2, platelets 105, sodium 138, potassium 5.6, BUN 42, creatinine 1.89, GFR 29, glucose 106, AST 70, ALT 41, troponin 4, protein 5.6, albumin 2.5, ammonia 18. Chest x-ray show no acute disease. Patient was started on IV Bumex given congestive heart failure. Patient was also continued on Aldactone due to her volume overload on liver cirrhosis. However she went into JOSE ALBERTO. Diuretics were held. Nephrology was consulted. Patient had small volume ascites. Patient has had significant clinical improvement in the next couple of days, kidney function started to improve. Patient states feeling much better than on admission. Diuretics with restarted. On my assessment, patient was seen and examined at bedside. She currently states feeling well, denies any significant shortness of breath, chest pain, abdominal pain, dysuria, nausea, vomiting, diarrhea, constipation, dizziness, lightheadedness. She's currently tolerating diet. Physical examination as below: General: Awake, alert, comfortable appearing, in no acute distress. HEENT: Head is normocephalic and atraumatic. Pupils are equal, round, and reactive to light. Extraocular muscles are intact. No nasal discharge. No facial trauma. Intraoral exam shows moist mucous membranes with no tonsillar enlargement or exudate. Neck: Supple with no cervical lymphadenopathy. Heart: Regular rate without murmur, rub, or gallop. Lungs: Equal breath sounds bilaterally with no wheezing, rales, or rhonchi. There is no chest wall tenderness or instability. Abdomen: No external sign of injury. Bowel sounds are present. Abdomen is soft, nontender. distended Extremities: Strong peripheral pulses. There is no clubbing, no cyanosis, and mild peripheral edema Skin: Sacral ulcer poa Neurologic: Cranial nerves II-XII intact without motor, sensory, or cerebellar deficit, no asterixis. Patient will be discharge home, she will continue home medications as prescribed. Continue bumex, aldactone. She will follow-up with PCP in 1-2 weeks. Patient verbalized understanding and agree with the DC plan, we spent over 30 minutes explaining the plan. Case was discussed with dr. ortiz Consults/Reason for consult Nephrology was consulted due to JOSE ALBERTO Operations or Procedures [place] [address] Ph: [phone] DIAGNOSTIC IMAGING Diagnostic Imaging Report : [id number] Signed PATIENT: KALPESH KELLOGG ACCT: [id number] UNIT: [id number] : 1955 LOC: ER ROOM / BED: / AGE / SEX: 69 / F ADM STATUS: REG ER SERVICE 1302 ORDERING PHYSICIAN: EDGARD APARICIO MD PROCEDURE(s): CXRP - CHEST PORTABLE REASON: sob ORDER NUMBER(s): [id number], ACCESSION NUMBER(s): [id number] CHEST RADIOGRAPH Indication: sob Technique: Single frontal view of the chest was obtained COMPARISON: XY CHEST PORTABLE on DOS: 09/17/24, XY CHEST PORTABLE on DOS: 05/07/24, XY CHEST PORTABLE on DOS: 02/06/24, XY CHEST XRAY 1 VIEW on DOS: 12/19/23, XY CHEST PORTABLE on DOS: 12/11/23 FINDINGS: Lines and Tubes: None Lungs: Clear Pleura: No effusion. No pneumothorax. Cardiomediastinal contours: Unremarkable Bones: Unremarkable IMPRESSION: No acute disease. ATED BY: DONATO CROWLEY MD DICTATED DATE/TIME: 10/06/24 1325 SIGNED BY: DONATO CROWLEY MD SIGNED DATE/TIME: 10/06/24 1325 CC: [address] [id number] Ph: [phone] DIAGNOSTIC IMAGING Diagnostic Imaging Report : [id number] Signed PATIENT: KALPESH KELLOGG ACCT: [id number] UNIT: [id number] : 1955 [facility] AGE / SEX: 69 / F ADM STATUS: ADM IN SERVICE 1011 ORDERING PHYSICIAN: BENJAMIN ORTIZ MD PROCEDURE(s): ABDL - ABDOMEN LIMITED REASON: FLUID CHECK ORDER NUMBER(s): [id number], ACCESSION NUMBER(s): [id number] US ABDOMEN LIMITED HISTORY: FLUID CHECK COMPARISON: US ABDOMEN LIMITED on DOS: 05/07/24, US ABDOMEN LIMITED on DOS: 02/07/24 TECHNIQUE: Transverse and longitudinal sonographic images were obtained of all four quadrants of the abdomen and pelvis. FINDINGS: IMPRESSION: Small volume of ascites. ATED BY: HANS LEONARDO MD DICTATED DATE/TIME: 10/07/24 1117 SIGNED BY: HANS LEONARDO MD SIGNED DATE/TIME: 10/07/24 1117 CC: [place] [address] Ph: [phone] DIAGNOSTIC IMAGING Diagnostic Imaging Report : [id number] Signed PATIENT: KALPESH KELLOGG ACCT: [id number] UNIT: [id number] : 1955 [facility] AGE / SEX: 69 / F ADM STATUS: ADM IN SERVICE 1117 ORDERING PHYSICIAN: FABRICE GARCIA MD PROCEDURE(s): KIDUS - KIDNEY REASON: JOSE ALBERTO ORDER NUMBER(s): [id number], ACCESSION NUMBER(s): [id number] RENAL ULTRASOUND CLINICAL HISTORY: JOSE ALBERTO TECHNIQUE: Multiple ultrasound images of the kidneys and bladder were obtained. COMPARISON: None FINDINGS: The right kidney measures 10.8 cm in length. The left kidney measures 9.3 cm. The kidneys appear echogenic compatible with medical renal disease. There is no evidence of nephrolithiasis or hydronephrosis. There is a Castrejon catheter in the bladder which is decompressed. IMPRESSION: 1. Kidneys appear echogenic compatible with medical renal disease. HS:Y ATED BY: LEMUEL SIMON MD DICTATED DATE/TIME: 10/07/241340 SIGNED BY: LEMUEL SIMON MD SIGNED DATE/TIME: 10/07/241340 CC: [place] [address] Ph: [phone] DIAGNOSTIC IMAGING Diagnostic Imaging Report : [id number] Signed PATIENT: KALPESH KELLOGG ACCT: [id number] UNIT: [id number] : 1955 LOC: CENTRAL ROOM / BED: [facility] / [facility] AGE / SEX: 69 / F ADM STATUS: ADM IN SERVICE 5 ORDERING PHYSICIAN: DONATO CROWLEY MD PROCEDURE(s): ABDL - ABDOMEN LIMITED REASON: FLUID CHECK FOR POSSIBLE PARACENTESIS ORDER NUMBER(s): [id number], ACCESSION NUMBER(s): [id number] Limited Abdominal Ultrasound - Ascites Evaluation Clinical History: FLUID CHECK FOR POSSIBLE PARACENTESIS Comparison: US ABDOMEN LIMITED on DOS: 10/07/24, US ABDOMEN LIMITED on DOS: 05/07/24, US ABDOMEN LIMITED on DOS: 02/07/24 Technique/Findings/Impression: Limited sonographic evaluation of the abdomen was performed to assess for ascites. There is trace ascites detected. ATED BY: DONATO CROWLEY MD DICTATED DATE/TIME: 10/09/24818 SIGNED BY: DONATO CROWLEY MD SIGNED DATE/TIME: 10/09/24818 CC: Condition at Discharge: Guarded Final Diagnosis/Problems List acute on chronic diastolic heart failure liver cirrhosis/metabolic liver disease acute renal failure ?vasomotor nephropathy ascities obesity anemia/thrombocytopenia hyperkalemia: improved mod protein malnutrition Discharge Disposition: Home with Health Services Discharge Instruct/Medications Diet: Cardiac 2g Na,low cholest Activity: No Restrictions, As Tolerated Follow Up/Referral: fu with pcp in 1-2 weeks Medications: continue home meds Discharge Statement: "Patient was advised to return to the ER or call 911 if any headaches, dizziness, shortness of breath, chest pain, abdominal pain, bleeding, fevers, or worsening of medical condition. Patient was counseled about treatment plan, medications, possible side effects, patientverbalized understanding. All questions were answered to the best of my ability. This discharge took greater then 30 minutes in planning, reviewing documentation, counseling the patient, and discussing with other team members." ASSESSMENT ASSESSMENT Assessment hepatic encephalopathy RAN MARIE RESIDENT Oct 10, 2024 17:01
== END 2024-10-10 17:50 | disposition home health service (06) | DRG 291 ==
LOC: EDBD 12:45 → ER 12:45 → OVERFLOW 16:21 → CENTRAL 23:36 → TELE-CENTR 10-07 05:59 → CENTRAL 10-07 16:16
PROVIDERS: ADMIT Internal Medicine; ATTEND Internal Medicine
PROC: 05HC33Z Insertion of Infusion Device into Left Basilic Vein, Percutaneous Approach (ICD-10-PCS; principal; 2024-10-06)
PROC: B54NZZA Ultrasonography of Left Upper Extremity Veins, Guidance (ICD-10-PCS; 2024-10-06)
DX: I13.0 Hypertensive heart and chronic kidney disease with heart failure and stage 1 through stage 4 chronic kidney disease, or unspecified chronic kidney disease (principal); I50.33 Acute on chronic diastolic (congestive) heart failure; N17.0 Acute kidney failure with tubular necrosis; R18.8 Other ascites; E44.0 Moderate protein-calorie malnutrition; K76.82 Hepatic encephalopathy; Z66 Do not resuscitate; D69.6 Thrombocytopenia, unspecified; L89.159 Pressure ulcer of sacral region, unspecified stage; E87.5 Hyperkalemia; K74.60 Unspecified cirrhosis of liver; K21.9 Gastro-esophageal reflux disease without esophagitis; D64.9 Anemia, unspecified; N18.9 Chronic kidney disease, unspecified; K76.0 Fatty (change of) liver, not elsewhere classified; E66.9 Obesity, unspecified; Z79.2 Long term (current) use of antibiotics; Z79.899 Other long term (current) drug therapy; Z98.51 Tubal ligation status; Z68.34 Body mass index [BMI] 34.0-34.9, adult
CPT/HCPCS: 36415; 71045; 76705; 76775; 80048; 80053; 81001; 82140; 82607; 83735; 83880; 84132; 84443; 84484; 85025; 85610; 85730; 87205; 94640; 96365; 96375; 97163; 99291; 99292; G0378; J3490; P9047

== ENCOUNTER 2024-10-29 08:12 | Inpatient (IN) | payer MEDICARE, MEDICAID ==
[~2024-10-29] VITALS: Ht 170.2 cm; Wt 107.3 kg
[~2024-10-29 08:12] MED LIST changes: +BUM1T PO; -BUME1TAB3 PO; -CEFP200T15 PO; -CIPR250T3 PO; -FURO20TA4 PO; +FURO40TA4 PO; -LACT10SO3 PO; +MAGN241.4 PO; -MET500T PO; -NYS15PW TOP; +OMEP-448 PO; -RIFA550T PO; -SPIR100T4 PO
--- NOTE | 2024-10-29 09:07 | ED.PDOC ---
History of Present Illness HPI Comments 69Y F with PMHx CHF, anemia, and hyperammonemia presents to ED via EMS with chief complaint confusion. Pt is a poor historian and is confused during time of assessment. Pt states her daughter mentioned she may have high ammonia levels and she has a liver disease. No other symptoms or history reported. Chief Complaint: Confusion Time Seen by MD: 08:51 Primary Care Provider: Galina Milan Notes: Nurses Notes, Management Consultant Notes, Medications, Allergies Allergies: Coded Allergies: NO KNOWN ALLERGIES (Unverified , 12/04/23) Home Meds Active Scripts Spironolactone (Aldactone) 25 Mg Tab, 25 MG PO DAILY for 30 Days, #30 TAB 2 Refills Prov:RAN MARIE RESIDENT 10/10/24 Bumetanide (Bumex Tablet) 1 Mg Tab, 1 MG PO BIDD for 30 Days, #60 TAB 2 Refills Prov:RAN MARIE RESIDENT 10/10/24 Reported Medications Lactulose (Constulose) 10 Gm/15 Ml Katelynn, 30 ML PO DAILY for 30 Days, #900 10/08/24 Potassium Chloride (Potassium Chloride ER) 20 Meq Tab, 20 MEQ PO DAILY WITH FOOD, TAB 02/08/24 Information Source: Patient, Emergency Med Personnel Mode of Arrival: EMS Severity: Moderate Timing: Hours Duration: Since onset Prehospital treatment: Other (zofran) Past Medical History PAST MEDICAL HISTORY: Anemia, CHF, Gallstones, GERD, Liver Surgical History: Tubal Ligation ADMINISTRATIVE OFFICE CLERK History: No Pertinent ADMINISTRATIVE OFFICE CLERK History Family History Family History: Reviewed,noncontributory to illness, No family hx of Cancer, No family hx of DM, No family hx of Heart pedro, No family hx of HTN, No family hx ofKidney pedro, No family hx of Liver pedro, No family hx of Lung pedro, No family hx of Stroke Social History Smoker: Non-Smoker Alcohol: Denies ETOH Use Drugs: Denies Drug Use Lives In: Home Constitutional: reports: weakness, others (confusion); denies: chills, d iaphoresis, fatigue, fever, malaise, sweats EENTM: denies: blurred vision, double vision, ear bleeding, ear discharge, ear drainage, ear pain, ear ringing, eye pain, eye redness, hearing loss, mouth pain, mouth swelling, nasal discharge, nose bleeding, nose congestion, nose pain, photophobia, tearing, throat pain, throat swelling, voice changes, others Respiratory: denies: cough, hemoptysis, orthopnea, SOB at rest, shortness of breath, SOB with excertion, stridor, wheezing, others Cardiovascular: denies: chest pain, dizzy spells, diaphoresis, Dyspnea on exertion, edema, irregular heart beat, left arm pain, lightheadedness, palpitations, PND, syncope, others Gastrointestinal: denies: abdomen distended, abdominal pain, blood streaked bowels, constipated, diarrhea, dysphagia, difficulty swallowing, hematemesis, melena, nausea, poor appetite, poor fluid intake, rectal bleeding, rectal pain, vomiting, others Genitourinary: denies: abnormal vagina bleeding, burning, dyspareunia, dysuria, flank pain, frequency, hematuria, incontinence, pain, , vagina discharge, urgency, others Neurological: reports: others (confusion); denies: dizziness, fainting, headache, left sided numbness, left sided weakness, numbness, paresthesia, pre- existing deficit, right sided numbness, right sided weakness, seizure, speech problems, tingling, tremors, weakness Musculoskeletal: denies: back pain, gout, joint pain, joint swelling, muscle pain, muscle stiffness, neck pain, others Integumetry: denies: bruises, change in color, change in hair/nails, dryness, laceration, lesions, lumps, rash, wounds, others Allergic/Immunocompromised: denies: Difficulty Healing, Frequent Infections, Hives, Itching, others Hematologic/Lymphatic: denies: anemia, blood clots, easy bleeding, easy bruising, swollen glands, others Endocrine: denies: excessive hunger, excessive sweating, excessive thirst, excessive urination, flushing, intolerance to cold, intolerance to heat, unexplained weight gain, unexplained weight loss, others Psychiatric: denies: anxiety, bipolar disorder, depression, hopeless, panic disorder, schizophrenia, sleepless, suicidal, others All Other Systems: Reviewed and Negative Physical Exam General Appearance: No Apparent Distress, Normal, Other (confused) HEENT: Normal ENT Inspection, Pharynx Normal, TMs Normal Neck: Full Range of Motion, Non-Tender, Normal, Normal Inspection Respiratory: Chest Non-Tender, Lungs Clear, No Accessory Muscle Use, No Respiratory Distress, Normal Breath Sounds Cardiovascular: No Edema, No JVD, No Murmur, No Gallop, Normal Peripheral Pulses, Regular Rate/Rhythm Breast Exam: Deferred Gastrointestinal: No Organomegaly, Non Tender, No Pulsatile Mass, Normal Bowel Sounds, Soft Genitalia: Deferred Pelvic: Deferred Rectal: Deferred Extremities: No calf tenderness, Normal capillary refill, Normal inspection, Normal range of motion, Non-tender, No pedal edema Musculoskeletal : Apperance: Normal Neurologic: Alert, supply chain manager II-XII nml as Tested, No Motor Deficits, Normal Affect, Normal Mood, No Sensory Deficits, Other (confused) Cerebellar Function: NOT DONE Reflexes: NOT DONE Skin: Dry, Normal Color, Warm Lymphatic: No Adenopathy Was a procedure done? Was a procedure done?: No Differential Dx Considerations may include: Metabolic encephalopathy, ACS, CVA, viral syndrome, urinary tract infection, hepatic encephalopathy X-Ray, Labs, Meds, VS Vital Signs Date Time Temp Pulse Resp B/P (MAP) Pulse Ox O2 Delivery O2 Flow Rate FiO2 10/29/24 08:25 73 10/29/24 08:20 98.1 78 20 107/53 (71) 98 98.1 Lab Test 10/29/24 10:06 10/29/24 08:24 Range/Units White Blood Count 6.4 4.4-10.8 10^3/uL Red Blood Count 3.18 L 4.0-5.20 10^6/uL Hemoglobin 10.6 L 12.2-16.2 g/dL Hematocrit 31.9 L 36.0-46.0 % Mean Corpuscular Volume 100.5 H 80.0-100.0 fL Mean Corpuscular Hemoglobin 33.3 H 28.0-32.0 pg Mean Corpuscular Hemoglobin Concent 33.2 32.0-36.0 g/dL Red Cell Distribution Width 13.8 11.8-14.3 % Platelet Count 109 L 140-450 10^3/uL Mean Platelet Volume 8.1 6.9-10.8 fL Neutrophils (%) (Auto) 81.4 H 37.0-80.0 % Lymphocytes (%) (Auto) 6.5 L 10.0-50.0 % Monocytes (%) (Auto) 11.1 0.0-12.0 % Eosinophils (%) (Auto) 0.8 0.0-7.0 % Basophils (%) (Auto) 0.2 0.0-2.0 % Neutrophils # (Auto) 5.2 1.6-8.6 10 ^3/uL Lymphocytes # (Auto) 0.4 0.4-5.4 10 ^3/uL Monocytes # (Auto) 0.7 0-1.3 10 ^3/uL Eosinophils # (Auto) 0.1 0-0.8 10 ^3/uL Basophils # (Auto) 0 0-0.2 10 ^3/uL Nucleated Red Blood Cells 0.0 % Sodium Level 132 L 136-145 mmol/L Potassium Level 4.5 3.5-5.1 mmol/L Chloride Level 99 98-107 mmol/L Carbon Dioxide Level 26 20-31 mmol/L Anion Gap 7 5-15 Blood Urea Nitrogen 31 H 9-23 mg/dL Creatinine 1.34 H 0.550-1.02 mg/dL Glomerular Filtration Rate Calc 43 >90 mL/min BUN/Creatinine Ratio 23.1 H 10.0-20.0 Serum Glucose 95 74-106 mg/dL Lactic Acid Level 1.8 0.4-2.0 mmol/L Calcium Level 8.8 8.7-10.4 mg/dL Total Bilirubin 4.8 H 0.2-1.0 mg/dL Aspartate Amino Transferase (AST) 64 H 13-40 U/L Alanine Aminotransferase (ALT) 36 7-40 U/L Alkaline Phosphatase 166 H 46-116 U/L Ammonia 68 H 11-32 umol/L Troponin I High Sensitivity 4 </=34 ng/L Total Protein 5.4 L 5.7-8.2 g/dL Albumin 2.3 L 3.2-4.8 g/dL Lipase 34 12-53 U/L POC Glucose 80 70-106 mg/dl [address] [address] Ph: [phone] DIAGNOSTIC IMAGING Diagnostic Imaging Report : [id number] Signed PATIENT: KALPESH KELLOGG ACCT: [id number] UNIT: [id number] : 1955 LOC: ER ROOM / BED: / AGE / SEX: 69 / F ADM STATUS: REG ER SERVICE 0929 ORDERING PHYSICIAN: FELICIA MCLAIN MD PROCEDURE(s): HWOCT - HEAD WITHOUT CONTRAST REASON: ams ORDER NUMBER(s): [id number], ACCESSION NUMBER(s): [id number] EXAM: CT HEAD WITHOUT CONTRAST INDICATION: ams TECHNIQUE: CT of the head without intravenous contrast. Coronal and sagittal reformatted images are submitted. Radiation Dose : 1. Head: CT Dose: CTDI volume is 64.89 mGy. Dose-length product is 1278.56 mGy*cm The dose indicators for CT are the volume Computed Tomography (CT) Dose Index (CTDIvol) and the Dose Length Product (DLP), and are measured in units of mGy and mGy-cm, respectively. These indicators are not patient dose, but values generated from the CT scanner acquisition factors. The report includes radiation exposure data for exposures received during this examination. All CT scans at this medical facility are performed using dose modulation techniques as appropriate to a performed exam including the following: Automated exposure control was utilized; adjustment of the MA and/or KV according to patient size; and use of iterative reconstruction technique. COMPARISON: CT HEAD WITHOUT CONTRAST on DOS: 09/17/24, CT HEAD WITHOUT CONTRAST on DOS: 05/07/24 FINDINGS: There is no evidence of acute intracranial hemorrhage, extra-axial collection, mass effect, midline shift, herniation or hydrocephalus. The ventricles, sulci and cisterns are age appropriate. The eaton-white differentiation is intact. The visualized paranasal sinuses and mastoid air cells are clear. No depressed calvarial fracture. The surrounding soft tissues are unremarkable. IMPRESSION: 1. No evidence of acute intracranial abnormality. ATED BY: ANANTH ALONZO MD DICTATED DATE/TIME: 10/29/24 1021 SIGNED BY: ANANTH ALONZO MD SIGNED DATE/TIME: 10/29/24 1021 CC: Time of 1ST Reevaluation: 09:21 Reevaluation 1ST: Unchanged Patient Education/Counseling: Diagnosis, Treatment Family Education/Counseling: No Family Present Departure 1 Departure Time of Disposition: 11:21 (Patient with worsening confusion and elevated ammonia level. Patient likely suffering from hepatic encephalopathy. Patient's CT scan is benign. We will admit patient for further workup and expert consultation) Impression: Primary Impression: Hepatic encephalopathy Additional Impression: Generalized weakness Disposition: ADMITTED INPATIENT Admit to: Med Surg Condition: Serious Critical Care Note Critical Care Time?: Yes Critical care comment: Altered mental status Authorized and Performed by: Felicia Mclain MD Total critical care time: Approximately 39 minutes Due to a high probability of clinically significant, life threatening deterioration, the patient required my highest level of preparedness to intervene emergently and I personally spent this critical care time directly and personally managing the patient. This critical care time included obtaining a history; examining the patient; pulse oximetry; ordering and review of studies; arranging urgent treatment with development of a management plan; evaluation of patient's response to treatment; frequent reassessment; and, discussions with other providers. This critical care time was performed to assess and manage the high probability of imminent, life-threatening deterioration that could result in multi-organ failure. It was exclusive of separately billable procedures and treating other patients and teaching time. Please see my other sections and the rest of the note for further information on patient assessment and treatment. Stability Stability form required: No Heart Score Heart Score: Heart Score Response (Comments) Value History N/A 0 EKG N/A 0 Age N/A 0 Risk Factors N/A 0 Troponin N/A 0 Total 0 I personally scribed for FELICIA MCLAIN MD ([email or web address]) on 10/29/24 at 09:07. Electronically submitted by Rupinder Dorman ([facility]). I personally scribed for FELICIA MCLAIN MD ([email or web address]) on 10/29/24 at 11:16. Electronically submitted by Rupinder Dorman ([facility]). FELICIA MCLAIN MD Oct 29, 2024 09:07
--- NOTE | 2024-10-29 10:24 | DVH ---
EXAM: CT HEAD WITHOUT CONTRAST INDICATION: ams TECHNIQUE: CT of the head without intravenous contrast. Coronal and sagittal reformatted images are s ubmitted. Radiation Dose : 1. Head: CT Dose: CTDI volume is 64.89 mGy. Dose-length product is 1278.56 mGy*cm The dose indicators for CT are the volume Computed Tomography (CT) Dose Index (CTDIvol) and the Dose Length Product (DLP), and are measured in units of mGy and mGy-cm, respectively. These indicators are not patient dose, but values generated from the CT scanner acquisition factors. The report includes radiation exposure data for exposures received during this examination. All CT scans at this medical facility are performed using dose modulation techniques as appropriate to a performed exam including the following: Automated exposure control was utilized; adjustment of the MA and/or KV according to patient size; and use of iterative reconstruction technique. COMPARISON: CT HEAD WITHOUT CONTRAST on DOS: 09/17/24, CT HEAD WITHOUT CONTRAST on DOS: 05/07/24 FINDINGS: There is no evidence of acute intracranial hemorrhage, extra-axial collection, mass effect, midline s hift, herniation or hydrocephalus. The ventricles, sulci and cisterns are age appropriate. The eaton-white differentiation is intact. The visualized paranasal sinuses and mastoid air cells are clear. No depressed calvarial fracture. The surrounding soft tissues are unremarkable. IMPRESSION: 1. No evidence of acute intracranial abnormality.
[2024-10-29 10:39] LABS: Basophils # (auto) 0 10 ^3/uL (0-0.2); Basophils % (auto) 0.2 % (0.0-2.0); Eosinophils # (auto) 0.1 10 ^3/uL (0-0.8); Eosinophils % (auto) 0.8 % (0.0-7.0); Hematocrit 31.9 % (36.0-46.0); Hemoglobin 10.6 g/dL (12.2-16.2); Lymphocytes # (auto) 0.4 10 ^3/uL (0.4-5.4); Lymphocytes % (auto) 6.5 % (10.0-50.0); Mean Corpuscular Hemoglobin 33.3 pg (28.0-32.0); Mean Corpuscular Hgb Conc. 33.2 g/dL (32.0-36.0); Mean Corpuscular Volume 100.5 fL (80.0-100.0); Monocytes # (auto) 0.7 10 ^3/uL (0-1.3); Monocytes % (auto) 11.1 % (0.0-12.0); Neutrophils # (auto) 5.2 10 ^3/uL (1.6-8.6); Neutrophils % (auto) 81.4 % (37.0-80.0); Platelet Count (auto) 109 10^3/uL (140-450); Red Blood Cells 3.18 10^6/uL (4.0-5.20); Red Cell Distribution Width 13.8 % (11.8-14.3); White Blood Cell 6.4 10^3/uL (4.4-10.8)
[2024-10-29 10:54] LABS: Alanine Aminotransferase 36 U/L (7-40); Albumin 2.3 g/dL (3.2-4.8); Alkaline Phosphatase 166 U/L (46-116); Anion Gap 7 (5-15); Aspartate Aminotransferase 64 U/L (13-40); BUN/Creatinine Ratio 23.1 (10.0-20.0); Blood Urea Nitrogen 31 mg/dL (9-23); Calcium 8.8 mg/dL (8.7-10.4); Carbon Dioxide 26 mmol/L (20-31); Chloride 99 mmol/L (98-107); Glucose 95 mg/dL (74-106); Lipase 34 U/L (12-53); Potassium 4.5 mmol/L (3.5-5.1); Sodium 132 mmol/L (136-145); Total Protein 5.4 g/dL (5.7-8.2)
[2024-10-29 10:55] LABS: Bilirubin, Total 4.8 mg/dL (0.2-1.0)
[2024-10-29 11:34] VITALS: PULSE 70; RESP 16; O2SAT 97
[2024-10-29] MEDS ORDERED: SPIR50TA5 PO (12:06)
[2024-10-29] MEDS ORDERED: DOCUSATE SOD 100 MG CAP PO PRN (12:15)
--- NOTE | 2024-10-29 12:20 | DVHHP2 ---
History of Present Illness Reason for Visit: ALOC History of Present Illness Kezia Ji is a 69-year-old female with past medical history of liver cirrhosis, CHF, anemia, and hyperammonemia, who came in for ALOC. Per patient's family, they brought her to the hospital because she has been becoming more altered. Cardiovascular: CHF Heme/Onc: Anemia NOS Hepatobiliary: Cirrhosis Past Surgical History: Total hip replacement (left), Tubal Ligation Smoke: No ALCOHOL: none Drugs: None Lives: with Family Domestic Violence: Neg Review of Systems Constitutional: Yes: Weakness, Malaise; No: Fever, Chills, Sweats, Other Eyes: No: Pain, Vision change, Conjunctivae inflammation, Eyelid inflammation, Other, Redness ENT: No: Ear pain, Ear discharge, Nose pain, Nose discharge, Nose congestion, Mouth pain, Mouth swelling, Throat pain, Throat swelling, Other Respiratory: No: Cough, Dry, Shortness of breath, SOB with excertion, Wheezing, Hemoptysis, Pleuritic Pain, Sputum, Wheezing, Other Cardiovascular: No: Chest Pain, Palpitations, Orthopnea, Paroxysmal Noc. Dyspnea, Edema, Lt Headedness, Other Gastrointestinal: No: Nausea, Vomiting, Abdominal Pain, Diarrhea, Constipation, Melena, Hematochezia, Other Genitourinary: No Dysuria, No Frequency, No Incontinence, No Hematuria, No Retention, No Other Musculoskeletal: No: other, neck pain, shoulder pain, arm pain, back pain, hand pain, leg pain, foot pain Skin: No: Rash, Lesions, Jaundice, Bruising, Other Neurological: Other (ALOC); No: Weakness, Numbness, Incoordination, Change in speech, Confusion, Seizures Allergies: Coded Allergies: NO KNOWN ALLERGIES (Unverified , 12/04/23) Medications Current Medications Medications Dose Ordered Sig/Anna Route Start Time Stop Time Status Last Admin Dose Admin Sodium Chloride 10 ml Q8HR IV 10/29/24 14:00 UNV Acetaminophen/ Hydrocodone Bitart 1 tab Q4HP PRN PO 10/29/24 12:15 UNV Ondansetron HCl 4 mg Q4HP PRN IV 10/29/24 12:15 UNV Docusate Sodium 100 mg BIDPRN PRN PO 10/29/24 12:15 UNV Acetaminophen 650 mg Q6HP PRN PO 10/29/24 12:15 UNV Patient Own Medication 1 tab DAILY PO 10/30/24 10:00 UNV Lactulose 30 ml BID PO 10/29/24 22:00 UNV Exam Vital Signs Vital Signs Date Time Temp Pulse Resp B/P (MAP) Pulse Ox O2 Delivery O2 Flow Rate FiO2 10/29/24 11:34 70 16 97 Room Air* 0 21 10/29/24 11:34 98.0 105/37 (59) 98.0 General Appearance: Alert, Cooperative, mild distress, Other (slert to self) HEENT: Atraumatic, PERRLA, Mucous membr. moist/pink Respiratory: Clear to auscultation, Normal air movement Cardiovascular: Regular rate, Normal S1, Normal S2 Abdominal: Normal bowel sounds, Soft, No tenderness, No hepatospenomegaly Extremities: No clubbing, No cyanosis Skin: No rashes, No breakdown Neuro: Normal speech Psych/Mental Status: Mood NL Labs/Xrays Labs Test 10/29/24 11:15 10/29/24 10:06 10/29/24 08:24 Range/Units Troponin I High Sensitivity 3 L </=34 ng/L White Blood Count 6.4 4.4-10.8 10^3/uL Red Blood Count 3.18 L 4.0-5.20 10^6/uL Hemoglobin 10.6 L 12.2-16.2 g/dL Hematocrit 31.9 L 36.0-46.0 % Mean Corpuscular Volume 100.5 H 80.0-100.0 fL Mean Corpuscular Hemoglobin 33.3 H 28.0-32.0 pg Mean Corpuscular Hemoglobin Concent 33.2 32.0-36.0 g/dL Red Cell Distribution Width 13.8 11.8-14.3 % Platelet Count 109 L 140-450 10^3/uL Mean Platelet Volume 8.1 6.9-10.8 fL Neutrophils (%) (Auto) 81.4 H 37.0-80.0 % Lymphocytes (%) (Auto) 6.5 L 10.0-50.0 % Monocytes (%) (Auto) 11.1 0.0-12.0 % Eosinophils (%) (Auto) 0.8 0.0-7.0 % Basophils (%) (Auto) 0.2 0.0-2.0 % Neutrophils # (Auto) 5.2 1.6-8.6 10 ^3/uL Lymphocytes # (Auto) 0.4 0.4-5.4 10 ^3/uL Monocytes # (Auto) 0.7 0-1.3 10 ^3/uL Eosinophils # (Auto) 0.1 0-0.8 10 ^3/uL Basophils # (Auto) 0 0-0.2 10 ^3/uL Nucleated Red Blood Cells 0.0 % Sodium Level 132 L 136-145 mmol/L Potassium Level 4.5 3.5-5.1 mmol/L Chloride Level 99 98-107 mmol/L Carbon Dioxide Level 26 20-31 mmol/L Anion Gap 7 5-15 Blood Urea Nitrogen 31 H 9-23 mg/dL Creatinine 1.34 H 0.550-1.02 mg/dL Glomerular Filtration Rate Calc 43 >90 mL/min BUN/Creatinine Ratio 23.1 H 10.0-20.0 Serum Glucose 95 74-106 mg/dL Lactic Acid Level 1.8 0.4-2.0 mmol/L Calcium Level 8.8 8.7-10.4 mg/dL Total Bilirubin 4.8 H 0.2-1.0 mg/dL Aspartate Amino Transferase (AST) 64 H 13-40 U/L Alanine Aminotransferase (ALT) 36 7-40 U/L Alkaline Phosphatase 166 H 46-116 U/L Ammonia 68 H 11-32 umol/L Total Protein 5.4 L 5.7-8.2 g/dL Albumin 2.3 L 3.2-4.8 g/dL Lipase 34 12-53 U/L POC Glucose 80 70-106 mg/dl EXAM: CT HEAD WITHOUT CONTRAST FINDINGS: There is no evidence of acute intracranial hemorrhage, extra-axial collection, mass effect, midline shift, herniation or hydrocephalus. The ventricles, sulci and cisterns are age appropriate. The eaton-white differentiation is intact. The visualized paranasal sinuses and mastoid air cells are clear. No depressed calvarial fracture. The surrounding soft tissues are unremarkable. IMPRESSION: 1. No evidence of acute intracranial abnormality. Assessment/Plan Assessment/Plan Assessment: Hepatic encephalopathy, Hyperammonemia, Liver cirrhosis, Thrombocytopenia, Transaminitis, CHF, Plan: Admit to Med-Surg, Increase lactulose to 30ml BID, Manage/Monitor electrolytes, Home medications reconciled, Consider GI consult, if symptoms persist, Plan discussed with: Patient My Orders Orders - OSMANI BLACKBURN Procedure Category Date Status Time Admit ADMIT 10/29/24 Transmitted 12:03 Code Status CODE 10/29/24 Transmitted 12:03 Sodium Chloride Lock PHA 10/29/24 Logged (Saline Lock Ns) 14:00 Hydrocodone-Acet PHA 10/29/24 Logged 5/325mg Tab ([place] 12:15 Ondansetron Hcl PHA 10/29/24 Logged (Zofran) 12:15 Docusate Sodium PHA 10/29/24 Logged Capsule (Colace 12:15 Complete Blood Count LAB 10/30/24 Verified 04:00 Comprehensive LAB 10/30/24 Verified Metabolic Panel 04:00 Cardiac DIET 10/29/24 Transmitted Diet-2gna,Lofat,Lochol Lunch Condition: Serious RAMAKRISHNA 10/29/24 In Process 12:03 Acetaminophen Tablet PHA 10/29/24 Logged (Tylenol Tablet) 12:15 (Nf) Spironolactone PHA 10/30/24 Logged 10:00 Lactulose Oral PHA 10/29/24 Logged 12:15 Lactulose Oral PHA 10/29/24 Logged 22:00 Ammonia LAB 10/30/24 Verified 04:00 Date of Service: Oct 29, 2024 Billing Provider: OSMANI BLACKBURN Common Visit Codes: [id number] INP/OBS CARE (MOD) OSMANI BLACKBURN Oct 29, 2024 12:20
[2024-10-29] MEDS: LACTULOSE 20Gm/30ML SOLN PO ONE (12:54)
[2024-10-29] MEDS: SODIUM CHLOR 0.9% PF (SALINE LOCK) 10ML VIAL/SYR IV SCH (14:25)
--- NOTE | 2024-10-29 17:58 | ECG ---
[facility] Test Date: 2024-10-29 Test Time: 08:20:57 Pat Name: KALPESH KELLOGG Department: ED Room: [address] [place] [address] A Gender: F Pattern Gater: ZITA : 1955 Requested By: FELICIA MCLAIN Order Number: [id number] Reading MD: Carl Laguna Measurements Intervals [place] Rate: 73 P: 46 UT: 193 QRS: 49 QRSD: 84 T: -5 QT: 424 QTc: 468 Interpretive Statements Sinus rhythm Borderline T abnormalities, anterior leads Electronically Signed On 10-29-2024 21:10:13 PDT by Carl Laguna Please click the below link to view image of tracing.
[2024-10-29 19:47] VITALS: PULSE 84; RESP 16; O2SAT 99
[2024-10-29] MEDS: LACTULOSE 20Gm/30ML SOLN PO SCH (22:25)
[2024-10-30 07:25] VITALS: PULSE 67; RESP 12; O2SAT 100
[2024-10-30 07:30] VITALS: PULSE 70; RESP 13; O2SAT 100
[2024-10-30 07:31] LABS: Alanine Aminotransferase 33 U/L (7-40); Albumin 2.2 g/dL (3.2-4.8); Alkaline Phosphatase 135 U/L (46-116); Anion Gap 8 (5-15); Aspartate Aminotransferase 54 U/L (13-40); BUN/Creatinine Ratio 24.6 (10.0-20.0); Blood Urea Nitrogen 34 mg/dL (9-23); Calcium 8.8 mg/dL (8.7-10.4); Carbon Dioxide 26 mmol/L (20-31); Chloride 100 mmol/L (98-107); Glucose 91 mg/dL (74-106); Potassium 4.4 mmol/L (3.5-5.1); Sodium 134 mmol/L (136-145); Total Protein 4.9 g/dL (5.7-8.2)
[2024-10-30 07:32] LABS: Bilirubin, Total 5.5 mg/dL (0.2-1.0)
[2024-10-30 07:34] LABS: Basophils # (auto) 0 10 ^3/uL (0-0.2); Basophils % (auto) 0.4 % (0.0-2.0); Eosinophils # (auto) 0.1 10 ^3/uL (0-0.8); Eosinophils % (auto) 1.8 % (0.0-7.0); Hematocrit 28.4 % (36.0-46.0); Hemoglobin 9.7 g/dL (12.2-16.2); Lymphocytes # (auto) 0.6 10 ^3/uL (0.4-5.4); Lymphocytes % (auto) 10.5 % (10.0-50.0); Mean Corpuscular Hemoglobin 33.9 pg (28.0-32.0); Mean Corpuscular Hgb Conc. 34.2 g/dL (32.0-36.0); Monocytes # (auto) 0.8 10 ^3/uL (0-1.3); Monocytes % (auto) 13.6 % (0.0-12.0); Neutrophils # (auto) 4.2 10 ^3/uL (1.6-8.6); Neutrophils % (auto) 73.7 % (37.0-80.0); Nucleated Red Blood Cells % 0.2 %; Platelet Count (auto) 107 10^3/uL (140-450); Red Blood Cells 2.86 10^6/uL (4.0-5.20); Red Cell Distribution Width 13.9 % (11.8-14.3); White Blood Cell 5.7 10^3/uL (4.4-10.8)
[2024-10-30] MEDS ORDERED: SPIRONOLACTONE 25 MG TAB PO SCH (10:00)
--- NOTE | 2024-10-30 10:00 | DVHPNRES ---
Progress Note Date Seen: Oct 30, 2024 Resident Creating Document: SUSHIL COOPER RESIDENT Medical Necessity Reason Pt with a Central, PICC or Fol: No Subjective Review of Systems This is a 69-year-old female with past medical history of liver cirrhosis, CHF, CKD presented to the ED with a complaint of altered mental status for 1 day prior to this admission. according to the daughter for last 2 days she was more confused, nauseous and was not eating well that prompted this visit. According to the daughter the patient was admitted few times in last 2-3 months and her ammonia was fluctuated and this time she thought that her ammonia might be got higher causing the confusion and nausea that's why they came to the ED. Patient was seen and examined on the bedside. she is alert oriented x3. complaint of generalized weakness, nausea and watery discharge from the sacral wound. No other active complaint. Constitutional: No: Fever, Chills, Sweats, Weakness, Malaise, Other Eyes: No: Pain, Vision change, Conjunctivae inflammation, Eyelid inflammation, Other, Redness ENT: No: Ear pain, Ear discharge, Nose pain, Nose discharge, Nose congestion, Mouth pain, Mouth swelling, Throat pain, Throat swelling, Other Respiratory: Shortness of breath, improving No: Cough, Dry,Wheezing, Hemoptysis, Pleuritic Pain, Sputum, Wheezing, Other Cardiovascular: No: Chest Pain, Palpitations, Orthopnea, Paroxysmal Noc. Dyspnea, Edema, Lt Headedness, Other Gastrointestinal: Nausea, No Vomiting, Abdominal Pain, Diarrhea, Constipation, Melena, Hematochezia, Other Musculoskeletal: No: other, neck pain, shoulder pain, arm pain, back pain, hand pain, leg pain, foot pain Neurological:; No: Weakness, Numbness, Incoordination, Change in speech, Confusion, Seizures Objective vital signs Vital Sign Date Time Temp Pulse Resp B/P (MAP) Pulse Ox O2 Delivery O2 Flow Rate FiO2 10/30/24 07:45 97.7 67 12 117/45 (69) 100 97.7 10/30/24 07:25 Room Air* 0 21 medications Current Medications Medications Dose Ordered Sig/Anna Route Start Time Stop Time Status Last Admin Dose Admin Sodium Chloride 10 ml Q8HR IV 10/29/24 14:00 10/30/24 07:02 10 ML Acetaminophen/ Hydrocodone Bitart 1 tab Q4HP PRN PO 4/16/25 12:15 Ondansetron HCl 4 mg Q4HP PRN IV 10/29/24 12:15 Docusate Sodium 100 mg BIDPRN PRN PO 10/29/24 12:15 Acetaminophen 650 mg Q6HP PRN PO 10/29/24 12:15 Lactulose 30 ml BID PO 10/29/24 22:00 10/29/24 22:25 30 ML Spironolactone 25 mg DAILY PO 10/30/24 09:45 Bumetanide 1 mg BIDD PO 10/30/24 18:00 Enoxaparin Sodium 40 mg DAILY SC 10/30/24 10:00 Famotidine 20 mg DAILY PO 10/30/24 10:00 Examination Physical examination: General Appearance: Alert, Oriented X3, Cooperative, No acute distress HEENT: Atraumatic, PERRLA, EOMI, Mucous membrane moist/pink Respiratory: Clear to auscultation, Normal air movement Cardiovascular: Regular rate, Normal S1, Normal S2, No murmurs, no chest wall tenderness Abdominal: Normal bowel sounds, Soft, No tenderness, No hepatospenomegaly, No masses Extremities: Bilateral pedal edema, No clubbing, No cyanosis, Normal pulses. Skin: No rashes, No breakdown, No significant lesion Neuro: Normal gait, Normal speech, Strength at 5/5 X4 ext, Normal tone, Sensation intact, Cranial nerves 3-12 NL, Reflexes 2+ Psych/Mental Status: Mental status NL, Mood NL laboratory and microbiology Laboratory Tests 10/30/24 06:48 Test 10/30/24 06:48 Range/Units Serum Glucose 91 74-106 mg/dL Labs and/or images reviewed: Labs reviewed by me, Image(s) reviewed by me Problem List/Assessment/Plan Problem List/Assessment/Plan Assessment and plan: # Acute metabolic encephalopathy likely secondary to hepatic encephalopathy # History of liver cirrhosis # Thrombocytopenia likely due to cirrhosis # Chronic macrocytic anemia # Hyperbilirubinemia and transaminitis likely due to cirrhosis # Dilutional hyponatremia secondary to cirrhosis # 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 - Bumetanide 1 mg b.i.d. - Aldactone 25 mg daily # JOSE ALBERTO on CKD likely due to VMN - Monitor BMP # Acute complicated cystitis - U/A consistent with UTI - Ordered urine bacterial culture - IV ceftriaxone 1 g daily # Moderate protein calorie malnutrition # DVT prophylaxis - Lovenox 40 mg sc daily Goal of care discussed with the patient for more than 20 minutes full code Plan discussed with Dr. Mojica Plan discussed with: Patient, Other My Orders My Orders Orders - SUSHIL COOPER Procedure Category Date Status Time * Wound Consult CONS 10/30/24 Transmitted Spironolactone PHA 10/30/24 In Process (Aldactone) 09:45 Bumetanide Tablet PHA 10/30/24 In Process (Bumex Tablet) 18:00 Enoxaparin Sodium PHA 10/30/24 In Process (Lovenox) 10:00 Famotidine Tablet PHA 10/30/24 In Process (Pepcid Tablet) 10:00 Date of Service: Oct 30, 2024 Billing Provider: RUTHANN DUPONT MD Common Visit Codes: [id number] INP/OBS CARE(HIGH) SUSHIL COOPER RESIDENT Oct 30, 2024 10:00 RUTHANN DUPONT MD Nov 05, 2024 01:42
[2024-10-30] MEDS: BUMETANIDE 1 MG TAB PO ONE (10:37)
[2024-10-30] MEDS: FAMOTIDINE 20 MG TAB PO SCH (10:38)
[2024-10-30] MEDS: SPIRONOLACTONE 25 MG TAB PO SCH (10:38)
[2024-10-30] MEDS: ENOXAPARIN SOD 40 MG/0.4 ML SYRINGE SC SCH (10:38)
[2024-10-30 12:12] LABS: INR 1.33 (0.9-1.15); Partial Thromboplastin Time 33.6 SEC (24.5-34.5); Prothrombin Time 13.7 sec (9.3-11.8)
--- NOTE | 2024-10-30 12:20 | DVH ---
AP portable chest HISTORY: History of CHF Comparison: XY CHEST PORTABLE on DOS: 10/06/24, XY CHEST PORTABLE on DOS: 09/17/24, XY CHEST PORTABLE on DOS: 05/07/24 FINDINGS: Heart size enlarged. Aorta slightly tortuous. No infiltrates or effusions. IMPRESSION: 1. Cardiomegaly. No acute changes compared to prior study
[2024-10-30 14:12] LABS: Urine Bacteria MANY /hpf (None Seen); Urine Blood Negative /uL (Negative); Urine Budding Yeast MANY /hpf (None Seen); Urine Clarity Turbid (Clear); Urine Color Light-Yellow (Yellow); Urine Hyaline Cast MOD /lpf (0 - 2); Urine Mucus FEW (None Seen); Urine Protein, UAD Negative (Negative); Urine Specific Gravity 1.008 (1.001-1.035); Urine Squamous Epithelial Cell FEW /hpf (<5); Urine Urobilinogen Normal (Negative); Urine WBC 32 /HPF (0-5); Urine pH 5.5 (5.0-9.0)
--- NOTE | 2024-10-30 14:30 | DVH ---
Bilateral lower extremity venous duplex Clinical History: Pain and edema Comparison: US RT LOWER DVT on DOS: 02/08/24, US BILAT LOWER DVT on DOS: 02/06/24 Technique: Duplex Doppler evaluation of the deep venous systems of both lower extremities from the common femora l veins to the popliteal veins including color Doppler and spectral/pulsed waveform analysis was perf ormed. Findings: RIGHT SIDE: The common femoral vein demonstrates appropriate compressibility and waveform variability. There is compressibility/patency of the great saphenous vein at the proximal thigh. The femoral vein demonstrates appropriate compressibility and waveform variability. The deep femoral vein demonstrates appropriate compressibility and waveform variability. The popliteal vein demonstrates appropriate compressibility and waveform variability. There is normal compressibility at the tibioperoneal trunk. LEFT SIDE: The common femoral vein demonstrates appropriate compressibility and waveform variability. There is compressibility/patency of the great saphenous vein at the proximal thigh. The femoral vein demonstrates appropriate compressibility and waveform variability. The deep femoral vein demonstrates appropriate compressibility and waveform variability. The popliteal vein demonstrates appropriate compressibility and waveform variability. There is normal compressibility at the tibioperoneal trunk. Impression: No right or left femoropopliteal venous thrombosis.
[2024-10-30] MEDS: cefTRIAXone 1GM/50ML D5W 50 ML IV ONE (15:56)
[2024-10-30] MEDS: BUMETANIDE 1 MG TAB PO SCH (18:07)
[2024-10-30 19:30] VITALS: PULSE 83; RESP 16; O2SAT 98
[2024-10-30 23:48] VITALS: PULSE 78; RESP 16
[2024-10-31] VITALS (7 sets, daily range): BP systolic 97–110; BP diastolic 30–40; PULSE 72–79; RESP 15–20; TEMP 97.6–97.9; O2SAT 93–100
[2024-10-31] MEDS: ONDANSETRON HCL 4 MG/2 ML VIAL IV PRN (00:42)
[2024-10-31 07:56] LABS: Anion Gap 7 (5-15); Carbon Dioxide 26 mmol/L (20-31); Chloride 100 mmol/L (98-107); Potassium 4.2 mmol/L (3.5-5.1)
[2024-10-31 07:57] LABS: Calcium 8.4 mg/dL (8.7-10.4); Sodium 133 mmol/L (136-145)
[2024-10-31 08:01] LABS: BUN/Creatinine Ratio 20.9 (10.0-20.0); Glucose 101 mg/dL (74-106)
[2024-10-31 08:05] LABS: Blood Urea Nitrogen 28 mg/dL (9-23)
[2024-10-31] MEDS ORDERED: cefTRIAXone 1GM/50ML D5W 50 ML IV SCH (09:00)
[2024-10-31] MEDS: ERTAPENEM SOD INJ 1 GM in SODIUM CHL 0.9% 50 ML IV ONE (12:36)
--- NOTE | 2024-10-31 14:23 | DVHPNRES ---
Progress Note Date Seen: Oct 31, 2024 Resident Creating Document: SUSHIL COOPER RESIDENT Medical Necessity Reason Pt with a Central, PICC or Fol: No Objective vital signs Vital Sign Date Time Temp Pulse Resp B/P (MAP) Pulse Ox O2 Delivery O2 Flow Rate FiO2 10/31/24 13:00 97.7 74 17 97/32 (53) 99 97.7 10/31/24 08:00 Room Air* 0 21 Total Intake and Output 10/30/24 10/30/24 10/31/24 15:00 23:00 07:00 Intake Total 50 ml Output Total 750 ml 300 ml Balance -700 ml -300 ml medications Current Medications Medications Dose Ordered Sig/Anna Route Start Time Stop Time Status Last Admin Dose Admin Sodium Chloride 10 ml Q8HR IV 10/29/24 14:00 10/31/24 05:34 10 ML Acetaminophen/ Hydrocodone Bitart 1 tab Q4HP PRN PO 10/29/24 12:15 Ondansetron HCl 4 mg Q4HP PRN IV 10/29/24 12:15 10/31/24 12:36 4 MG Docusate Sodium 100 mg BIDPRN PRN PO 10/29/24 12:15 Acetaminophen 650 mg Q6HP PRN PO 10/29/24 12:15 Lactulose 30 ml BID PO 10/29/24 22:00 10/31/24 10:14 30 ML Spironolactone 25 mg DAILY PO 10/30/24 09:45 10/31/24 10:14 25 MG Bumetanide 1 mg BIDD PO 10/30/24 18:00 10/30/24 18:07 1 MG Enoxaparin Sodium 40 mg DAILY SC 10/30/24 10:00 Famotidine 20 mg DAILY PO 10/30/24 10:00 10/31/24 10:14 20 MG Ertapenem 1 gm/ Sodium Chloride 50 ml @ 100 mls/hr DAILY IV 11/01/24 10:00 laboratory and microbiology Laboratory Tests 10/31/24 07:23 10/30/24 06:48 Test 10/31/24 07:23 Range/Units Serum Glucose 101 74-106 mg/dL Microbiology Date/Time Source Procedure Growth Status 10/30/24 13:45 Voided Urine Urine Culture - Preliminary Resulted Problem List/Assessment/Plan Problem List/Assessment/Plan Assessment and plan: # Acute metabolic encephalopathy likely secondary to hepatic encephalopathy # History of liver cirrhosis # Thrombocytopenia likely due to cirrhosis # Chronic macrocytic anemia # Hyperbilirubinemia and transaminitis likely due to cirrhosis # Dilutional hyponatremia secondary to cirrhosis # 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 - Bumetanide 1 mg b.i.d. - Aldactone 25 mg daily # JOSE ALBERTO on CKD likely due to VMN - Monitor BMP # Acute complicated cystitis - U/A consistent with UTI - Ordered urine bacterial culture - IV ceftriaxone 1 g daily # Moderate protein calorie malnutrition # DVT prophylaxis - Lovenox 40 mg sc daily Goal of care discussed with the patient for more than 20 minutes full code Plan discussed with Dr. Mojica My Orders My Orders Orders - SUSHIL COOPER RESIDENT Procedure Category Date Status Time Urine Bacterial EUFEMIA 10/30/24 In Process Culture 15:15 Ertapenem Sod Inj PHA 11/01/24 In Process (Invanz) 10:00 SUSHIL COOPER RESIDENT Oct 31, 2024 14:23
--- NOTE | 2024-10-31 14:28 | DVHPNRES ---
Progress Note Date Seen: Oct 31, 2024 Resident Creating Document: SUSHIL COOPER RESIDENT Medical Necessity Reason Pt with a Central, PICC or Fol: No Subjective Review of Systems Patient was seen and examined on the bedside. She is alert oriented x3. Complaint of generalized weakness, nausea and loss of appetite. No other active complaint Objective vital signs Vital Sign Date Time Temp Pulse Resp B/P (MAP) Pulse Ox O2 Delivery O2 Flow Rate FiO2 10/31/24 13:00 97.7 74 17 97/32 (53) 99 97.7 10/31/24 08:00 Room Air* 0 21 Total Intake and Output 10/30/24 10/30/24 10/31/24 15:00 23:00 07:00 Intake Total 50 ml Output Total 750 ml 300 ml Balance -700 ml -300 ml medications Current Medications Medications Dose Ordered Sig/Anna Route Start Time Stop Time Status Last Admin Dose Admin Sodium Chloride 10 ml Q8HR IV 10/29/24 14:00 10/31/24 05:34 10 ML Acetaminophen/ Hydrocodone Bitart 1 tab Q4HP PRN PO 10/29/24 12:15 Ondansetron HCl 4 mg Q4HP PRN IV 10/29/24 12:15 10/31/24 12:36 4 MG Docusate Sodium 100 mg BIDPRN PRN PO 10/29/24 12:15 Acetaminophen 650 mg Q6HP PRN PO 10/29/24 12:15 Lactulose 30 ml BID PO 10/29/24 22:00 10/31/24 10:14 30 ML Spironolactone 25 mg DAILY PO 10/30/24 09:45 10/31/24 10:14 25 MG Bumetanide 1 mg BIDD PO 10/30/24 18:00 10/30/24 18:07 1 MG Enoxaparin Sodium 40 mg DAILY SC 10/30/24 10:00 Famotidine 20 mg DAILY PO 10/30/24 10:00 10/31/24 10:14 20 MG Ertapenem 1 gm/ Sodium Chloride 50 ml @ 100 mls/hr DAILY IV 11/01/24 10:00 Examination Physical examination: General Appearance: Alert, Oriented X3, Cooperative, No acute distress HEENT: Atraumatic, PERRLA, EOMI, Mucous membrane moist/pink Respiratory: Clear to auscultation, Normal air movement Cardiovascular: Regular rate, Normal S1, Normal S2, No murmurs, no chest wall tenderness Abdominal: Normal bowel sounds, Soft, No tenderness, No hepatospenomegaly, No masses Extremities: Bilateral pedal edema, No clubbing, No cyanosis, Normal pulses. Skin: No rashes, No breakdown, No significant lesion Neuro: Normal gait, Normal speech, Strength at 5/5 X4 ext, Normal tone, Sensation intact, Cranial nerves 3-12 NL, Reflexes 2+ Psych/Mental Status: Mental status NL, Mood NL laboratory and microbiology Laboratory Tests 10/31/24 07:23 10/30/24 06:48 Test 10/31/24 07:23 Range/Units Serum Glucose 101 74-106 mg/dL Microbiology Date/Time Source Procedure Growth Status 10/30/24 13:45 Voided Urine Urine Culture - Preliminary Resulted Labs and/or images reviewed: Labs reviewed by me, Image(s) reviewed by me Problem List/Assessment/Plan Problem List/Assessment/Plan Assessment and plan: # Acute metabolic encephalopathy likely secondary to hepatic encephalopathy # History of liver cirrhosis # Thrombocytopenia likely due to cirrhosis # Chronic macrocytic anemia # Hyperbilirubinemia and transaminitis likely due to cirrhosis # Dilutional hyponatremia secondary to cirrhosis # 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 - Bumetanide 1 mg b.i.d. - Aldactone 25 mg daily # JOSE ALBERTO on CKD likely due to VMN - Monitor BMP # Acute complicated cystitis - U/A consistent with UTI - Ordered urine bacterial culture - previous urine culture in 0 10/07 demonstrated ESBL E coli sensitive to ertapenem - IV Ertapenem1 g daily # Moderate protein calorie malnutrition # DVT prophylaxis - Lovenox 40 mg sc daily Goal of care discussed with the patient for more than 20 minutes full code Plan discussed with Dr. Mojica Plan discussed with: Patient, Other My Orders My Orders Orders - SUSHIL COOPER Procedure Category Date Status Time Urine Bacterial EUFEMIA 10/30/24 In Process Culture 15:15 Ertapenem Sod Inj PHA 11/01/24 In Process (Invanz) 10:00 Date of Service: Oct 31, 2024 Billing Provider: BENJAMIN MOJICA MD Common Visit Codes: [id number] INP/OBS CARE(MOD) SUSHIL COOPER RESIDENT Oct 31, 2024 14:28 BENJAMIN MOJICA MD Oct 31, 2024 16:41
[2024-11-01] VITALS (8 sets, daily range): BP systolic 99–107; BP diastolic 32–53; PULSE 68–74; RESP 15–19; TEMP 97.6–98.3; O2SAT 94–99
[2024-11-01] MEDS: ACETAMINOPHEN 325 MG TAB PO PRN (02:27)
[2024-11-01 05:19] LABS: Basophils # (auto) 0 10 ^3/uL (0-0.2); Basophils % (auto) 0.6 % (0.0-2.0); Eosinophils # (auto) 0.1 10 ^3/uL (0-0.8); Eosinophils % (auto) 2.3 % (0.0-7.0); Hematocrit 27.2 % (36.0-46.0); Hemoglobin 9.4 g/dL (12.2-16.2); Lymphocytes # (auto) 0.7 10 ^3/uL (0.4-5.4); Lymphocytes % (auto) 11.4 % (10.0-50.0); Mean Corpuscular Hemoglobin 33.9 pg (28.0-32.0); Mean Corpuscular Hgb Conc. 34.6 g/dL (32.0-36.0); Mean Corpuscular Volume 97.9 fL (80.0-100.0); Monocytes # (auto) 0.9 10 ^3/uL (0-1.3); Monocytes % (auto) 14.8 % (0.0-12.0); Neutrophils # (auto) 4.3 10 ^3/uL (1.6-8.6); Neutrophils % (auto) 70.9 % (37.0-80.0); Nucleated Red Blood Cells % 0.1 %; Platelet Count (auto) 105 10^3/uL (140-450); Red Blood Cells 2.78 10^6/uL (4.0-5.20); Red Cell Distribution Width 13.8 % (11.8-14.3); White Blood Cell 6.1 10^3/uL (4.4-10.8)
[2024-11-01 05:34] LABS: Potassium 4.1 mmol/L (3.5-5.1)
[2024-11-01 05:35] LABS: Anion Gap 7 (5-15); Carbon Dioxide 26 mmol/L (20-31)
[2024-11-01 05:39] LABS: Calcium 8.4 mg/dL (8.7-10.4); Chloride 98 mmol/L (98-107); Sodium 131 mmol/L (136-145)
[2024-11-01 05:40] LABS: BUN/Creatinine Ratio 20.1 (10.0-20.0); Glucose 99 mg/dL (74-106)
[2024-11-01 05:47] LABS: Blood Urea Nitrogen 27 mg/dL (9-23)
[2024-11-01 10:04] LABS: Urine Bacteria MOD /hpf (None Seen); Urine Blood TRACE /uL (Negative); Urine Budding Yeast MODERATE /hpf (None Seen); Urine Clarity Clear (Clear); Urine Color Yellow (Yellow); Urine Hyaline Cast MOD /lpf (0 - 2); Urine Mucus FEW (None Seen); Urine Protein, UAD Negative (Negative); Urine Specific Gravity 1.011 (1.001-1.035); Urine Squamous Epithelial Cell FEW /hpf (<5); Urine Urobilinogen Normal (Negative); Urine WBC 10 /HPF (0-5)
[2024-11-01] MEDS: ERTAPENEM SOD INJ 1 GM in SODIUM CHL 0.9% 50 ML IV SCH (12:02)
--- NOTE | 2024-11-01 13:00 | DVHPN2 ---
Reviewed: Care Plan, H&P, Labs, Medications, Previous Orders, Radiology Changes from previous H/P or p: No Changes Eyes: No Pain, No Vision change, No Conjunctivae inflammation, No Eyelid inflammation, No Other, No Redness ENT: No Ear pain, No Ear discharge, No Nose pain, No Nose discharge, No Nose congestion, No Mouth pain, No Mouth swelling, No Throat pain, No Throat swelling, No Other Cardiovascular: No Chest Pain, No Palpitations, No Orthopnea, No Paroxysmal Noc. Dyspnea, No Edema, No Lt Headedness, No Other Respiratory: No Cough, No Dry, No Shortness of breath, No SOB with excertion, No Wheezing, No Hemoptysis, No Pleuritic Pain, No Sputum, No Other Gastrointestinal: No Nausea, No Vomiting, No Abdominal Pain, No Diarrhea, No Constipation, No Melena, No Hematochezia, No Other Genitourinary: No Dysuria, No Frequency, No Incontinence, No Hematuria, No Retention, No Other Musculoskeletal: No other, No neck pain, No shoulder pain, No arm pain, No back pain, No hand pain, No leg pain, No foot pain Skin: No Rash, No Lesions, No Jaundice, No Bruising, No Other Objective Vitals Vital Signs Date Time Temp Pulse Resp B/P (MAP) Pulse Ox O2 Delivery O2 Flow Rate FiO2 11/01/24 08:48 98.0 69 17 104/38 (60) 99 98.0 10/31/24 20:00 Room Air* 0 21 Intake/Output Intake and Output 11/01/24 07:00 Intake Total 1150 ml Output Total 1800 ml Balance -650 ml Intake Oral 1100 ml IV Total 50 ml Output Urine Total 1800 ml Medications Current Medications Medications Dose Ordered Sig/Anna Route Start Time Stop Time Status Last Admin Dose Admin Sodium Chloride 10 ml Q8HR IV 10/29/24 14:00 11/01/24 06:00 10 ML Acetaminophen/ Hydrocodone Bitart 1 tab Q4HP PRN PO 10/29/24 12:15 Ondansetron HCl 4 mg Q4HP PRN IV 10/29/24 12:15 11/01/24 02:09 4 MG Docusate Sodium 100 mg BIDPRN PRN PO 10/29/24 12:15 Acetaminophen 650 mg Q6HP PRN PO 10/29/24 12:15 11/01/24 02:27 650 MG Lactulose 30 ml BID PO 10/29/24 22:00 11/01/24 12:03 30 ML Spironolactone 25 mg DAILY PO 10/30/24 09:45 11/01/24 12:03 25 MG Bumetanide 1 mg BIDD PO 10/30/24 18:00 10/31/24 18:45 1 MG Enoxaparin Sodium 40 mg DAILY SC 10/30/24 10:00 11/01/24 12:03 40 MG Famotidine 20 mg DAILY PO 10/30/24 10:00 11/01/24 12:03 20 MG Ertapenem 1 gm/ Sodium Chloride 50 ml @ 100 mls/hr DAILY IV 11/01/24 10:00 11/01/24 12:02 100 MLS/HR Laboratory Results Laboratory Tests 11/01/24 04:40 Chemistry Test 11/01/24 04:40 Calcium Level 8.4 mg/dL (8.7-10.4) L Urinalysis Test 11/01/24 07:35 Urine Color Yellow (Yellow) Urine Clarity Clear (Clear) Urine pH 5.0 (5.0-9.0) Urine Specific [place] 1.011 (1.001-1.035) Urine Protein Negative (Negative) Urine Ketones Negative (Negative) Urine Blood Trace /uL (Negative) H Urine Nitrite Negative (Negative) Urine Bilirubin Negative (Negative) Urine Urobilinogen Normal mg/dL (Negative) Urine Leukocyte Esterase 1+ /uL (Negative) Urine RBC 3 /hpf (0 - 4) Urine Microscopic WBC 10 /HPF (0-5) H Urine Squamous Epithelial Cells Few /hpf (<5) Urine Bacteria Mod /hpf (None Seen) H Urine Hyaline Casts Mod /lpf (0 - 2) Urine Mucus Few (None Seen) Urine Yeast (Budding) Moderate /hpf (None Seen) Urine Glucose Normal mg/dL (Normal) Microbiology Microbiology Date/Time Source Procedure Growth Status 10/30/24 13:45 Voided Urine Urine Culture - Final Enterococcus faecium - VRE Vanc Resistant Enterococcus Complete Labs and/or images reviewed: Labs reviewed by me, Image(s) reviewed by me Assessment/Plan Assessment/Plan Covering For resident physician Sepsis secondary to urinary tract infection Acute metabolic encephalopathy Acute urinary tract infection urine cultures growing vancomycin resistant Enterococcus, stop Invanz. Start Zyvox 600 mg IV q.12 hrs Chronic macrocytic anemia Jaundice Cirrhosis of liver Hyperbilirubinemia JOSE ALBERTO Protein calorie malnutrition Continue current management Plan discussed with: Patient Date of Service: Nov 01, 2024 Billing Provider: SUNI GAMBOA MD Common Visit Codes: [id number] INP/OBS CARE(HIGH) SUNI GAMBOA MD Nov 01, 2024 13:00
[2024-11-01] MEDS: LINEZOLID 600MG/300ML 300 ML IV SCH (21:51)
[2024-11-02 01:00] VITALS: BP 104/48; PULSE 72; RESP 18; TEMP 98.3; O2SAT 95
[2024-11-02] MEDS: HYDROcodone-ACET 5/325MG TAB PO PRN (01:12)
[2024-11-02 05:00] VITALS: BP 110/43; PULSE 75; RESP 18; TEMP 97.8; O2SAT 96
[2024-11-02 08:10] VITALS: PULSE 74; RESP 18; O2SAT 98
[2024-11-02 09:00] VITALS: BP 111/46; PULSE 74; RESP 18; TEMP 98; O2SAT 98
[2024-11-02 13:00] VITALS: BP 99/41; PULSE 74; RESP 16; TEMP 98.7; O2SAT 97
[2024-11-02 15:05] VITALS: BP 110/43; PULSE 74; RESP 18; TEMP 37.1; O2SAT 97
--- NOTE | 2024-11-02 15:44 | DVHDSRES ---
Discharge Summary Date of Admission Resident Creating Document: SUSHIL COOPER RESIDENT Oct 29, 2024 at 12:03 Date of Discharge: Nov 02, 2024 Admitting Diagnosis # Acute metabolic encephalopathy likely secondary to hepatic encephalopathy Wounds: medial sacral wound is open partial thickness Labs/Diagnostic Data: Laboratory Results Test 11/01/24 07:35 11/01/24 04:40 10/30/24 11:35 10/30/24 06:48 Urine Color Yellow (Yellow) Urine Clarity Clear (Clear) Urine pH 5.0 (5.0-9.0) Urine Specific [place] 1.011 (1.001-1.035) Urine Protein Negative (Negative) Urine Ketones Negative (Negative) Urine Blood Trace /uL (Negative) Urine Nitrite Negative (Negative) Urine Bilirubin Negative (Negative) Urine Urobilinogen Normal mg/dL (Negative) Urine Leukocyte Esterase 1+ /uL (Negative) Urine RBC 3 /hpf (0 - 4) Urine Microscopic WBC 10 /HPF (0-5) Urine Squamous Epithelial Cells Few /hpf (<5) Urine Bacteria Mod /hpf (None Seen) Urine Hyaline Casts Mod /lpf (0 - 2) Urine Mucus Few (None Seen) Urine Yeast (Budding) Moderate /hpf (None Seen) Urine Glucose Normal mg/dL (Normal) White Blood Count 6.1 10^3/uL (4.4-10.8) Red Blood Count 2.78 10^6/uL (4.0-5.20) Hemoglobin 9.4 g/dL (12.2-16.2) Hematocrit 27.2 % (36.0-46.0) Mean Corpuscular Volume 97.9 fL (80.0-100.0) Mean Corpuscular Hemoglobin 33.9 pg (28.0-32.0) Mean Corpuscular Hemoglobin Concent 34.6 g/dL (32.0-36.0) Red Cell Distribution Width 13.8 % (11.8-14.3) Platelet Count 105 10^3/uL (140-450) Mean Platelet Volume 7.9 fL (6.9-10.8) Neutrophils (%) (Auto) 70.9 % (37.0-80.0) Lymphocytes (%) (Auto) 11.4 % (10.0-50.0) Monocytes (%) (Auto) 14.8 % (0.0-12.0) Eosinophils (%) (Auto) 2.3 % (0.0-7.0) Basophils (%) (Auto) 0.6 % (0.0-2.0) Neutrophils # (Auto) 4.3 10 ^3/uL (1.6-8.6) Lymphocytes # (Auto) 0.7 10 ^3/uL (0.4-5.4) Monocytes # (Auto) 0.9 10 ^3/uL (0-1.3) Eosinophils # (Auto) 0.1 10 ^3/uL (0-0.8) Basophils # (Auto) 0 10 ^3/uL (0-0.2) Nucleated Red Blood Cells 0.1 % Sodium Level 131 mmol/L (136-145) Potassium Level 4.1 mmol/L (3.5-5.1) Chloride Level 98 mmol/L (98-107) Carbon Dioxide Level 26 mmol/L (20-31) Anion Gap 7 (5-15) Blood Urea Nitrogen 27 mg/dL (9-23) Creatinine 1.34 mg/dL (0.550-1.02) Glomerular Filtration Rate Calc 43 mL/min (>90) BUN/Creatinine Ratio 20.1 (10.0-20.0) Serum Glucose 99 mg/dL (74-106) Calcium Level 8.4 mg/dL (8.7-10.4) Prothrombin Time 13.7 sec (9.3-11.8) Prothrombin Time INR 1.33 (0.9-1.15) Activated Partial Thromboplast Time 33.6 SEC (24.5-34.5) Total Bilirubin 5.5 mg/dL (0.2-1.0) Aspartate Amino Transferase (AST) 54 U/L (13-40) Alanine Aminotransferase (ALT) 33 U/L (7-40) Alkaline Phosphatase 135 U/L (46-116) Ammonia 20 umol/L (11-32) B-Type Natriuretic Peptide 54.64 pg/mL (0-100) Total Protein 4.9 g/dL (5.7-8.2) Albumin 2.2 g/dL (3.2-4.8) Thyroid Stimulating Hormone (TSH) 2.87 uIU/mL (0.55-4.78) Test 10/29/24 13:43 10/29/24 10:06 4/16/25 08:24 Troponin I High Sensitivity 3 ng/L (</=34) Lactic Acid Level 1.8 mmol/L (0.4-2.0) Lipase 34 U/L (12-53) POC Glucose 80 mg/dl (70-106) Other Laboratory Tests 11/01/24 04:40 Brief Hx & Hospital Course: This is a 69-year-old female with past medical history of liver cirrhosis, CHF, CKD presented to the ED with a complaint of altered mental status for 1 day prior to this admission. according to the daughter for last 2 days she was more confused, nauseous and was not eating well that prompted this visit. According to the daughter the patient was admitted few times in last 2-3 months and her ammonia was fluctuated and this time she thought that her ammonia might be got higher causing the confusion and nausea that's why they came to the ED. Hospital course: Initially presented with acute metabolic encephalopathy likely secondary to hepatic encephalopathy in context of Liver cirrhosis. Head CT demonstrated normal study and ammonia was 20 and treated with Lactulose 30 mL b.i.d and resumed Bumetanide 1 mg b.i.d. and Aldactone 25 mg daily. JOSE ALBERTO on CKD likely due to VMN which was treated with IV fluid. U/A consistent with UTI and culture showed Enterococcus faecium sensitive to Linezolid and treated with IV Linezolid 600 mg bid. Due to patient current condition and comorbidity patient and family agreed for hospice care. Patient is being discharged to Hospice care with Linezolid 600 mg bid for 5 days and advised to continue home medications. Physical examination: General Appearance: Alert, Oriented X3, Cooperative, No acute distress HEENT: Atraumatic, PERRLA, EOMI, Mucous membrane moist/pink Respiratory: Clear to auscultation, Normal air movement Cardiovascular: Regular rate, Normal S1, Normal S2, No murmurs, no chest wall tenderness Abdominal: Normal bowel sounds, Soft, No tenderness, No hepatospenomegaly, No masses Extremities: Bilateral pedal edema +, No clubbing, No cyanosis, Normal pulses. Skin: No rashes, No breakdown, No significant lesion Neuro: Use walker, Normal speech, Strength at 4/5 X4 ext, Normal tone, Sensation intact, grossly intact cranial nerves. Psych/Mental Status: Mental status NL, Mood NL Consults/Reason for consult No consultation was done Operations or Procedures EXAM: CT HEAD WITHOUT CONTRAST INDICATION: ams TECHNIQUE: CT of the head without intravenous contrast. Coronal and sagittal reformatted images are submitted. Radiation Dose : 1. Head: CT Dose: CTDI volume is 64.89 mGy. Dose-length product is 1278.56 mGy*cm The dose indicators for CT are the volume Computed Tomography (CT) Dose Index (CTDIvol) and the Dose Length Product (DLP), and are measured in units of mGy and mGy-cm, respectively. These indicators are not patient dose, but values generated from the CT scanner acquisition factors. The report includes radiation exposure data for exposures received during this examination. All CT scans at this medical facility are performed using dose modulation techniques as appropriate to a performed exam including the following: Automated exposure control was utilized; adjustment of the MA and/or KV according to patient size; and use of iterative reconstruction technique. COMPARISON: CT HEAD WITHOUT CONTRAST on DOS: 09/17/24, CT HEAD WITHOUT CONTRAST on DOS: 05/07/24 FINDINGS: There is no evidence of acute intracranial hemorrhage, extra-axial collection, mass effect, midline shift, herniation or hydrocephalus. The ventricles, sulci and cisterns are age appropriate. The eaton-white differentiation is intact. The visualized paranasal sinuses and mastoid air cells are clear. No depressed calvarial fracture. The surrounding soft tissues are unremarkable. IMPRESSION: 1. No evidence of acute intracranial abnormality. Bilateral lower extremity venous duplex Clinical History: Pain and edema Comparison: US RT LOWER DVT on DOS: 02/08/24, US BILAT LOWER DVT on DOS: 02/06/24 Technique: Duplex Doppler evaluation of the deep venous systems of both lower extremities from the common femoral veins to the popliteal veins including color Doppler and spectral/pulsed waveform analysis was performed. Findings: RIGHT SIDE: The common femoral vein demonstrates appropriate compressibility and waveform variability. There is compressibility/patency of the great saphenous vein at the proximal thigh. The femoral vein demonstrates appropriate compressibility and waveform variability. The deep femoral vein demonstrates appropriate compressibility and waveform variability. The popliteal vein demonstrates appropriate compressibility and waveform variability. There is normal compressibility at the tibioperoneal trunk. LEFT SIDE: The common femoral vein demonstrates appropriate compressibility and waveform variability. There is compressibility/patency of the great saphenous vein at the proximal thigh. The femoral vein demonstrates appropriate compressibility and waveform variability. The deep femoral vein demonstrates appropriate compressibility and waveform variability. The popliteal vein demonstrates appropriate compressibility and waveform variability. There is normal compressibility at the tibioperoneal trunk. Impression: No right or left femoropopliteal venous thrombosis. Condition at Discharge: Guarded Final Diagnosis/Problems List # Acute metabolic encephalopathy likely secondary to hepatic encephalopathy # History of liver cirrhosis # Thrombocytopenia likely due to cirrhosis # Chronic macrocytic anemia # Hyperbilirubinemia and transaminitis likely due to cirrhosis # Dilutional hyponatremia secondary to cirrhosis # Coagulopathy secondary to cirrhosis # JOSE ALBERTO on CKD likely due to VMN # Acute complicated cystitis # Moderate protein calorie malnutrition Discharge Disposition: Hospice - Home Discharge Instruct/Medications Diet: Renal Activity: No Restrictions, As Tolerated Follow Up/Referral: Follow up with PCP in 1 week. Discharge Statement: "Patient was advised to return to the ER or call 911 if any headaches, dizziness, shortness of breath, chest pain, abdominal pain, bleeding, fevers, or worsening of medical condition. Patient was counseled about treatment plan, medications, possible side effects, patientverbalized understanding. All questions were answered to the best of my ability. This discharge took greater then 30 minutes in planning, reviewing documentation, counseling the patient, and discussing with other team members." ASSESSMENT ASSESSMENT Assessment # Acute metabolic encephalopathy likely secondary to hepatic encephalopathy # History of liver cirrhosis # Thrombocytopenia likely due to cirrhosis # Chronic macrocytic anemia # Hyperbilirubinemia and transaminitis likely due to cirrhosis # Dilutional hyponatremia secondary to cirrhosis # Coagulopathy secondary to cirrhosis # JOSE ALBERTO on CKD likely due to VMN # Acute complicated cystitis # Moderate protein calorie malnutrition Date of Service: Nov 02, 2024 Billing Provider: DIANELYS CONTRERAS MD Common Visit Codes: 12444-LBD/OBS DISCH DAY >30min SUSHIL COOPER RESIDENT Nov 02, 2024 15:44 DIANELYS CONTRERAS MD Nov 03, 2024 11:25
== END 2024-11-02 16:25 | disposition hospice, home (50) | DRG 441 ==
LOC: ER 08:12 → EDBD 08:12 → EDUNIT# 08:12 → OVERFLOW 12:03 → EAST 10-30 23:22
PROVIDERS: ADMIT Family Medicine; ATTEND Family Medicine
DX: K76.82 Hepatic encephalopathy (principal); G93.41 Metabolic encephalopathy; N17.0 Acute kidney failure with tubular necrosis; E87.1 Hypo-osmolality and hyponatremia; N30.00 Acute cystitis without hematuria; D68.9 Coagulation defect, unspecified; E44.0 Moderate protein-calorie malnutrition; Z16.21 Resistance to vancomycin; Z51.5 Encounter for palliative care; K74.60 Unspecified cirrhosis of liver; D69.6 Thrombocytopenia, unspecified; I50.9 Heart failure, unspecified; D53.9 Nutritional anemia, unspecified; E80.6 Other disorders of bilirubin metabolism; K21.9 Gastro-esophageal reflux disease without esophagitis; N18.9 Chronic kidney disease, unspecified; Z96.642 Presence of left artificial hip joint; Z68.32 Body mass index [BMI] 32.0-32.9, adult; Z98.51 Tubal ligation status; Z79.899 Other long term (current) drug therapy
CPT/HCPCS: 36415; 70450; 71045; 80048; 80053; 81001; 82140; 82962; 83605; 83690; 83880; 84443; 84484; 85025; 85610; 85730; 87086; 87088; 87186; 93005; 93970; 99291; G0378; J1335; J2405